=== PATIENT | male | born 1950 | race Caucasian/White ===

== ENCOUNTER → 2016-02-27 | Outpatient (CLI) | payer MEDICARE, BC ==
--- NOTE | 2016-02-28 07:15 | XR ---
EXAMINATION TYPE: XR chest 2V DATE OF EXAM: 02/27/2016 4:45 PM COMPARISON: 08/09/2015 HISTORY: Shortness of breath TECHNIQUE: Frontal and lateral views of the chest are obtained. FINDINGS: Scattered senescent parenchymal changes noted. Hyperinflation compatible with COPD. Postoperative sravanthi nges right hemithorax. Chronic pleural parenchymal opacity left lateral lung base. No evidence for infiltrate. No evidence for atelectasis. Heart size is stable. Mediastinal structures are stable and grossly unremarkable. No evidence for hilar prominence. Degenerative changes dorsal spine. IMPRESSION: 1. No evidence for acute pulmonary disease.
== END | disposition home or self-care (01) ==
LOC: RADXRMAIN 16:19
PROVIDERS: ATTEND Internal Medicine Hematology & Oncology
DX: I10 Essential (primary) hypertension (principal); C50 Malignant neoplasm of breast; J44.1 Chronic obstructive pulmonary disease with (acute) exacerbation; Z87.01 Personal history of pneumonia (recurrent)
CPT/HCPCS: 71020

== ENCOUNTER 2016-05-10 16:08 | Emergency (ER) | payer BC, MEDICARE, OTHER ==
[2016-05-10 16:18] VITALS: BP 125/72; PULSE 72; RESP 16; TEMP 98
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
--- NOTE | 2016-05-10 18:18 | XR ---
Lumbar spine HISTORY: Low back pain 3 views of the lumbar spine No comparisons Lumbar vertebral bodies show preserved alignment. There is loss of vertebral body height at L1. Loss of disc height at L5-S1 with associated vacuum phenomenon. Multilevel spondylosis. Sclerosis present in the posterior elements. Small calcifications over the left paraspinal location measuring 5 and 8 m m could possibly represent renal stones. There is a mild levoscoliosis. IMPRESSION: Compression fracture L1 with loss of height of approximately 25%. No evident significant retropulsion. Degenerative disc disease and facet arthropathy, possible nephrolithiasis
--- NOTE | 2016-05-10 18:19 | XR ---
Sacrum and coccyx HISTORY: Trauma and pain 3 views of the sacrum and coccyx, correlation lumbar spine same date Bone mineralization is maintained. No fracture or dislocation is evident. IMPRESSION: Degenerative disc disease, no acute abnormality
[2016-05-10] MEDS ORDERED: ACET/COD 300 MG/30 MG STARTER PACK 6 TAB BTL PO STA (18:33)
== END 2016-05-10 19:05 | disposition home or self-care (01) ==
LOC: EC 16:08
DX: S32.018A Other fracture of first lumbar vertebra, initial encounter for closed fracture (principal); Z87.891 Personal history of nicotine dependence; Z88.2 Allergy status to sulfonamides; Z91.030 Bee allergy status; Z87.820 Personal history of traumatic brain injury; W18.30XA Fall on same level, unspecified, initial encounter; Y92.009 Unspecified place in unspecified non-institutional (private) residence as the place of occurrence of the external cause
CPT/HCPCS: 72100; 72220; 99283

== ENCOUNTER 2016-05-11 15:44 | Inpatient (IN) | payer MEDICARE, BC ==
[2016-05-11] MEDS ORDERED: ACETAMINOPHEN IV (For NPO) 1,000 MG in EMPTY BAG 1 BAG IVPB STA (16:34)
[2016-05-11] MEDS ORDERED: KETOROLAC 30 MG/ML 1 ML VIAL IVP STA (16:34)
[2016-05-11] MEDS ORDERED: SODIUM CHLORIDE 0.9% 1,000 ML IV STA ×2 (16:34)
[2016-05-11] MEDS ORDERED: LORazepam 2 MG/ML SYRINGE IV STA (16:34)
[2016-05-11] MEDS ORDERED: MORPHINE SULFATE 4 MG/ML SYRINGE IV STA (16:34)
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
[2016-05-11 17:27] LABS: Prothrombin Time 10.6 sec (9.0-12.0)
[2016-05-11 17:28] LABS: ALT 30 U/L (21-72); AST 19 U/L (17-59); Alkaline Phosphatase 100 U/L (38-126); Anion Gap 10 mmol/L; Blood Urea Nitrogen 16 mg/dL (9-20); Calcium 9.8 mg/dL (8.4-10.2); Carbon Dioxide 26 mmol/L (22-30); Chloride 106 mmol/L (98-107); Glucose 97 mg/dL (74-99); Magnesium 1.8 mg/dL (1.6-2.3); Non-African American GFR(MDRD) >60 (>60 ml/min/1.73 sqM); Partial Thromboplastin Time 23.8 sec (22.0-30.0); Phosphorous 3.2 mg/dL (2.5-4.5); Potassium 4.5 mmol/L (3.5-5.1); Sodium 142 mmol/L (137-145); Total Bilirubin 1.4 mg/dL (0.2-1.3); Total Protein 7.2 g/dL (6.3-8.2)
[2016-05-11 17:30] LABS: Creatine Kinase 62 U/L (55-170)
[2016-05-11 17:34] LABS: Basophils % (A) 0 %; CH 31.2; CHCM 34.2; Eosinophils # (A) 0.1 k/uL (0-0.7); Eosinophils % (A) 2 %; HCT 46.5 % (39.0-53.0); HDW 2.81; HGB 15.6 gm/dL (13.0-17.5); Luc # (Auto) 0.13; Luc % (Auto) 3; Lymphocytes # (A) 0.7 k/uL (1.0-4.8); Lymphocytes % (A) 14 %; MCH 30.7 pg (25.0-35.0); MCHC 33.5 g/dL (31.0-37.0); MCV 91.6 fL (80.0-100.0); Mean Platelet Volume 7.2; Monocytes # (A) 0.4 k/uL (0-1.0); Monocytes % (A) 8 %; Neutrophils # (A) 3.7 k/uL (1.3-7.7); Neutrophils % (A) 73 %; RBC 5.07 m/uL (4.30-5.90); RDW 12.7 % (11.5-15.5); WBC 5.1 k/uL (3.8-10.6); WBC (Perox) 4.83
[2016-05-11 17:43] LABS: Creatine Kinase MB 1.6 ng/mL (0.0-2.4); Troponin I <0.012 ng/mL (0.000-0.034)
[2016-05-11] MEDS ORDERED: SODIUM CHLORIDE 0.9% 1,000 ML IV ONE (17:52)
[2016-05-11] MEDS ORDERED: MORPHINE SULFATE 4 MG/ML SYRINGE IVP STA (17:53)
[2016-05-11] MEDS ORDERED: ONDANSETRON 4 MG/2 ML VIAL IVP PRN (17:53)
--- NOTE | 2016-05-11 18:41 | CT ---
"EXAMINATION TYPE: CT lumbar spine wo con DATE OF EXAM: 05/11/2016 6:28 PM COMPARISON: CT abdomen pelvis March 06, 2014 HISTORY: Lower back pain. CT DLP: 2844.1 mGycm Automated exposure control for dose reduction was used. FINDINGS: There are 5 lumbar-type vertebra redemonstrated. Lumbar spine shows new acute mild compression type f racture deformity at L1 level. Fracture extends through superior and inferior as well as anterior and posterior endplates. No suspicious posterior retropulsion is however seen. Mild height loss anterior ly is noted. Remainder of vertebral body heights are maintained. There is mild disc space narrowing L 4-L5 and L5-S1 levels redemonstrated. Spinal canal is preserved. No large posterior disc herniations are seen. Paraspinal muscle bulk is maintained. Review of axial images shows mild to moderate facet arthropathy from L2-L3 through L5-S1 levels bilat erally. There is spinal canal effacement at L2-L3 level due to facet arthropathy with ligamentum flav um hypertrophy and broad disc bulge on axial image 56. Similar finding is noted L3-L4 level on axial image 67. There is most pronounced spinal canal effacement or stenosis at L4-L5 level due to moderate facet arthropathy and disc herniation on axial image 78. There are 2 calculi lower pole calyx left kidney on coronal image 33 redemonstrated felt stable IMPRESSION: THERE IS ACUTE COMMINUTED OR BURST MILD COMPRESSION TYPE FRACTURE DEFORMITY OF L1 VERTEBRA WITH EXTEN OLE TO THE POSTERIOR VERTEBRAL BODY MARGIN BUT NO SUSPICIOUS POSTERIOR RETROPULSION. OTHER FINDINGS NOTED ABOVE. A Yellow message has been communicated to Nish Monroy via the mGenerator | Critical Result lis lal on 05/11/2016 6:38 PM, Message ID [id number]."
[2016-05-11] MEDS: ANASTROZOLE 1 MG TAB PO SCH (21:52)
[2016-05-11 22:07] VITALS: BMI 31.2
[2016-05-12] MEDS: ACETAMINOPHEN IV (For NPO) 1,000 MG in EMPTY BAG 1 BAG IVPB SCH ×3 (01:31→11:27)
[2016-05-12 01:48] LABS: Appearance,Urine Clear (Clear); Bilirubin,Urine Negative (Negative); Calcium Oxalate Crystals,Urine Moderate /hpf; Glucose,Urine (UA) Negative (Negative); Ketones,Urine Negative (Negative); Leukocyte Esterase,Urine Negative (Negative); Mucus,Urine Occasional /hpf; Nitrite,Urine Negative (Negative); PH, Urine 5.5 (5.0-8.0); Particle Count 5303; Protein,Urine Trace (Negative); RBC,Urine 31 /hpf (0-5); Specific Gravity,Urine 1.032 (1.001-1.035); Squamous Epithelial Cell,Urine <1 /hpf (0-4); UA Billing (MACRO vs. MICRO) MICRO; Urobilinogen,Urine <2.0 mg/dL (<2.0); WBC,Urine 6 /hpf (0-5)
[2016-05-12] MEDS: MORPHINE SULFATE 4 MG/ML SYRINGE IVP PRN ×4 (02:33→19:33)
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
[2016-05-12] MEDS: DOCUSATE 100 MG CAP PO SCH ×2 (08:58→20:50)
[2016-05-12] MEDS: HYDROcodone/APAP 5-325MG 1 EACH TAB PO PRN ×2 (10:02→16:36)
[2016-05-12] MEDS: ENOXAPARIN 40 MG/0.4 ML SYRINGE SQ SCH (10:03)
[2016-05-12] MEDS: SENNOSIDES-DOCUSATE SODIUM 1 EACH TAB PO SCH ×2 (16:32→22:21)
[2016-05-12] MEDS ORDERED: Acetaminophen-Codeine 300-30mg TAB PO PRN (18:02)
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
[2016-05-12] MEDS: CALCIUM CARB-VIT D 250MG-125UN 1 EACH TAB PO SCH (19:32)
[2016-05-12] MEDS: ANASTROZOLE 1 MG TAB PO SCH (20:50)
[2016-05-13] MEDS: HYDROcodone/APAP 5-325MG 1 EACH TAB PO PRN ×3 (01:45→17:30)
[2016-05-13] MEDS: MORPHINE SULFATE 4 MG/ML SYRINGE IVP PRN ×3 (03:19→15:03)
[2016-05-13] MEDS: ENOXAPARIN 40 MG/0.4 ML SYRINGE SQ SCH (07:58)
[2016-05-13] MEDS: DOCUSATE 100 MG CAP PO SCH ×2 (08:00→20:35)
[2016-05-13 08:01] LABS: Basophils % (A) 0 %; CH 31.1; CHCM 34.3; Eosinophils # (A) 0.3 k/uL (0-0.7); Eosinophils % (A) 5 %; HDW 2.88; HGB 12.8 gm/dL (13.0-17.5); Luc # (Auto) 0.18; Luc % (Auto) 4; Lymphocytes # (A) 0.9 k/uL (1.0-4.8); Lymphocytes % (A) 19 %; MCH 30.6 pg (25.0-35.0); MCHC 33.6 g/dL (31.0-37.0); MCV 91.2 fL (80.0-100.0); Mean Platelet Volume 7.7; Monocytes # (A) 0.4 k/uL (0-1.0); Monocytes % (A) 9 %; Neutrophils % (A) 62 %; RBC 4.17 m/uL (4.30-5.90); RDW 12.5 % (11.5-15.5); WBC 4.7 k/uL (3.8-10.6); WBC (Perox) 4.79
[2016-05-13] MEDS: SENNOSIDES-DOCUSATE SODIUM 1 EACH TAB PO SCH ×2 (08:01→20:35)
[2016-05-13] MEDS: CALCIUM CARB-VIT D 250MG-125UN 1 EACH TAB PO SCH ×2 (08:01→17:31)
[2016-05-13 08:55] LABS: Anion Gap 12 mmol/L; Blood Urea Nitrogen 22 mg/dL (9-20); Calcium 9.6 mg/dL (8.4-10.2); Carbon Dioxide 21 mmol/L (22-30); Chloride 112 mmol/L (98-107); Glucose 87 mg/dL (74-99); Non-African American GFR(MDRD) >60 (>60 ml/min/1.73 sqM); Sodium 145 mmol/L (137-145)
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
[2016-05-13 09:07] LABS: Potassium 4.9 mmol/L (3.5-5.1)
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
--- NOTE | 2016-05-13 11:27 | XR ---
EXAMINATION TYPE: XR chest 1V DATE OF EXAM: 05/13/2016 10:33 AM COMPARISON: 02/27/2016 and 03/06/2014 HISTORY: 65-year-old male is here for rehabilitation TECHNIQUE: Single frontal view of the chest is obtained. FINDINGS: Heart is normal size. Patchy bibasilar opacities persist. Chronic blunting left costophrenic angle. S uggestion of a staple line at the peripheral right base and medial right apex. Chronic posttraumatic deformity at the right AC joint. IMPRESSION: Chronic changes with postsurgical changes on the right and chronic pleural parenchymal scarring at th e left base. No definite acute process.
[2016-05-13] MEDS ORDERED: BISACODYL 10 MG SUPP RECTAL STA (11:32)
[2016-05-13] MEDS: ALBUTEROL NEBULIZED 2.5 MG/3 ML INHALATION PRN ×2 (15:23→19:38)
[2016-05-13] MEDS: LACTULOSE 20 GM/30 ML CUP PO SCH ×3 (15:25→20:30)
[2016-05-13] MEDS: ANASTROZOLE 1 MG TAB PO SCH (20:45)
--- NOTE | 2016-05-13 23:38 | PN ---
DATE OF SERVICE: 05/13/2016 This 65-year-old gentleman who was admitted with fall as well as significant fracture of the L1 has back pain. The patient has been fitted with a brace at this time. No chest pain. No palpitation. No fever. On exam, alert and oriented x3. Pulse 61, blood pressure 115/67, respiration 18, temperature 98.2, pulse ox 91% on room air. HEENT: Conjunctivae normal. NECK: No jugular venous distention. CARDIOVASCULAR SYSTEM: S1, S2 muffled. RESPIRATORY SYSTEM: Breath sounds diminished at the bases. A few rhonchi. No crackles. ABDOMEN: Soft, non-tender. LEGS: No edema. No swelling. NERVOUS SYSTEM: No focal deficit. LABS: Hemoglobin 12.8. UA noted. ASSESSMENT: 1. Fall and compression fracture at L1 with severe back pain. 2. Gait dysfunction secondary to number 1. 3. Increased bilirubin. 4. Possible urinary tract infection. 5. History of chronic obstructive pulmonary disease. 6. History of gastrointestinal bleed. 7. History of traumatic brain injury. 8. History of gait dysfunction. 9. Appendectomy. 10. History of degenerative joint disease. 11. Remote history of nicotine dependence. 12. Obesity; body mass index of 31.2. 13. FULL CODE. RECOMMENDATIONS AND DISCUSSION: I recommend to continue with the current medications, continue with symptomatic treatment. Otherwise, pain management. Empiric antibiotics. Otherwise, PT, OT evaluation. Possible ECF rehab. Guarded prognosis. Further recommendations to follow.
[2016-05-14] MEDS: HYDROcodone/APAP 5-325MG 1 EACH TAB PO PRN ×4 (00:15→19:38)
[2016-05-14 07:26] LABS: Basophils % (A) 1 %; CH 30.7; Eosinophils # (A) 0.3 k/uL (0-0.7); Eosinophils % (A) 4 %; HCT 40.9 % (39.0-53.0); HDW 2.82; HGB 13.3 gm/dL (13.0-17.5); Luc # (Auto) 0.25; Luc % (Auto) 4; Lymphocytes # (A) 0.7 k/uL (1.0-4.8); Lymphocytes % (A) 10 %; MCH 30.2 pg (25.0-35.0); MCHC 32.4 g/dL (31.0-37.0); MCV 93.2 fL (80.0-100.0); Mean Platelet Volume 6.9; Monocytes # (A) 0.9 k/uL (0-1.0); Monocytes % (A) 13 %; Neutrophils # (A) 4.8 k/uL (1.3-7.7); Neutrophils % (A) 70 %; RBC 4.39 m/uL (4.30-5.90); RDW 12.5 % (11.5-15.5); WBC 6.9 k/uL (3.8-10.6); WBC (Perox) 6.66
[2016-05-14 07:47] LABS: Anion Gap 12 mmol/L; Blood Urea Nitrogen 20 mg/dL (9-20); Calcium 9.6 mg/dL (8.4-10.2); Carbon Dioxide 20 mmol/L (22-30); Chloride 110 mmol/L (98-107); Glucose 93 mg/dL (74-99); Non-African American GFR(MDRD) >60 (>60 ml/min/1.73 sqM); Potassium 4.6 mmol/L (3.5-5.1); Sodium 142 mmol/L (137-145)
[2016-05-14] MEDS: ALBUTEROL NEBULIZED 2.5 MG/3 ML INHALATION PRN (08:15)
[2016-05-14] MEDS: CALCIUM CARB-VIT D 250MG-125UN 1 EACH TAB PO SCH ×2 (08:24→20:51)
[2016-05-14] MEDS: SENNOSIDES-DOCUSATE SODIUM 1 EACH TAB PO SCH ×2 (08:24→20:54)
[2016-05-14] MEDS: DOCUSATE 100 MG CAP PO SCH ×2 (08:24→20:55)
[2016-05-14] MEDS: ENOXAPARIN 40 MG/0.4 ML SYRINGE SQ SCH (08:24)
--- NOTE | 2016-05-14 15:32 | P.PN ---
Progress Note - Text The patient is seen and examined today at bedside. We are following him in regards to his L1 compression fracture. He says the pain is still present particular when he tries to mobilize. The brace appears to be fitting quite well for him. He is not having any further neurologic changes. He does have history of traumatic brain injury which is stable. On exam his back has some tenderness at his thoracic lumbar junction. There is no open wounds lacerations or abrasions. He has motion intact in his hands and feet lower extremity. Sensations intact. His abdomen soft nontender. The brace is appropriate for him and well. L1 traumatic compression fracture, acute stable with no neurologic deficit History of traumatic brain injury The patient's L1 fracture is due to his trauma and appears to be grossly stable without any neurologic deficit. I do not think that he will require further imaging at this point. We have ordered an LSO brace for him which is fitting appropriately. He has been evaluated by our service as well as by the brace orthotists company was evaluated the brace on him. It is fitting well and does not seem to cause any undue harm to any other structures. Apparently his mother has some issues with the brace but in reviewing the brace and his fracture I think that the brace that we have ordered is appropriate for him and does fit well for him. I would not plan on changing the brace. I think that he should continue treatment in a conservative fashion with brace management for the fracture as the fracture fracture should heal well over the next 8-12 weeks. It is okay for him to mobilize with the brace on. He does not need to have the brace on while he is in bed. I would plan to see him back on an outpatient basis in the next 1-2 weeks for recheck evaluation and repeat x-rays of his thoracic or lumbar spine at L1 to review the fracture. If he is not having appropriate improvement or if there is significant evidence of instability or decreasing vertebral height we could consider the possibility of kyphoplasty at L1. I discussed this with him and he is not interested in any surgical intervention at this point. I think that is reasonable and I would plan for continued brace treatment with the current brace that he has ordered. I discussed this issue with the house staff as well and I understand mother's concerns but the brace that we have at bedside is appropriate for him and we will plan to continue use of his current brace.
[2016-05-14] MEDS: ANASTROZOLE 1 MG TAB PO SCH (20:55)
[2016-05-14] MEDS: CEFUROXIME 250 MG TAB PO SCH (20:55)
[2016-05-15] MEDS: HYDROcodone/APAP 5-325MG 1 EACH TAB PO PRN ×2 (06:15→12:59)
[2016-05-15] MEDS: ALBUTEROL NEBULIZED 2.5 MG/3 ML INHALATION PRN ×2 (08:08→19:32)
[2016-05-15 08:38] LABS: Basophils % (A) 1 %; CH 31.3; CHCM 34.3; Eosinophils # (A) 0.4 k/uL (0-0.7); Eosinophils % (A) 8 %; HCT 38.3 % (39.0-53.0); HDW 2.86; HGB 13.1 gm/dL (13.0-17.5); Luc # (Auto) 0.22; Luc % (Auto) 5; Lymphocytes # (A) 0.6 k/uL (1.0-4.8); Lymphocytes % (A) 12 %; MCH 31.4 pg (25.0-35.0); MCHC 34.3 g/dL (31.0-37.0); MCV 91.7 fL (80.0-100.0); Mean Platelet Volume 7.8; Monocytes # (A) 0.4 k/uL (0-1.0); Monocytes % (A) 8 %; Neutrophils # (A) 3.3 k/uL (1.3-7.7); Neutrophils % (A) 67 %; RBC 4.18 m/uL (4.30-5.90); RDW 12.5 % (11.5-15.5); WBC 4.9 k/uL (3.8-10.6); WBC (Perox) 5.25
--- NOTE | 2016-05-15 08:46 | PN ---
DATE OF SERVICE: 05/14/2016 This 65-year-old gentleman who was admitted with a fall and compression fracture L1, severe back pain also, the patient has been closely monitored. No chest pain, no palpitations. No fever. On exam, alert and oriented x3. Pulse 81, blood pressure 111/92, respirations 20, temperature 97.4, pulse ox 93% on room air. HEENT: Conjunctivae normal. NECK: No jugular venous distention. CARDIOVASCULAR: S1 and S2, muffled. RESPIRATORY: Breath sounds diminished at the bases. No rhonchi, no crackles. ABDOMEN: Soft. NERVOUS SYSTEM: Unchanged. Labs are noted. CO2 is 20. ASSESSMENT: 1. Fall and compression fracture L1 with severe back pain. 2. Gait dysfunction secondary to #1. 3. Increased bilirubin. 4. Urinary tract infection. 5. Chronic obstructive pulmonary disease history. 6. History of gastrointestinal bleed. 7. History of traumatic brain injury. 8. History of gait dysfunction. 9. History of appendectomy. 10. History of degenerative joint disease. 11. Remote history of nicotine dependence. 12. Obesity with body mass index of 31.2. 13. FULL CODE. RECOMMENDATIONS AND DISCUSSION: I recommend to continue the current medications, continue monitoring and symptomatic treatment. Otherwise, at this time I would recommend to monitor the patient closely. Otherwise, closely follow with PT, OT evaluation and pain management and possibly ECF rehab. Guarded prognosis because of multiple complex medical issues. Further recommendations to follow.
[2016-05-15 09:00] LABS: Anion Gap 8 mmol/L; Blood Urea Nitrogen 18 mg/dL (9-20); Calcium 9.5 mg/dL (8.4-10.2); Carbon Dioxide 26 mmol/L (22-30); Chloride 107 mmol/L (98-107); Glucose 98 mg/dL (74-99); Non-African American GFR(MDRD) >60 (>60 ml/min/1.73 sqM); Potassium 4.5 mmol/L (3.5-5.1); Sodium 141 mmol/L (137-145)
[2016-05-15] MEDS: CEFUROXIME 250 MG TAB PO SCH ×2 (09:16→20:03)
[2016-05-15] MEDS: ENOXAPARIN 40 MG/0.4 ML SYRINGE SQ SCH (09:17)
[2016-05-15] MEDS: DOCUSATE 100 MG CAP PO SCH ×2 (09:17→20:03)
[2016-05-15] MEDS: CALCIUM CARB-VIT D 250MG-125UN 1 EACH TAB PO SCH ×2 (09:18→18:17)
[2016-05-15] MEDS: SENNOSIDES-DOCUSATE SODIUM 1 EACH TAB PO SCH ×2 (09:20→20:05)
--- NOTE | 2016-05-15 15:32 | P.PN ---
Progress Note - Text Patient is seen and examined today at bedside. His mother is present with him at bedside. I discussed his issues with him and with her and answered their questions best my ability. On exam his is exam is essentially unchanged. His lower extremity is have sustained strength. He has no skin breakdown. I checked the brace again and I decided to remove the sternal anterior component of the TLSO brace. The brace should work well as a high chair back brace for him with this component removed. Lumbar compression fracture History of traumatic brain injury The patient should do well with continued conservative management for his compression fracture. He was having difficulty tolerating the sternal anterior brace component and I went ahead and remove the component. The brace still gives him good support as a chairback brace particular given his lumbar fracture that should be good stabilization for him without the sternal component. I discussed this with him and his mother and they understand and they're more comfortable with this. He will continue conservative management and can follow-up with me on an outpatient basis in approximately 3 weeks for recheck evaluation and repeat x-rays. He may ambulate to tolerance with the brace intact.
[2016-05-15] MEDS: BENZOCAINE 20% HEMORRHOIDAL OINT 28GM RECTAL SCH (18:18)
[2016-05-15] MEDS: ANASTROZOLE 1 MG TAB PO SCH (20:02)
[2016-05-15] MEDS ORDERED: HYDROCORTISONE SUPPOSITORY 25 MG SUPP RECTAL SCH (21:00)
[2016-05-15 22:57] VITALS: RESP 16
--- NOTE | 2016-05-15 23:49 | PN ---
DATE OF SERVICE: 05/15/2016 This 65-year-old gentleman who was admitted with fall and compression fracture L1 has severe back pain. The patient is being closely monitored. Pain management is being continued. Orthopedic Surgery is recommending a brace at this time. ECF rehab is also planned. On exam, alert and oriented x2. Dysarthric. Pulse 64, blood pressure 101/60, respiration 18, temperature 97.1, pulse ox 94% on room air. HEENT: Conjunctivae normal. CARDIOVASCULAR SYSTEM: S1, S2 muffled. RESPIRATORY SYSTEM: Breath sounds diminished at the bases. A few scattered rhonchi. No crackles. ABDOMEN: Soft, non-tender. LEGS: No edema. No swelling. NERVOUS SYSTEM: Unchanged. LABS: Hemoglobin 13.1, white count 4.9. CBC within normal limits. ASSESSMENT: 1. Fall and compression fracture, L1, with severe back pain. 2. Gait dysfunction secondary to #1. 3. Increased bilirubin. 4. Urinary tract infection. 5. Chronic obstructive pulmonary disease. 6. History of gastrointestinal bleed. 7. History of traumatic brain injury. 8. History of gait dysfunction. 9. History of appendectomy. 10. History of degenerative joint disease. 11. Remote history of nicotine dependence. 12. Obesity with body mass index of 31.2. 13. FULL CODE. RECOMMENDATIONS AND DISCUSSION: I recommend to continue with the current medications, continue with the monitoring, symptomatic treatment. Otherwise, close monitoring. Possible ECF rehab. Further recommendations to follow.
[2016-05-16] MEDS: HYDROcodone/APAP 5-325MG 1 EACH TAB PO PRN ×3 (02:43→15:09)
[2016-05-16 07:39] VITALS: BP 103/71; TEMP 97.7
[2016-05-16] MEDS: ALBUTEROL NEBULIZED 2.5 MG/3 ML INHALATION PRN ×2 (07:47→13:16)
[2016-05-16 08:10] LABS: Basophils % (A) 1 %; CHCM 33.8; Eosinophils # (A) 0.3 k/uL (0-0.7); Eosinophils % (A) 7 %; HCT 40.6 % (39.0-53.0); HDW 2.89; Luc # (Auto) 0.17; Luc % (Auto) 4; Lymphocytes # (A) 0.9 k/uL (1.0-4.8); Lymphocytes % (A) 19 %; MCH 29.6 pg (25.0-35.0); MCHC 32.1 g/dL (31.0-37.0); MCV 92.3 fL (80.0-100.0); Monocytes # (A) 0.4 k/uL (0-1.0); Monocytes % (A) 8 %; Neutrophils # (A) 2.9 k/uL (1.3-7.7); Neutrophils % (A) 62 %; RDW 12.7 % (11.5-15.5); WBC 4.7 k/uL (3.8-10.6); WBC (Perox) 5.21
[2016-05-16 08:30] LABS: Anion Gap 8 mmol/L; Blood Urea Nitrogen 20 mg/dL (9-20); Calcium 9.6 mg/dL (8.4-10.2); Carbon Dioxide 28 mmol/L (22-30); Chloride 108 mmol/L (98-107); Glucose 89 mg/dL (74-99); Non-African American GFR(MDRD) >60 (>60 ml/min/1.73 sqM); Potassium 4.6 mmol/L (3.5-5.1); Sodium 144 mmol/L (137-145)
[2016-05-16] MEDS: CALCIUM CARB-VIT D 250MG-125UN 1 EACH TAB PO SCH (08:30)
[2016-05-16] MEDS: DOCUSATE 100 MG CAP PO SCH (08:31)
[2016-05-16] MEDS: CEFUROXIME 250 MG TAB PO SCH (08:31)
[2016-05-16] MEDS: ENOXAPARIN 40 MG/0.4 ML SYRINGE SQ SCH (08:31)
[2016-05-16] MEDS: SENNOSIDES-DOCUSATE SODIUM 1 EACH TAB PO SCH (08:34)
--- NOTE | 2016-05-16 12:13 | DS ---
DATE OF ADMISSION: 05/13/2016 DATE OF DISCHARGE: FINAL DIAGNOSES: 1. Fall and compression fracture L1 with severe back pain. 2. Gait dysfunction secondary to #1. 3. Increased bilirubin. 4. Urinary tract infection. 5. Chronic obstructive pulmonary disease. 6. History of gastrointestinal bleed. 7. History of traumatic brain injury. 8. History of gait dysfunction. 9. History of appendectomy. 10. History of degenerative joint disease. 11. Remote history of nicotine dependence. 12. Obesity with a body mass index of 31.2. 13. FULL CODE. DISCHARGE DISPOSITION: The patient will be discharged in a stable with a guarded prognosis. Total time taken 35 minutes. HISTORY OF PRESENT ILLNESS: This 65-year-old gentleman with a past medical history of multiple medical problems was admitted with a fall and compression fracture of L1. The patient's pain and gait dysfunction treated symptomatically. Orthopedics saw the patient, recommended brace and PT, OT evaluation, possible ECF rehab. On exam, vitals are stable. CARDIOVASCULAR: S1 and S2 muffled. ABDOMEN: Soft. NERVOUS SYSTEM: Nonfocal. DISCHARGE ADVICE AND MEDICATIONS: 1. Diet is cardiac. 2. Activity limited until followup. 3. Follow up with Dr. Landers as mentioned earlier. 4. Follow up with Dr. Hurt or Dr. De Jesus in the ECF with CBC, BMP in 2 to 3 days and continued followup. 5. Follow up with Dr. Wheat in 2 weeks. 6. Other medications are: a. Albuterol q.i.d. and p.r.n. b. Arimidex 1 mg q.h.s. c. Calcium carbonate with vitamin D 1 p.o. b.i.d. d. Ceftin 500 mg p.o. b.i.d. for 5 days. e. Colace 100 mg p.o. b.i.d. f. Hydrocodone ([place]) 5 mg 1 to 2 tablets every 6 hours p.r.n. g. Senna 2 tablets q.h.s. p.r.n. h. Fentanyl patch 12 mcg q.72 hours until the back pain is controlled on a short-term basis. 7. Antibiotics for urinary tract infection.
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
[2016-05-16] MEDS: BENZOCAINE 20% HEMORRHOIDAL OINT 28GM RECTAL SCH (12:31)
[2016-05-16 13:27] VITALS: PULSE 78
== END 2016-05-16 15:10 | DRG 552 ==
LOC: EC 15:44 → 5MS5E 17:54 → OBSVTOIN 05-13 09:15
PROVIDERS: ADMIT Hospitalist; ATTEND Hospitalist
DX: S32.019A Unspecified fracture of first lumbar vertebra, initial encounter for closed fracture (principal); N39.0 Urinary tract infection, site not specified; J44.9 Chronic obstructive pulmonary disease, unspecified; E66.9 Obesity, unspecified; M19.90 Unspecified osteoarthritis, unspecified site; M46.96 Unspecified inflammatory spondylopathy, lumbar region; M51.36 Other intervertebral disc degeneration, lumbar region; R26.9 Unspecified abnormalities of gait and mobility; R47.1 Dysarthria and anarthria; Z68.31 Body mass index [BMI] 31.0-31.9, adult; Z79.810 Long term (current) use of selective estrogen receptor modulators (SERMs); Z85.3 Personal history of malignant neoplasm of breast; Z87.891 Personal history of nicotine dependence; Z96.651 Presence of right artificial knee joint; Z88.1 Allergy status to other antibiotic agents; Z88.2 Allergy status to sulfonamides; Z87.820 Personal history of traumatic brain injury; Z91.81 History of falling; W19.XXXA Unspecified fall, initial encounter; Y92.9 Unspecified place or not applicable
CPT/HCPCS: 36415; 71010; 72131; 80048; 80053; 81001; 82550; 82553; 83735; 84100; 84484; 85025; 85610; 85730; 87040; 87086; 93005; 94640; 94760; 96361; 96366; 96374; 96375; 96376; 99285

== ENCOUNTER → 2016-08-06 | Outpatient (CLI) | payer MEDICARE, BC ==
--- NOTE | 2016-08-06 11:45 | FL ---
EXAMINATION TYPE: FL barium swallow w video DATE OF EXAM: 08/06/2016 COMPARISON: 12/13/2015 HISTORY: Previous abnormal TECHNIQUE: Fluoroscopy. FINDINGS: Fluoroscopic guidance was provided for the procedure performed in conjunction with the [facility] pathology department. Please see complete report forthcoming from the Speech Pathology departmen t. Various consistencies from thin liquid to solids were administered. Penetration was evident with thin liquids and during the initial nectar thick liquid. Subsequent foll ow-up with nectar thickness negative. Chin tuck method did not improve the penetration of the thin li quids. No definite aspiration was observed. There is pooling within the vallecula during multiple sequences. There was normal propulsion of the bolus. IMPRESSION: 1. Multiple episodes of penetration with thin liquids. No aspiration was observed.
== END | disposition home or self-care (01) ==
LOC: RADFLMAIN 10:56
PROVIDERS: ATTEND Internal Medicine Critical Care Medicine
DX: R13.10 Dysphagia, unspecified (principal)
CPT/HCPCS: 74230

== ENCOUNTER → 2016-08-16 | Outpatient (CLI) | payer MEDICARE, BC ==
--- NOTE | 2016-08-18 09:36 | PE ---
Nuclear medicine PET/CT HISTORY: Breast carcinoma C50.621 Correlation to prior nuclear medicine PET/CT 06/02/2015, prior chest CT 11/25/2014, 08/01/2014 Patient received 10.2 mCi F-18 FDG intravenously in delayed scanning performed from the base of skull through the mid thighs. Localization and attenuation correction CT scan was performed Neck and chest: There is no evident adenopathy. No suspicious hypermetabolic uptake. Postop change no earl to the right breast, there may be a seroma present. Interstitial changes, postop changes are note d to the right lung, there is bilateral areas of pleural thickening. Emphysematous changes also suspe cted. Nodular density shows a cavitary appearance in the left lower lobe and measures approximately 2 .8 cm and has grown slightly, mild hypermetabolic uptake, SUV 3. Findings are similar to previous exa m. Abdomen pelvis: No evident liver mass. No retroperitoneal adenopathy. No suspicious hypermetabolic up take. No free fluid in the pelvis. Osseous structures are stable. No suspicious hypermetabolic uptake IMPRESSION: Findings in the left lower lobe could represent cavitary pneumonia or residual from prior infection rather than metastatic focus. There has been some interval growth, however, similar findin gs were noted on prior CT 08/01/2014 suggesting a waxing and waning recurrent process. Possible seroma right chest soft tissues.
== END | disposition home or self-care (01) ==
LOC: RADPETMAIN 11:27
PROVIDERS: ATTEND Internal Medicine Hematology & Oncology
DX: C50 Malignant neoplasm of breast (principal)
CPT/HCPCS: 78815; A9552

== ENCOUNTER → 2017-04-01 | Outpatient (CLI) | payer MEDICARE, BC ==
--- NOTE | 2017-04-01 14:28 | MM ---
Reason for exam: additional evaluation requested from prior study. History: Patient has history of breast cancer at age 63. Malignant US breast needle core RT of the right breast, July 11, 2015. Malignant US breast needle core addl RT of the right breast, July 11, 2015. Malignant US breast needle core RT of the right breast, November 29, 2013. Physical Findings: Nurse did not find any significant physical abnormalities on exam. MG Diagnostic Mammo LT w CAD CC and MLO view(s) were taken of the left breast. There is a 1.8cm mass in the central left breast at middle depth. These results were verbally communicated with the patient and result sheet given to the patient on 04/01/17. ASSESSMENT: Incomplete: need additional imaging evaluation, BI-RAD 0 RECOMMENDATION: Ultrasound of the left breast.
--- NOTE | 2017-04-01 14:31 | USB ---
Reason for exam: additional evaluation requested from abnormal screening. History: Patient has history of breast cancer at age 63. Malignant US breast needle core RT of the right breast, July 11, 2015. Malignant US breast needle core addl RT of the right breast, July 11, 2015. Malignant US breast needle core RT of the right breast, November 29, 2013. US Breast LT Left breast ultrasound includes all four quadrants, the retroareolar region and axilla. Finding demonstrates a 1.9 x 1.7 x 1.5cm irregular, solid, hypoechoic, vascular lesion at the retroareolar. These results were verbally communicated with the patient and result sheet given to the patient on 04/01/17. ASSESSMENT: Highly suggestive of malignancy, BI-RAD 5 RECOMMENDATION: Ultrasound core biopsy of the left breast. Patient's mother, power of regulatory attorney, request to call Dr. Abarca for follow up instructions. PRELIMINARY REPORT CALLED AND FAXED TO DR. ABARCA ON 04/01/17.
== END | disposition home or self-care (01) ==
LOC: RADMAMWWP 12:40
PROVIDERS: ATTEND Internal Medicine Hematology & Oncology
DX: Z08 Encounter for follow-up examination after completed treatment for malignant neoplasm (principal); Z85.3 Personal history of malignant neoplasm of breast
CPT/HCPCS: 77065

== ENCOUNTER → 2017-04-20 | Day surgery (SDC) | payer MEDICARE, BC ==
[2017-04-20 11:52] VITALS: RESP 12
[2017-04-20 13:04] VITALS: BP 119/70; PULSE 60; TEMP 98.4
--- NOTE | 2017-04-20 13:06 | USB ---
EXAMINATION TYPE: US biopsy breast VAD LT DATE OF EXAM: 04/20/2017 CLINICAL HISTORY: R92.8 Abnormal mammo Z85.3 HX of breast ca. TECHNIQUE: Ultrasound guided core biopsy of left breast. COMPARISON: 04/01/2017 FINDINGS: The procedure of ultrasound guided core biopsy was explained to the patient. Benefits, alternatives, and risks were discussed. An informed consent was then obtained. Preprocedural timeout was performed. The patient was placed in supine positioning for imaging and for the procedure. The overlying skin was prepped and draped in usual sterile fashion. 10 cc of lidocaine buffered with bicarbonate was used as anesthetic into the skin and subcutaneous tissue up to the retroareolar approximately 1.9 cm mass. Under ultrasound guidance, a 12-gauge vacuum assisted biopsy gun device was used to obtain 5 core samples. Following this, a coil-shaped biopsy marker was left in lesion and seen well sonographically and therefore no postprocedural mammogram was obtained. The patient tolerated the procedure well without any immediate complication. The patient was kept in the radiology department for short stay after the procedure and then discharged home in stable condition. IMPRESSION: Successful, uncomplicated ultrasound guided core biopsy of a highly suspicious 1.9 cm retroareolar left breast mass, full pathology results to follow. Pathology Results: Malignant BREAST, LEFT, CORE BIOPSY: INVASIVE DUCTAL CARCINOMA, SEE SURGICAL PATHOLOGY CANCER CASE SUMMARY. Recommendation Surgical consult of the left breast. SONU
== END ==
LOC: RADUSWWP 11:10
PROVIDERS: ATTEND Internal Medicine Hematology & Oncology
DX: C50.122 Malignant neoplasm of central portion of left male breast (principal); Z17.0 Estrogen receptor positive status [ER+]; Z85.3 Personal history of malignant neoplasm of breast
CPT/HCPCS: 88305; 19083; A4648; J2001

== ENCOUNTER → 2017-05-09 | Outpatient (CLI) | payer MEDICARE, BC ==
--- NOTE | 2017-05-12 07:33 | PE ---
EXAMINATION TYPE: PET CT fusion skull to thigh DATE OF EXAM: 05/09/2017 COMPARISON: Prior PET/CT August 16, 2016. Left breast mammogram and ultrasound April 01, 2017 HISTORY: History of breast cancer treated 2016 presents with left-sided recurrence on biopsy April 20, 2017 TECHNIQUE: Following the intravenous administration of 12.234 mCi of F-18 FDG, whole body images are performed from the skull base to the midthigh. Images are reviewed on the computer in the coronal, axial, and sagittal planes. Reconstructed rotating images are created on independent workstation and reviewed on the computer. A noncontrast CT is performed in conjunction with the PET scan. SCAN: Subsequent Scan FINDINGS: SKULL BASE AND NECK: No areas of suspicious hypermetabolic uptake are identified. CHEST, MEDIASTINUM, AND HILAR REGION: Corresponding to recent mammogram and ultrasound there is lower central hypermetabolic left breast mass measuring 2.0 x 1.7 cm axial image 124 with biopsy marker wi thin lesion, max SUV is 5.81. No additional areas of suspicious hypermetabolic uptake are identified in the remainder of the thorax including axillary region and right breast. There is right breast seroma or implant redemonstrated w ithout significant interval change. There is persistent and enlarging left lower lobe nodule/mass currently measuring 3.5 x 2.3 cm axial image 118, no abnormal hypermetabolic uptake is present at this level however. ABDOMEN AND PELVIS: No suspicious hypermetabolic uptake is seen. OSSEOUS STRUCTURES: No suspicious hypermetabolic uptake is noted. OTHER CT: There is scarring with calcification right lung apex redemonstrated. There is right-sided v olume loss with mediastinal shift redemonstrated. There is suspected 3.0 cm simple appearing cyst posteriorly upper to mid pole level left kidney. Just below this there is 7 mm nonobstructing calculus axial image 163. Scattered pelvic phleboliths are s een. There is facet arthropathy mid to lower lumbar spine. There is advanced compression type fracture def ormity L1 level now present. There are old posterior right mid to lower rib fractures redemonstrated. IMPRESSION: Abnormal hypermetabolic uptake corresponds to level of biopsy-proven neoplasm left breast . There is enlarging left lower lobe mass redemonstrated without definitive abnormal hypermetabolic u ptake. At minimum continued imaging surveillance is advised. No metastatic disease otherwise is prese nt.
== END | disposition home or self-care (01) ==
LOC: RADPETMAIN 09:55
PROVIDERS: ATTEND Internal Medicine Hematology & Oncology
DX: C50.122 Malignant neoplasm of central portion of left male breast (principal); Z92.21 Personal history of antineoplastic chemotherapy
CPT/HCPCS: 78815; A9552

== ENCOUNTER 2017-06-30 08:42 | Inpatient (IN) | payer MEDICARE, BC ==
[2017-06-25 11:39] VITALS: BMI 32.5
[~2017-06-30 08:42] MED LIST: DEXAMETHASONE SOD PHOSPHATE 10 MG/ML 1 ML VIAL IV ONE; HEPARIN SODIUM,PORCINE 5,000 UNIT/ML 1 ML VIAL SQ ONE; MIDAZOLAM 2 MG/2 ML VIAL IV PRN; ONDANSETRON ODT 4 MG TAB PO ONE; Pre Op ABX Message 1 EACH MISC MISCELLANE ONE; fentaNYL (PF) 50 MCG/ML 2 ML AMP IV PRN
[2017-06-30 09:49] LABS: Glucose,Whole Blood 81 mg/dL (75-99)
[2017-06-30] MEDS ORDERED: LACTATED RINGERS 1,000 ML IV ONE ×2 (09:54→15:24)
[2017-06-30] MEDS ORDERED: ALPRAZolam 0.5 MG TAB PO ONE (09:55)
[2017-06-30] MEDS ORDERED: ONDANSETRON 4 MG/2 ML VIAL IVP ONE (09:55)
[2017-06-30] MEDS ORDERED: LIDOCAINE 1% 20 ML VIAL (10MG/ML) FOR IV START INTRADERMA ONE (09:56)
--- NOTE | 2017-06-30 11:00 | NM ---
EXAMINATION TYPE: NM sentinel node injection DATE OF EXAM: 06/30/2017 COMPARISON: NONE HISTORY: Left breast carcinoma TECHNIQUE AND FINDINGS: The procedure of sentinel lymph node injection was explained to the patient. The benefits, alternatives, and risks were discussed. An informed consent was then obtained. Overlying skin is cleaned with sterile alcohol. Following this, 561 uCi Tc99m Tilmanocept was inject ed into the left upper outer quadrant periareolar region. The patient tolerated the procedure well without any immediate complication. The patient was kept in the radiology department for short stay after the procedure and then taken to surgery for surgical p rocedure what is presumed intraoperative gamma probe will be used for sentinel lymph node detection. IMPRESSION: Left breast radiotracer injection for sentinel node localization as above.
[2017-06-30] MEDS ORDERED: HYDROCORTISONE SUCCINATE 100 MG/2 ML VIAL IV ONE (11:47)
[2017-06-30 11:49] LABS: Basophils % (A) 0 %; Eosinophils # (A) 0.1 k/uL (0-0.7); Eosinophils % (A) 2 %; HCT 44.2 % (39.0-53.0); HGB 14.7 gm/dL (13.0-17.5); Lymphocytes # (A) 0.4 k/uL (1.0-4.8); Lymphocytes % (A) 6 %; MCH 30.3 pg (25.0-35.0); MCHC 33.2 g/dL (31.0-37.0); MCV 91.4 fL (80.0-100.0); Mean Platelet Volume 6.9; Monocytes # (A) 0.2 k/uL (0-1.0); Monocytes % (A) 3 %; Neutrophils # (A) 6.3 k/uL (1.3-7.7); Neutrophils % (A) 88 %; Platelet Count 213 k/uL (150-450); RBC 4.83 m/uL (4.30-5.90); RDW 12.8 % (11.5-15.5); WBC 7.2 k/uL (3.8-10.6)
--- NOTE | 2017-06-30 11:55 | XR ---
EXAMINATION TYPE: XR chest 1V portable DATE OF EXAM: 06/30/2017 Comparison: 05/13/[address] 05/09/2017 Clinical History: 67-year-old male pre op. Patient with history of right male breast cancer. Findings: Heart mildly enlarged. Diffuse interstitial densities felt all healed fracture deformity right-sided ribs. Chronic pleural parenchymal opacity at the left base. Patchy opacity at the right lower lung is unchanged. Impression: Prominent pleuroparenchymal changes especially in both lower lungs appear largely chronic. The enlarg ing but nonhypermetabolic left lower lobe mass seen on the patient's 05/09/2017 PET/CT is not well dem onstrated radiographically. That can be reassessed at the patient's subsequent cross-sectional follow -up. No definite acute process.
[2017-06-30 11:57] LABS: ALT 27 U/L (21-72); AST 20 U/L (17-59); Albumin 3.7 g/dL (3.5-5.0); Alkaline Phosphatase 112 U/L (38-126); Anion Gap 9 mmol/L; Blood Urea Nitrogen 25 mg/dL (9-20); Calcium 9.3 mg/dL (8.4-10.2); Carbon Dioxide 27 mmol/L (22-30); Chloride 109 mmol/L (98-107); Glucose 100 mg/dL (74-99); Magnesium 1.9 mg/dL (1.6-2.3); Potassium 4.7 mmol/L (3.5-5.1); Sodium 145 mmol/L (137-145); Total Bilirubin 0.8 mg/dL (0.2-1.3); Total Protein 6.6 g/dL (6.3-8.2)
[2017-06-30] MEDS ORDERED: HEPARIN SODIUM,PORCINE 5,000 UNIT/ML 1 ML VIAL SQ ONE (13:24)
[2017-06-30] MEDS ORDERED: ePHEDrine SULFATE/0.9% NACL/PF 50 MG/5 ML SYRINGE IV ONE (13:53)
[2017-06-30] MEDS ORDERED: PROPOFOL 10 MG/ML 20 ML VIAL IV ONE (13:53)
[2017-06-30] MEDS ORDERED: fentaNYL (PF) 50 MCG/ML 2 ML AMP ONE (13:53)
[2017-06-30] MEDS ORDERED: LIDOCAINE 1% INJ 10MG/ML (20 ML MDV) ONE (13:53)
[2017-06-30] MEDS ORDERED: SUCCINYLCHOLINE CHLORIDE 100 MG/5 ML SYR IV ONE (13:53)
[2017-06-30] MEDS ORDERED: SODIUM CHLORIDE 0.9% 50 ML with ceFAZolin 2,000 MG IV ONE ×2 (14:33)
[2017-06-30] MEDS ORDERED: METHYLENE BLUE 10 MG/ML (10 ML VIAL) INJ ONE (14:43)
[2017-06-30] MEDS ORDERED: LIDOCAINE 1% 20 ML VIAL (10MG/ML) FOR IV START SQ ONE (14:49)
[2017-06-30] MEDS ORDERED: ONDANSETRON 4 MG/2 ML VIAL IVP PRN (16:26)
[2017-06-30] MEDS ORDERED: NALOXONE 0.4 MG/ML 1 ML VIAL IV PRN (16:26)
--- NOTE | 2017-06-30 16:26 | P.OP ---
Date of Procedure: 06/30/17 Preoperative Diagnosis: Left breast cancer Postoperative Diagnosis: Left breast cancer Procedure(s) Performed: Left breast mastectomy and sentinel node biopsy Anesthesia: JAK Surgeon: Terri Karimi Estimated Blood Loss (ml): 50 IV fluids (ml): 1,000 Pathology: other (left breast and sentinal node) Condition: stable Disposition: PACU Indications for Procedure: Left breast cancer Operative Findings: Left breast cancer Description of Procedure: Patient was taken to the operating room and general anesthesia was induced. Following this the periareolar area was prepped using alcohol and 5 mL of half-strength methylene blue was injected. The breast was then massaged. The left breast and axilla were then prepped and draped in a sterile fashion. The skin was marked for superior and inferior skin flaps incisions. The superior incision was developed. The superior skin flap was then developed using electrocautery device. This was developed down to the pectoralis major muscle. Following this the inferior skin flap was developed. The breast was then taken from medial to lateral off the chest wall using the Harmonic scalpel to maintain hemostasis. The wound was well irrigated. The breast was then removed and oriented using sutures. The axilla was approached. The neoprobe was used to identify the area of increased radioactivity. Careful dissection was performed and the sentinel lymph node was removed. The 10 second count was [id number]. This was sent for frozen section evaluation. The lymph node was both radioactive and blue. Frozen section was negative for metastatic disease. Interrogation of the axilla further revealed that the background 10 second count was noted to was 32. No further blue lymph nodes were identified. The surgical site was well irrigated.. After we were assured that hemostasis was attained 2 ALMAZ drains were placed. One was placed in the axilla and the second placed under the skin flaps. The deeper tissues were closed using 3-0 Vicryl suture. The skin was closed using 4-0 Monocryl. The drains were secured using nylon suture. All instrument and sponge counts were correct at the end of the case. The patient tolerated the procedure in stable condition. A Lu wrap was placed.
[2017-06-30] MEDS: LACTATED RINGERS 1,000 ML IV SCH (18:18)
[2017-06-30] MEDS: HEPARIN SODIUM,PORCINE 5,000 UNIT/ML 1 ML VIAL SQ SCH (21:11)
[2017-06-30] MEDS: FAMOTIDINE 20 MG TAB PO SCH (21:11)
[2017-06-30] MEDS ORDERED: DEXTROMETHORPHAN POLISTIREX PO PRN (21:35)
[2017-06-30] MEDS ORDERED: ALBUTEROL NEBULIZED 2.5 MG/3 ML INHALATION PRN (21:35)
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
[2017-07-01] MEDS: MORPHINE SULFATE 4 MG/ML SYRINGE IV PRN ×3 (05:00→16:45)
[2017-07-01] MEDS: SODIUM CHLORIDE 0.45% 1,000 ML IV SCH ×3 (05:04→15:47)
[2017-07-01] MEDS: LACTATED RINGERS 1,000 ML IV SCH (07:28)
[2017-07-01] MEDS: FAMOTIDINE 20 MG TAB PO SCH ×2 (09:18→22:07)
[2017-07-01] MEDS: HEPARIN SODIUM,PORCINE 5,000 UNIT/ML 1 ML VIAL SQ SCH ×2 (09:18→22:07)
--- NOTE | 2017-07-01 10:16 | P.PN ---
Subjective Progress Note Date: 07/01/17 Patient is a 67-year-old white male postop day #1 from left mastectomy and sentinel node biopsy. He has a history of a closed head injury and lives at home with his mother. He will require postoperative assistance. At this time is tolerating his diet. He additionally has a history of pulmonary disease and is being followed by pulmonary. Patient's ALMAZ drains are serosanguineous, however the drains were open and having difficulty holding suction; the dressing was changed the plug on the top of the drain was taped after which they held suction. Objective - Vital Signs Vital signs: Vital Signs Temp 98.4 F 07/01/17 07:32 Pulse 76 07/01/17 08:24 Resp 16 07/01/17 07:32 BP 106/62 07/01/17 07:32 Pulse Ox 94 L 07/01/17 07:32 Intake & Output 06/30/17 07/01/17 07/01/17 18:59 06:59 18:59 Intake Total 550 2400 Output Total 50 825 Balance 500 1575 Intake: IV 550 Intake, IV Titration 1600 Amount Lactated Ringers 1,000 ml 800 As IV .[facility] Rx#: [id number] Sodium Chloride 0.45% 1, 800 000 ml @ 100 mls/hr IV . Q10H [facility] Rx#:[id number] Oral 800 Output: Drainage 75 ALMAZ A 45 ALMAZ B 30 Urine 750 Estimated Blood Loss 50 Other: Voiding Method Urinal # Voids 3 - Constitutional General appearance: Present: obese - Respiratory Details: Bilateral rhonchi Some inspiratory wheezing at the bases - Cardiovascular Rhythm: regular Heart sounds: normal: S1, S2 - Gastrointestinal General gastrointestinal: Present: soft - Integumentary Integumentary Comment(s): Incision clean and dry ALMAZ A 45 mL ALMAZ B 30 mL Drainage is serosanguineous - Psychiatric Psychiatric: Present: A&O x's 3 - Labs CBC & Chem 7: 06/30/17 11:33 06/30/17 11:33 Labs: Abnormal Lab Results - Last 24 Hours (Table) 06/30/17 06/30/17 Range/Units 11:33 11:33 Lymphocytes # 0.4 L (1.0-4.8) k/uL Chloride 109 H (98-107) mmol/L BUN 25 H (9-20) mg/dL Glucose 100 H (74-99) mg/dL Assessment and Plan Assessment: Impression/plan: 1. Patient status post post-left mastectomy sentinel node biopsy/some difficulty noted with the ALMAZ drains were holding suction, this seemed to be corrected after dressing change by taping the plug on the top of the drain 2. History of pulmonary disease 3. Prior closed head injury Plan: 1. Await pulmonary consult 2. Home healthcare consult 3. Probable discharge home tomorrow
[2017-07-01] MEDS ORDERED: ALBUTEROL NEBULIZED 2.5 MG/3 ML INHALATION SCH (12:00)
--- NOTE | 2017-07-01 14:38 | XR ---
EXAMINATION TYPE: XR chest 1V portable DATE OF EXAM: 07/01/2017 COMPARISON: 06/30/2017 HISTORY: Shortness of breath. Congestive heart failure. TECHNIQUE: Single frontal view of the chest is obtained. FINDINGS: There is no pneumothorax seen. Chronic interstitial prominence is unchanged from the prior callus right posterior mid rib fracture deformity is again seen. The previously seen right basilar p atchy opacity has resolved in the interim, likely representing resolved atelectasis. Left basilar pat jero opacity remains. The cardiac silhouette size is mildly enlarged. The osseous structures are in tact. There is generalized osseous demineralization. Again the known left lower lobe pulmonary mass i s not well visualized radiographically due to overlapping structures. IMPRESSION: Improved aeration of the right lung base, likely resolved atelectasis, with residual lef t basilar patchy opacity within the represent pneumonia or atelectasis. Again the patient's known lef t pulmonary mass is not visualized radiographically and can be followed with CT and/or PET.
--- NOTE | 2017-07-01 15:00 | PN ---
PROGRESS NOTE DATE OF SERVICE: 07/01/2017 This is a 67-year-old gentleman who was admitted after left breast mastectomy. He is being closely monitored. No chest pain. No palpitations. Patient is slightly drowsy. Patient has some rhonchi also. PHYSICAL EXAM: Alert and oriented x3. Pulse 70, blood pressure 106/62, respirations 16, temperature 98.4, pulse ox 94% on 3 L. HEENT: Conjunctivae normal. Oral mucosa moist. NECK: No jugular venous distention. No lymph node enlargement. CARDIOVASCULAR SYSTEM: S1, S2, muffled. RESPIRATORY: Breath sounds diminished at the bases, a few scattered rhonchi, no crackles. ABDOMEN: Soft, nontender. LEGS: No edema. NERVOUS SYSTEM: No focal deficits. LYMPH NODES: No lymph node enlargement, status post left mastectomy. LABS: CBC within normal limits. Glucose 100. ASSESSMENT: 1. Status post left breast mastectomy and sentinel lymph node biopsies for left breast cancer. 2. Chronic obstructive pulmonary disease. 3. Degenerative joint disease. 4. Gastrointestinal bleed. 5. History of traumatic brain injury. 6. Gait dysfunction. 7. Remote history of nicotine dependence. RECOMMENDATIONS AND DISCUSSION: In this 67-year-old gentleman who presented with multiple medical problems, I would recommend to continue the current medication, continue symptomatic treatment. I recommend discontinue the IV fluids and a portable chest x-ray to rule out the possibility of any CHF. Otherwise, I would also recommend to optimize the bronchodilator treatment. Closely follow with Dr. Mcgraw. Further recommendation to follow. MMODL / IJN: [id number] /
[2017-07-01] MEDS: IPRATROPIUM-ALBUTEROL 3 ML NEB INHALATION SCH ×2 (15:08→20:09)
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
[2017-07-01] MEDS: SYMBICORT 160-4.5 MCG INHALER INHALATION SCH (20:09)
[2017-07-02] MEDS: LACTATED RINGERS 1,000 ML IV SCH ×2 (01:41→22:03)
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
[2017-07-02] MEDS ORDERED: HYDROcodone/APAP 5-325MG 1 EACH TAB PO PRN (08:23)
[2017-07-02] MEDS: IPRATROPIUM-ALBUTEROL 3 ML NEB INHALATION SCH ×4 (08:51→19:17)
[2017-07-02] MEDS: SYMBICORT 160-4.5 MCG INHALER INHALATION SCH ×2 (08:51→19:17)
[2017-07-02] MEDS: FAMOTIDINE 20 MG TAB PO SCH ×2 (09:07→20:25)
[2017-07-02] MEDS: HEPARIN SODIUM,PORCINE 5,000 UNIT/ML 1 ML VIAL SQ SCH ×2 (09:07→20:25)
[2017-07-02] MEDS ORDERED: MORPHINE ORAL SOLN 10 MG/5 ML CUP PO PRN (09:46)
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
[2017-07-02] MEDS ORDERED: SENNOSIDES 8.6 MG TAB PO PRN (12:43)
[2017-07-02] MEDS: MAGNESIUM HYDROXIDE 2,400 MG/10 ML CUP PO PRN (12:52)
[2017-07-02] MEDS: DOCUSATE 100 MG CAP PO SCH ×2 (13:15→20:25)
--- NOTE | 2017-07-03 07:53 | P.PN ---
Subjective Progress Note Date: 07/03/17 Patient is a 67-year-old white male postop day #3 from left mastectomy and sentinel node biopsy. He has a history of a closed head injury and lives at home with his mother. He will require postoperative assistance. At this time is tolerating his diet. He additionally has a history of pulmonary disease and is being followed by pulmonary. Patient's ALMAZ drains are serosanguineous. Patient is denying pain at this time. After discussion with the patient's mother and discharge planning it appears that he will be discharged home with home health care assistance. Objective - Vital Signs Vital signs: Vital Signs Temp 98.6 F 07/03/17 00:15 Pulse 60 07/03/17 00:15 Resp 16 07/03/17 00:15 BP 105/60 07/03/17 00:15 Pulse Ox 92 L 07/03/17 00:15 Intake & Output 07/02/17 07/03/17 07/03/17 18:59 06:59 18:59 Intake Total 1250 350 Output Total 360 4 Balance 890 346 Weight 113.398 kg Intake: Intake, IV Titration 700 Amount Sodium Chloride 0.45% 1, 700 000 ml @ 100 mls/hr IV . Q10H EYAD Rx#:[id number] Oral 550 350 Output: Drainage 60 ALMAZ A 45 ALMAZ B 15 Urine 300 4 Other: Voiding Method Urinal Urinal # Voids 2 # Bowel Movements 1 - Constitutional General appearance: Present: obese - Respiratory Details: Scattered rhonchi bilaterally - Cardiovascular Rhythm: regular Heart sounds: normal: S1, S2 - Integumentary Integumentary Comment(s): Incision clean and dry ALMAZ serous drainage - Psychiatric Psychiatric Comment(s): Patient has a closed head injury - Labs CBC & Chem 7: 06/30/17 11:33 06/30/17 11:33 Assessment and Plan Assessment: Impression/plan: 1. Patient status post post-left mastectomy sentinel node biopsy 2. History of pulmonary disease 3. Prior closed head injury Plan: 1. Appreciate pulmonary consult 2. Home healthcare consult 3. Probable discharge home
--- NOTE | 2017-07-03 07:59 | P.DS ---
Providers Date of admission: 07/02/17 08:52 Attending physician: Nish Monroy Consults: 06/30/17 16:29 Consult Physician Routine Consulting Provider: Clint Wheat Consult Reason/Comments: medical managment, patient known to you Do you want consulting provider notified?: Yes 06/30/17 18:05 Consult Physician Routine Consulting Provider: Nish Monroy Consult Reason/Comments: medical management Do you want consulting provider notified?: Already Contacted 06/30/17 18:06 Consult Physician Routine Consulting Provider: Clint Wheat Consult Reason/Comments: copd Do you want consulting provider notified?: Yes Primary care physician: Clint Wheat Plan - Discharge Summary Discharge Rx Participant: No New Discharge Prescriptions: No Action Albuterol Nebulized [Ventolin Nebulized] 3 ml INHALATION RT-QID PRN PRN Reason: Shortness Of Breath Dextromethorphan Polistirex [Delsym] 30 mg PO BID PRN PRN Reason: Cough Discharge Medication List Albuterol Nebulized [Ventolin Nebulized] 3 ml INHALATION RT-QID PRN 06/25/17 [ History] Dextromethorphan Polistirex [Delsym] 30 mg PO BID PRN 06/25/17 [History] Follow up Appointment(s)/Referral(s): [facility] Nurse, [NON-STAFF] - Terri Karimi MD [STAFF PHYSICIAN] - 1 Week Activity/Diet/Wound Care/Special Instructions: teach family drain care Discharge Disposition: HOME WITH HOME HEALTH SERVICES
[2017-07-03] MEDS: HEPARIN SODIUM,PORCINE 5,000 UNIT/ML 1 ML VIAL SQ SCH ×2 (08:00→22:02)
[2017-07-03] MEDS: DOCUSATE 100 MG CAP PO SCH ×2 (08:00→22:01)
[2017-07-03] MEDS: FAMOTIDINE 20 MG TAB PO SCH ×2 (08:00→22:01)
[2017-07-03] MEDS: IPRATROPIUM-ALBUTEROL 3 ML NEB INHALATION SCH ×4 (08:02→21:28)
[2017-07-03] MEDS: SYMBICORT 160-4.5 MCG INHALER INHALATION SCH ×2 (08:02→21:25)
[2017-07-03] MEDS: MAGNESIUM HYDROXIDE 2,400 MG/10 ML CUP PO PRN (11:10)
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
[2017-07-04] MEDS: IPRATROPIUM-ALBUTEROL 3 ML NEB INHALATION SCH ×4 (07:54→19:26)
[2017-07-04] MEDS: SYMBICORT 160-4.5 MCG INHALER INHALATION SCH ×2 (07:54→19:26)
--- NOTE | 2017-07-04 09:37 | P.PN ---
Subjective Progress Note Date: 07/04/17 Principal diagnosis: Left breast cancer Patient doing well today. Denies abdominal pain. Tolerating diet. Objective - Vital Signs Vital signs: Vital Signs Temp 98.7 F 07/04/17 07:55 Pulse 68 07/04/17 08:04 Resp 20 07/04/17 08:00 BP 111/68 07/04/17 07:55 Pulse Ox 93 L 07/04/17 07:55 Intake & Output 07/03/17 07/04/17 07/04/17 18:59 06:59 18:59 Intake Total 999 1520 Output Total 190 35 Balance 809 1485 Intake: Oral 999 1520 Output: Drainage 40 35 ALMAZ A 40 30 ALMAZ B 0 5 Urine 150 Other: Voiding Method Urinal Toilet Urinal # Voids 2 4 1 - Exam Left chest wall incision clean and dry without ischemic changes or hematoma - Labs CBC & Chem 7: 06/30/17 11:33 06/30/17 11:33 Assessment and Plan (1) Breast cancer in male Narrative/Plan: Patient doing well today. The only issues currently is the 2 suction grenades are not holding suction well. May need to replace these. Current Visit: No Status: Chronic Priority: Medium Code(s): C50.929 - MALIGNANT NEOPLASM OF UNSP SITE OF UNSPECIFIED MALE BREAST SNOMED Code(s): 640122980
[2017-07-04] MEDS: LACTATED RINGERS 1,000 ML IV SCH (09:38)
[2017-07-04] MEDS: DOCUSATE 100 MG CAP PO SCH ×2 (09:39→22:21)
[2017-07-04] MEDS: FAMOTIDINE 20 MG TAB PO SCH ×2 (09:39→22:21)
[2017-07-04] MEDS: HEPARIN SODIUM,PORCINE 5,000 UNIT/ML 1 ML VIAL SQ SCH ×2 (09:39→22:20)
[2017-07-04] MEDS: MAGNESIUM HYDROXIDE 2,400 MG/10 ML CUP PO PRN (09:44)
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
--- NOTE | 2017-07-04 16:07 | PN ---
PROGRESS NOTE DATE OF SERVICE: 07/04/2017 This 67-year-old gentleman who was admitted after left breast mastectomy also had gait dysfunction. No chest pain. No palpitations. No fever. Patient also has significant COPD. On exam, alert and oriented x3. Pulse 58, blood pressure 111/68, respiration 20, temperature 98.7, pulse ox 93% on room air. HEENT: Conjunctivae normal. NECK: No jugular venous distention. CARDIOVASCULAR SYSTEM: S1, S2 muffled. RESPIRATORY SYSTEM: Breath sounds diminished at the bases. A few rhonchi. Expiratory wheezing also present. ABDOMEN: Soft. LEGS: No edema. No swelling. NERVOUS SYSTEM: No focal deficit. LABS AT THIS TIME: CBC within normal limits. Other labs are noted. ASSESSMENT: 1. Status post left breast mastectomy with sentinel lymph node biopsy for left breast cancer. 2. Chronic obstructive pulmonary disease. 3. Change in mental status, metabolic encephalopathy, possibly medication-induced. 4. Degenerative joint disease. 5. History of gastrointestinal bleed. 6. History of gait dysfunction. 7. History of traumatic brain injury. 8. Remote history of nicotine dependence. 9. History of tracheostomy. 10.Gait dysfunction. RECOMMENDATIONS AND DISCUSSION: I recommend to continue current medication, continue symptomatic treatment. Continue with the bronchodilators. Closely follow with Dr. Mcgraw. Otherwise, PT/OT evaluation. Possible ECF rehab. Further recommendations to follow. MMODL / IJN: [id number] /
[2017-07-05] MEDS: LACTATED RINGERS 1,000 ML IV SCH ×2 (05:51→21:55)
[2017-07-05] MEDS: HEPARIN SODIUM,PORCINE 5,000 UNIT/ML 1 ML VIAL SQ SCH ×2 (08:18→20:21)
[2017-07-05] MEDS: DOCUSATE 100 MG CAP PO SCH ×2 (08:18→20:21)
[2017-07-05] MEDS: FAMOTIDINE 20 MG TAB PO SCH ×2 (08:18→20:21)
[2017-07-05] MEDS: SYMBICORT 160-4.5 MCG INHALER INHALATION SCH ×2 (08:39→20:58)
[2017-07-05] MEDS: IPRATROPIUM-ALBUTEROL 3 ML NEB INHALATION SCH ×4 (08:39→20:57)
--- NOTE | 2017-07-05 10:07 | P.PN ---
Subjective Progress Note Date: 07/05/17 Principal diagnosis: Left breast cancer Patient has no complaints. Denies pain. Still having some issues with the drains maintaining suction. Objective - Vital Signs Vital signs: Vital Signs Temp 98.5 F 07/05/17 08:08 Pulse 105 H 07/05/17 08:50 Resp 16 07/05/17 08:08 BP 108/68 07/05/17 08:08 Pulse Ox 95 07/05/17 08:39 Intake & Output 07/04/17 07/05/17 07/05/17 18:59 06:59 18:59 Intake Total 473 790 Output Total 155 25 Balance 318 765 Intake: Oral 473 790 Output: Drainage 15 25 ALMAZ A 5 15 ALMAZ B 10 10 Urine 140 Other: Voiding Method Toilet Toilet Toilet Urinal Urinal Urinal # Voids 2 4 1 # Bowel Movements 0 1 - Exam Left chest wall incision clean and dry, no wounds or areas of dehiscence, drains closely evaluated and there appears to be air entering around the ALMAZ exit site preventing the grenades from holding suction - Labs CBC & Chem 7: 06/30/17 11:33 06/30/17 11:33 Assessment and Plan (1) Breast cancer in male Narrative/Plan: Will try some Vaseline dressing around the ALMAZ sites. If they continue to lose suction may require removal. Current Visit: No Status: Chronic Priority: Medium Code(s): C50.929 - MALIGNANT NEOPLASM OF UNSP SITE OF UNSPECIFIED MALE BREAST SNOMED Code(s): 057915681
--- NOTE | 2017-07-05 20:23 | PN ---
PROGRESS NOTE DATE OF SERVICE: 07/05/2017 This 67-year-old gentleman admitted after left breast mastectomy is improving significantly. No chest pain. No palpitations. No fever. EXAM: Alert and oriented times three. Pulse is 67, blood pressure 108/60, respirations 16, temperature 98.4, pulse ox 94% on room air. HEENT: Conjunctivae normal. Neck: No jugular venous distention. Cardiovascular: S1, S2 muffled. Respiratory: Breath sounds diminished in the bases. A few scattered rhonchi and crackles. Expiratory wheezing. Abdomen is soft, nontender. Legs: No edema. No swelling. LABORATORY DATA: CBC noted. ASSESSMENT: 1. Status post left breast mastectomy and sentinel lymph node biopsy for left breast cancer. 2. Chronic obstructive pulmonary disease with change in mental status, metabolic encephalopathy, possibly medication induced. 3. Degenerative joint disease. 4. History of gastrointestinal bleed. 5. History of gait dysfunction. 6. History of traumatic brain injury. 7. Remote history of nicotine dependence. 8. History of tracheostomy. 9. Gait dysfunction. RECOMMENDATIONS AND DISCUSSION: Recommend to continue current medications, management and symptomatic treatment. Otherwise, continue the bronchodilators. Closely follow with multiple consultants. Possible ECF rehab tomorrow. Further recommendations to follow. MMODL / IJN: [id number] /
[2017-07-06] MEDS: IPRATROPIUM-ALBUTEROL 3 ML NEB INHALATION SCH ×2 (07:08→13:24)
[2017-07-06] MEDS: SYMBICORT 160-4.5 MCG INHALER INHALATION SCH (07:08)
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
[2017-07-06] MEDS: DOCUSATE 100 MG CAP PO SCH (09:35)
[2017-07-06] MEDS: FAMOTIDINE 20 MG TAB PO SCH (09:35)
[2017-07-06] MEDS: HEPARIN SODIUM,PORCINE 5,000 UNIT/ML 1 ML VIAL SQ SCH (09:35)
[2017-07-06 10:25] VITALS: BP 105/67; PULSE 91; RESP 18; TEMP 98.2
--- NOTE | 2017-07-06 12:03 | DS ---
DISCHARGE SUMMARY FINAL DIAGNOSES: 1. Status post left breast mastectomy and sentinel lymph node biopsy for left breast cancer. 2. Chronic obstructive pulmonary disease acute exacerbation. 3. Change in mental status, metabolic encephalopathy, possibly medication induced. 4. Degenerative joint disease. 5. History of gastrointestinal bleed. 6. History of gait dysfunction. 7. History of traumatic brain injury. 8. Remote history of nicotine dependence. 9. History of tracheostomy. 10.Gait dysfunction. DISCHARGE DISPOSITION: Patient is being discharged in stable condition with guarded prognosis. Patient being transferred to [facility] on [facility]. Total time taken 35 minutes. HISTORY OF PRESENT ILLNESS: This 67-year-old gentleman with past medical history of multiple medical problems was admitted with left breast mastectomy and recent sentinel lymph node biopsy. The patient also had COPD exacerbation and multiple complex medical issues, treated symptomatically and the patient will be evaluated by PT, OT, and the patient will be sent to [facility] on [facility] for further rehabilitation. The patient follows with Dr. Wheat and Dr. Wheat will follow the patient in [facility] on a p.r.n. basis along with Dr. De Jesus. On exam, vital signs are stable. Abdomen soft. Respiratory: A few rhonchi. Chest status post surgery. DISCHARGE ADVICE AND MEDICATIONS: 1. Diet is cardiac diet. 2. Activity limited until followup. 3. Follow up with Dr. Wheat in two to three days. 4. Follow up with Dr. De Jesus in the ECF. 5. CBC and BMP in ECF 2-3 days. MEDICATIONS ARE: 1. Symbicort 160/4.5 two puffs b.i.d. 2. Delsym 30 mg p.o. b.i.d. p.r.n. 3. Colace 100 mg p.o. b.i.d. 4. Pepcid 20 mg p.o. b.i.d. 5. Heparin 5000 subcu b.i.d. until the patient more ambulatory. 6. [place] 5 mg q.6h p.r.n. 7. DuoNeb q.i.d. and p.r.n. 8. Senokot-S 8.6 mg p.o. daily. Once again the patient is being discharged in stable condition with guarded prognosis. MMODL / IJN: [id number] /
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
== END 2017-07-06 13:32 | DRG 42 ==
LOC: OR 08:42 → 3SUR 16:30 → OR 07-02 08:51 → 3SUR 07-02 08:52
PROVIDERS: ADMIT Hospitalist; ATTEND Hospitalist
PROC: 0HTU0ZZ Resection of Left Breast, Open Approach (ICD-10-PCS; principal; 2017-06-30 12:20)
PROC: 07B60ZX Excision of Left Axillary Lymphatic, Open Approach, Diagnostic (ICD-10-PCS; 2017-06-30 12:20)
DX: G92 Toxic encephalopathy (principal); J43.9 Emphysema, unspecified; C50.922 Malignant neoplasm of unspecified site of left male breast; T40.605A Adverse effect of unspecified narcotics, initial encounter; F32.9 Major depressive disorder, single episode, unspecified; F41.9 Anxiety disorder, unspecified; G47.00 Insomnia, unspecified; R26.9 Unspecified abnormalities of gait and mobility; K59.00 Constipation, unspecified; G47.33 Obstructive sleep apnea (adult) (pediatric); M19.91 Primary osteoarthritis, unspecified site; F17.201 Nicotine dependence, unspecified, in remission; E66.9 Obesity, unspecified; Z68.32 Body mass index [BMI] 32.0-32.9, adult; Z79.811 Long term (current) use of aromatase inhibitors; Z79.899 Other long term (current) drug therapy; Z15.01 Genetic susceptibility to malignant neoplasm of breast; Z17.0 Estrogen receptor positive status [ER+]; Z90.11 Acquired absence of right breast and nipple; Z85.3 Personal history of malignant neoplasm of breast; Z87.820 Personal history of traumatic brain injury; Z86.14 Personal history of Methicillin resistant Staphylococcus aureus infection; Z87.891 Personal history of nicotine dependence; Z92.3 Personal history of irradiation; Z96.651 Presence of right artificial knee joint; Z91.81 History of falling; Z92.21 Personal history of antineoplastic chemotherapy; Z88.2 Allergy status to sulfonamides; Z91.048 Other nonmedicinal substance allergy status; Z88.1 Allergy status to other antibiotic agents; Z91.030 Bee allergy status; Z80.0 Family history of malignant neoplasm of digestive organs
CPT/HCPCS: 38792; 71045; 80053; 83735; 85025; 88307; 88331; 88341; 88342; 93005; 94640; 94760

== ENCOUNTER → 2017-07-09 | Outpatient (CLI) | payer MEDICARE, BC ==
[2017-07-09 10:02] VITALS: BMI 33.0
--- NOTE | 2017-07-09 11:02 | P.PN ---
Progress Note - Text Progress Note Date: 07/09/17 Patient is status post left breast mastectomy and sentinel node biopsy performed 06-30-17. Postoperatively the patient did well however he is a closed head injury patient and lives with his mother who is unable to care for him and was thus discharged to an extended care facility. Patients drains serous. No evidence of hematoma. Patient without complaints. Physical Exam: mild erythema at the lateral aspect of the incision drain serous uncertain of amount, therefore will continue present therapy Incision/Plan: 1. follow with Dr. Abarca 2. follow up in one week 3. will give a week of Keflex 4. we are requesting recoding the amount from each drain per day and as needed cc: Rima Figueroa Naquvi
== END ==
LOC: WWCWWP 09:57
PROVIDERS: ATTEND Surgery
DX: Z90.12 Acquired absence of left breast and nipple (principal); Z53.9 Procedure and treatment not carried out, unspecified reason

== ENCOUNTER → 2017-07-16 | Outpatient (CLI) | payer MEDICARE, BC ==
[2017-07-16 10:28] VITALS: BMI 30.9
--- NOTE | 2017-07-16 11:32 | P.PN ---
Progress Note - Text Progress Note Date: 07/16/17 Patient presents for postoperative evaluation. His ALMAZ drains are putting over 30 mL per day. The output is straw-colored. There is no evidence of any infection. His incision is clean and dry. At this time we will not remove the ALMAZ drains. He will continue present therapy. We will call the [facility] facility next week to see him much the drains are putting out. If it is less than 30 mL for 2 days in a row for a drain and that drain may be reviewed with next week. Otherwise will continue the drains in place at the present time, and he will be seen in two weeks. The patient has no complaints.
== END ==
LOC: WWCWWP 10:03
PROVIDERS: ATTEND Surgery
DX: Z53.9 Procedure and treatment not carried out, unspecified reason (principal)

== ENCOUNTER → 2017-07-23 | Outpatient (CLI) | payer MEDICARE, BC ==
[2017-07-23 11:09] VITALS: BP 102/70; PULSE 66; TEMP 96.2; BMI 30.9
--- NOTE | 2017-07-23 11:33 | P.PN ---
Subjective Progress Note Date: 07/23/17 Patient is doing well at this time. He presents for evaluation of his ALMAZ drainage output. The drainage output is recorded although decreasing in quantity still exceeds 30 mL for the last 2 days in a row. After discussion with his mother and the patient were going to leave the drain in until next week. There is no evidence of any infection. The patient has no fever or chills. The patient is doing well. lungs: clear heart: RRR Plan: follow up in 1 week will call prior to see amount of output from drain Objective - Vital Signs Vital signs: Vital Signs Temp 96.2 F L 07/23/17 11:03 Pulse 66 07/23/17 11:03 Resp BP 102/70 07/23/17 11:03 Pulse Ox 93 L 07/23/17 11:03 Intake & Output 07/22/17 07/23/17 07/23/17 18:59 06:59 18:59 Weight 109.316 kg
== END | disposition home or self-care (01) ==
LOC: WWCWWP 10:56
PROVIDERS: ATTEND Surgery
DX: Z53.9 Procedure and treatment not carried out, unspecified reason (principal)

== ENCOUNTER → 2017-07-30 | Outpatient (CLI) | payer MEDICARE, BC ==
--- NOTE | 2017-07-30 14:56 | P.PN ---
Subjective Progress Note Date: 07/30/17 Patient is status post left mastectomy and sentinel node biopsy on 07-01-17. He is to follow with DR. Abarca. At this time the patient has no complaints. No fevers or chills. Both drains have been removed. Objective - Constitutional General appearance: Present: obese - Respiratory Details: decreased breath sounds at the bases - Cardiovascular Rhythm: regular Heart sounds: normal: S1, S2 - Additional findings Additional findings: incision clean and dry, a seroma is noted Assessment and Plan Assessment: Imp/plan: 1. patient status post left mastectomy 2. follow up with Dr. Abarca 3. follow up here in one week Patient is noted to have a seroma which is asymptomatic. We have discussed aspiration but at this time we are going to follow conservatively and most likely this will be reabsorbed by the body. He will follow up in 1 week just to check on this. Cc: Dr. Hurt, Dr. Wheat, Dr. Abarca
== END ==
LOC: WWCWWP 14:45
PROVIDERS: ATTEND Surgery
DX: Z53.9 Procedure and treatment not carried out, unspecified reason (principal)

== ENCOUNTER → 2017-08-06 | Outpatient (CLI) | payer MEDICARE, BC ==
--- NOTE | 2017-08-06 15:47 | P.PN ---
Progress Note - Text Progress Note Date: 08/06/17 Patient comes in today for evaluation. He is status post left breast mastectomy. He is doing well however, his mother states that he does have some coughing. He was recently seen by Dr. Abarca. He does have some swelling at the left mastectomy site consistent with a seroma. Following discussion the patient and his mother wish the seroma to be aspirated. Lungs: Rhonchi Heart: Regular rate and rhythm Incision: Clean and dry some scabbing at the midportion of the incision and fluid accumulation under the flaps noted, no evidence of infection procedure note: Following discussion of the risks and benefits of aspiration of the seroma the patient chose to have a seroma aspirated on his left chest wall. The area was prepped using alcohol. An 18-gauge needle was introduced with a 20 mL syringe. Approximately 320 mL of straw-colored fluid were withdrawn. Following this a dressing was applied. The patient tolerated the procedure in stable condition. Impression/plan: 1. Status post left mastectomy 2. Seroma at mastectomy site 3. Rhonchi Plan: 1. Follow-up in 2 weeks to reevaluate seroma site 2. Follow with medical MD/ DR. Wheat regarding rhonchi cc: Dr. Wheat, DR. Abarca
[2017-08-06 16:52] VITALS: BP 100/62; PULSE 81; TEMP 96.9; BMI 32.0
== END ==
LOC: WWCWWP 15:02
PROVIDERS: ATTEND Surgery
DX: Z90.12 Acquired absence of left breast and nipple (principal); L76.34 Postprocedural seroma of skin and subcutaneous tissue following other procedure

== ENCOUNTER → 2017-08-17 | Outpatient (CLI) | payer MEDICARE, BC ==
--- NOTE | 2017-08-18 11:28 | ECHOF ---
Referral Reason:Z01.818 preprocedural examination C50.122 MEASUREMENTS -------- HEIGHT: 177.8 cm WEIGHT: 108.9 kg BP: IVSd: 0.9 cm (0.6 - 1.1) LVIDd: 4.3 cm (3.9 - 5.3) LVPWd: 1.0 cm (0.6 - 1.1) IVSs: 1.2 cm LVIDs: 2.1 cm LVPWs: 1.2 cm Ao Diam: 3.5 cm (2.0 - 3.7) AV Cusp: 2.4 cm (1.5 - 2.6) LA Diam: 3.3 cm (2.7 - 3.8) MV E Urbano: 0.56 m/s MV DecT: 149 ms MV A [place]: 0.45 m/s MV E/A Ratio: 1.23 RAP: 5.00 mmHg RVSP: 9.94 mmHg FINDINGS -------- Sinus rhythm. This was a technically difficult study with suboptimal views. The left ventricular size is normal. Left ventricular wall thickness is normal. Overall left vent ricular systolic function is normal with, an EF between 55 - 60 %. The right ventricle is normal in size and function. The left atrium was not well visualized. The right atrium was not well visualized. Lumason used The aortic valve was not well visualized. There is trace mitral regurgitation. Trace tricuspid regurgitation present. The right ventricular systolic pressure, as measured by Dopp ler, is 9.94mmHg. The pulmonic valve was not well visualized. The pericardium is normal. CONCLUSIONS -------- 1. Sinus rhythm. 2. This was a technically difficult study with suboptimal views. 3. The left ventricular size is normal. 4. Left ventricular wall thickness is normal. 5. Overall left ventricular systolic function is normal with, an EF between 55 - 60 %. 6. The right ventricle is normal in size and function. 7. The left atrium was not well visualized. 8. The right atrium was not well visualized. 9. Lumason used 10. The aortic valve was not well visualized. 11. There is trace mitral regurgitation. 12. Trace tricuspid regurgitation present. 13. The right ventricular systolic pressure, as measured by Doppler, is 9.94mmHg. 14. The pulmonic valve was not well visualized. 15. The pericardium is normal. COTTON HEADER: Anjelica De Leon RDCS
== END | disposition home or self-care (01) ==
LOC: RADECHMAIN 15:32
PROVIDERS: ATTEND Internal Medicine Hematology & Oncology
DX: Z01.818 Encounter for other preprocedural examination (principal); C50.122 Malignant neoplasm of central portion of left male breast
CPT/HCPCS: C8929; Q9950; 93306

== ENCOUNTER → 2017-08-25 | Outpatient (CLI) | payer MEDICARE, BC ==
[2017-08-27 08:58] VITALS: BP 119/66; PULSE 76; TEMP 95.8
== END | disposition home or self-care (01) ==
LOC: WWCWWP 11:53
PROVIDERS: ATTEND Surgery
DX: N64.9 Disorder of breast, unspecified (principal)
CPT/HCPCS: 87070; 87205

== ENCOUNTER → 2017-08-29 | Outpatient (CLI) | payer MEDICARE, BC ==
--- NOTE | 2017-08-31 07:36 | MR ---
EXAMINATION TYPE: MR brain wo/w con DATE OF EXAM: 08/29/2017 COMPARISON: 06/11/2015 HISTORY: headaches, Breast cancer, Gadavist 10ml TECHNIQUE: Multiplanar, multisequence images of the brain and brainstem is performed without and with IV contras t, utilizing 10 mL intravenous Gadavist . Exam is limited by patient motion. FINDINGS: Diffusion weighted images demonstrate no evidence of a recent infarct or other diffusion ab normality. Within the posterior fossa impressing upon the dural venous sinuses there is a nonenhancin g 3.2 x 1.9 cm T2 hyperintense and T1 hypointense lesion most compatible with a benign arachnoid cyst . There is no extra-axial fluid collection. There are few subcentimeter foci of nonenhancing perivent ricular and subcortical T2/FLAIR hyperintensity most commonly related to sequela of chronic microangi opathy. These do not demonstrate surrounding vasogenic edema.. The ventricular system and cisternal spaces are normal in size and appearance. The brain volume is age appropriate with evidence of volum e loss as there is prominence of the peripheral sulci and ventricular system. Midline structures demonstrate normal morphology. The craniocervical junction appears within normal limits. Post contrast images demonstrate no abnormal enhancement. The dural venous sinuses appear pa tent. The visualized sinuses are clear and the globes are intact. IMPRESSION: Exam is slightly limited by patient motion, however there is identified enhancing intracr anial mass to suggest metastasis. No abnormal leptomeningeal enhancement. Few nonenhancing white olayinka er changes, likely on the basis of chronic microangiopathy. Benign arachnoid cyst.
== END | disposition home or self-care (01) ==
LOC: RADMRIMAIN 13:09
PROVIDERS: ATTEND Internal Medicine Hematology & Oncology
DX: G93.0 Cerebral cysts (principal); R90.89 Other abnormal findings on diagnostic imaging of central nervous system; C50.122 Malignant neoplasm of central portion of left male breast
CPT/HCPCS: 70553; A9581

== ENCOUNTER → 2017-09-10 | Outpatient (CLI) | payer MEDICARE, BC ==
--- NOTE | 2017-08-27 14:23 | P.PN ---
Subjective Progress Note Date: 08/25/17 Patient is a 67-year-old white male who is status post left breast mastectomy. He has a closed head injury and lives with his mother. The patient had a seroma aspirated from the left mastectomy site several weeks ago. His mother states that the area has become increasingly firm and erythematous. The patient denies any pain. There has been no fever. Physical examination: Lungs: Few scattered rhonchi Heart: Regular rate and rhythm Left breast mastectomy site: No erythema of concern, no warmness to the site, seroma is present After discussion patient and his mother wish the area to be aspirated. The area of concern was prepped using alcohol, an 18-gauge needle with a 60 mL syringe was used to aspirate the fluid. The fluid was francisco in color. Approximately 240 mL of fluid were removed. The patient tolerated the procedure in stable condition. Impression/plan: 1. Seroma status post left breast mastectomy 2. Patient to follow with Dr. Hartley as well as Dr. Abarca 3. Fluid sent for cultures 4. Patient started on oral antibiotics
--- NOTE | 2017-09-10 13:39 | P.PN ---
Progress Note - Text Progress Note Date: 09/10/17 Patient is a 67-year-old white male with a history of a head injury who is status post in June a left breast mastectomy. He had drainage of seroma on . The patient was recently seen by Dr. Wheat and felt to have possible pneumonia. He was given a prescription for antibiotics as per his mother and this will be started in the near future. As per Dr. Santiago it was not felt that he was stable to have placement of a Port-A-Cath for any chemotherapy at this time. The patient has persistent fullness in the left chest wall but much decreased since the seroma was drained. The fluid was sent for cytology which revealed free air PMNs and no organisms. The patient is not complaining of any pain or changes in the left chest wall. His mother is concerned that this still appears to be prominent. Physical exam: Examination of the left chest wall reveals the area to be slightly raised but no large seroma is identified There is no evidence of infection There is no pain at the site There is no superficial recurrence of cancer noted Lungs: Rhonchi bilateral greater on the right base Impression/plan: 1. 67-year-old white male history of closed head injury 2. Status post bilateral mastectomy with for breast cancer 3. Recent drainage of seroma left chest wall, does not need to be drained on today's visit Plan: 1. Antibiotics as per pulmonary 2. Continue to follow with medical oncology 3. Follow here in 3 weeks time Cc: Dr. Abarca, Dr. Wheat
== END ==
LOC: WWCWWP 12:16
PROVIDERS: ATTEND Surgery
DX: Z53.9 Procedure and treatment not carried out, unspecified reason (principal)

== ENCOUNTER → 2017-10-01 | Outpatient (CLI) | payer MEDICARE, BC ==
[2017-10-01 13:01] VITALS: BP 108/59; PULSE 71; RESP 12; TEMP 97.6; BMI 29.7
--- NOTE | 2017-10-01 13:15 | P.PN ---
Progress Note - Text Progress Note Date: 10/01/17 Mr. Hubbard is a 67-year-old white male status post left mastectomy . His sentinel node was negative and his margins were negative for cancer. He comes in today with some concern that he has some firmness at the area of the incision. This appears to be redundant tissue and scar. The patient has no evidence of any infection of the site and no redness or erythema. Physical examination Examination of the area of the scar does reveal some firmness at the site of the incision which appears to be consistent with scar tissue no evidence of any seroma The plan at this time is for an FNA of the area of concern The area was prepped using alcohol 22-gauge needle on a 10 mL syringe was utilized to make multiple passes into the area of firmness about 1 cc of seroma -like fluid was obtained as well as tissue obtained for cytology this is sent to pathology depending on results of this further recommendation to follow CC: Dr. Wheat, Dr. Abarca
== END ==
LOC: WWCWWP 12:37
PROVIDERS: ATTEND Surgery
DX: N64.89 Other specified disorders of breast (principal)
CPT/HCPCS: 88173; 88305

== ENCOUNTER 2017-10-07 10:16 | Day surgery (SDC) | payer MEDICARE, BC ==
[2017-10-06 09:27] VITALS: BMI 31.2
[~2017-10-07 10:16] MED LIST changes: +ALBUTEROL NEB (CONC) 2.5 MG/0.5 ML INHALATION ONE; +ATROPINE SULFATE 0.4 MG/ML 1 ML VIAL IM ONE; -DEXAMETHASONE SOD PHOSPHATE 10 MG/ML 1 ML VIAL IV ONE; -HEPARIN SODIUM,PORCINE 5,000 UNIT/ML 1 ML VIAL SQ ONE; +LACTATED RINGERS 1,000 ML IV SCH; +LIDOCAINE 1% 20 ML VIAL (10MG/ML) FOR IV START INTRADERMA PRN; +LIDOCAINE 2% (PF) 20 MG/ML 2 ML AMP INHALATION ONE; +LIDOCAINE VISCOUS 300 MG/15 ML CUP MUCOUS MEM ONE; -MIDAZOLAM 2 MG/2 ML VIAL IV PRN; -ONDANSETRON ODT 4 MG TAB PO ONE; -Pre Op ABX Message 1 EACH MISC MISCELLANE ONE; -fentaNYL (PF) 50 MCG/ML 2 ML AMP IV PRN
[2017-10-07] MEDS: LACTATED RINGERS 1,000 ML IV ONE ×2 (11:00→11:38)
[2017-10-07 11:01] VITALS: RESP 16; TEMP 98
[2017-10-07] MEDS ORDERED: MIDAZOLAM 2 MG/2 ML VIAL ONE (11:41)
[2017-10-07] MEDS ORDERED: PROPOFOL 10 MG/ML 20 ML VIAL IV ONE (11:41)
[2017-10-07] MEDS ORDERED: fentaNYL (PF) 50 MCG/ML 2 ML AMP ONE (11:41)
--- NOTE | 2017-10-07 12:38 | PCN ---
PROCEDURE NOTE PROCEDURE: Bronchoscopy, airway examination, therapeutic lavage, BAL. PREOPERATIVE DIAGNOSIS: Chronic obstructive pulmonary disease with retained secretions. POSTOPERATIVE DIAGNOSIS: Chronic obstructive pulmonary disease with retrained secretions. Asa Vazquez CRNA, provided unconscious sedation or general anesthesia. The operators were Dr. Wheat and Dr. Gupta. PROCEDURE: The patient had informed consent and universal timeout. After the patient was adequately sedated and being fully monitored, the bronchoscope was inserted through the right nostril. It passed through the right nasopharynx into the oropharynx. The hypopharynx was identified and topicalized. The hypopharyngeal structures were normal including anterior commissure, true cords, false cords, arytenoids, piriform sinuses, right and left vallecula. The tissues were crowded in that area. Some secretions were noted in that area, minimal at best. After topicalization, the bronchoscope was pushed through the glottic opening into the trachea. Trachea appeared somewhat collapsible. There were secretions noted throughout the trachea, particularly in the mid to lower trachea. They were suctioned. The tracheal mucosa was somewhat erythematous and hyperemic. Tracheal angelika was sharp. Right and left mainstem were topicalized. The right upper lobe and its 3 segments, the right middle lobe and its 2 segments, right lower lobe and its 5 segments, the left upper lobe proper and its 2 segments, the lingula and its 2 segments and the left lower lobe and its 4 segments all had similar findings of diffuse collapsibility. The airways were very inflamed. There was diffuse erythema and hyperemia. There was some vascular engorgement. Not much in the way of mucosal friability. There were thick yellow secretions noted throughout. There was no dominant mass. The secretions were suctioned with the aid of saline lavage. Next, the bronchoscope was wedged into the right middle lobe. The BAL took place. The patient tolerated the procedure well. Additional secretions were removed and the bronchoscope was removed. The patient will be recovered. I will talk to the patient's mother. No additional recommendations were made. MMODL / IJN: [id number] /
[2017-10-07 13:17] VITALS: BP 115/77; PULSE 80
[2017-10-07 17:18] LABS: Appearance,BF Hazy; Color,BF Colorless; Nucleated Cells, Body Fluid 32 /uL; RBC, Body Fluid 14 /uL
[2017-10-07 17:30] LABS: Mononuclear WBC,Body Fluid 30 %; Polynuclear WBC,Body Fluid 56 %; Total Cells Counted,Body Fluid 100
== END 2017-10-07 13:24 | disposition home or self-care (01) ==
LOC: ORWHC2ENDO 10:16
PROVIDERS: ATTEND Internal Medicine Critical Care Medicine
DX: J44.9 Chronic obstructive pulmonary disease, unspecified (principal); Z85.3 Personal history of malignant neoplasm of breast; Z87.820 Personal history of traumatic brain injury; Z87.828 Personal history of other (healed) physical injury and trauma; F17.200 Nicotine dependence, unspecified, uncomplicated; G47.33 Obstructive sleep apnea (adult) (pediatric); Z99.89 Dependence on other enabling machines and devices; Z79.899 Other long term (current) drug therapy; Z88.2 Allergy status to sulfonamides; Z91.030 Bee allergy status
CPT/HCPCS: 94640; 89050; 87252; 87070; 87205; 87116; 87102; 87206; 31624; J2250; J0461; J3010; J2704; J2001; 87498; 87502; 87529; 87634; 87798; 88108; 88305

== ENCOUNTER → 2017-10-29 | Outpatient (CLI) | payer MEDICARE, BC ==
[2017-10-29 13:09] VITALS: BP 109/66; PULSE 65; RESP 16; TEMP 97.5; BMI 31.3
--- NOTE | 2017-10-29 13:17 | P.PN ---
Progress Note - Text Progress Note Date: 10/29/17 Mr. Garcias is a 67-year-old gentleman who is status post bilateral mastectomies the most recent was a left mastectomy in June 2017. His sentinel node was negative and his margins were negative for cancer. He was seen on 8917 was some concern that he had some firmness in the area of the incision. This appeared to be redundant tissue and a FNA was performed. The specimen was virtually acellular nondiagnostic been no evidence of any atypia or cancer cells were noted. The patient at this time is doing well he has no evidence of any infection and no complaints related to the scar incision. Physical examination: Examination of the area of the chest wall does not reveal any evidence of recurrent cancer Axillary examination no evidence of any adenopathy of concern Heart regular rate and rhythm Lungs some coarse rhonchi noted at the bases Impression/plan: 1. patient status post bilateral mastectomies 2. COPD/followed by Dr. Wheat 3. follow up in 4 months here Plan: 1. Follow up here in 4 months time 2. Continue follow-up with Dr. Abarca and Dr. Walton cc: Dr. Wheat, Dr. Abarca, Sr. Walton
== END | disposition home or self-care (01) ==
LOC: WWCWWP 12:34
PROVIDERS: ATTEND Surgery
DX: Z53.9 Procedure and treatment not carried out, unspecified reason (principal)

== ENCOUNTER → 2018-01-01 | Outpatient (CLI) | payer MEDICARE, BC ==
--- NOTE | 2018-01-03 12:39 | MR ---
EXAMINATION TYPE: MR lumbar spine wo/w con DATE OF EXAM: 01/01/2018 4:13 PM COMPARISON: 05/09/2014 HISTORY: Low back pain, Rt leg pain CONTRAST: The patient was injected with 10 mL intravenous Gadavist gadolinium contrast. Multiplanar, MultiSpin echo imaging of the lumbar spine was performed. L1-L2: Moderate to severe compression fracture of the L1 vertebral segment is a new findings. Loss of vertebral body height is estimated at greater than 75%. There is focal enhancement noted and this do es raise the possibility of metastatic disease. There is bony retropulsion identified measuring 7.6 m m. No evidence for central stenosis or cord contact. L2-L3: Normal disc appearance without desiccation. No herniation, protrusion or disc bulging. No ca nal stenosis is present. Foramina are patent bilaterally. L3-L4: Mild Disc desiccation. Mild posterior disc bulge. No herniation protrusion or central stenosis mild bilateral foraminal encroachment resulting in moderate to bilateral facet joint arthropathy. L4-L5: Moderate disc desiccation. Posterior disc bulge with mild effacement ventral thecal sac. No he rniation of protrusion or central stenosis. Right greater than left foraminal encroachment. Facet angelika nt arthropathy. L5-S1: Moderate to severe disc desiccation. Posterior disc bulge with mild effacement ventral thecal sac. No herniation of protrusion or central stenosis. Right greater than left foraminal encroachment. Facet joint arthropathy. No paraspinal masses are identified. Conus medullaris has a normal appearance. IMPRESSION: 1. New compression fracture of the L1 vertebral segment with findings suspicious for pathologic compo nent. Bony retropulsion. See above. 2 degenerative disc disease with disc bulging. See above.
== END ==
LOC: RADMRIMAIN 14:44
PROVIDERS: ATTEND Physical Medicine & Rehabilitation
DX: M51.26 Other intervertebral disc displacement, lumbar region (principal); M51.36 Other intervertebral disc degeneration, lumbar region; M46.97 Unspecified inflammatory spondylopathy, lumbosacral region; M48.56XA Collapsed vertebra, not elsewhere classified, lumbar region, initial encounter for fracture
CPT/HCPCS: 82565; 72158; 36415; A9585

== ENCOUNTER → 2018-03-04 | Outpatient (CLI) | payer MEDICARE, BC ==
[2018-03-04 10:07] VITALS: BP 128/80; PULSE 94; RESP 20; TEMP 98.7; BMI 31.6
--- NOTE | 2018-03-04 10:37 | P.PN ---
Subjective Progress Note Date: 03/04/18 Principal diagnosis: Status post bilateral mastectomies Dwayne is a 67-year-old gentleman who is status post bilateral mastectomies. The most recent was a left mastectomy in June 2017. His sentinel node was negative and margins were negative for cancer. He postprocedure had some concern regarding some redundant tissue and FNA was performed. The specimen was acellular at that time but with no evidence of any atypia or cancer cells. The patient since last seen has been hospitalized by DR. Dave regarding a fractured back. He was in a long term for rehab but is now at home. He had a biopsy of an area of the back which was negative for cancer, however it is recommended a PET scan be done. He also had bilateral cataract surgery. He does not complain about chest wall. He is status post closed head injury in July 1989. Past Surgical history: 1. tonsil/adenoids 2. appy 3. ulnar nerve 4. right leg 5. total knee replacement 6. bilateral cataract 7. lung: thorocentesis 8. bilateral mastectomy, first about 2015 most recent 2017 9. back surgery 10. bilateral cataract Medical History: 1. COPD/emphyseam 2. chronic costipation 3. sleep apnea 4. MRSA history ROS: HEENT: cataract surgery lungs: COPD heart: negative GI: constipation : negative Musculoskeletal: Back pain, wheel chair history of breast cancer bilateral Social History; smoke: 2 PPD alcohol: occasional drugs: none, used marijuana in the past Objective - Vital Signs Vital signs: Vital Signs Temp 98.7 F 03/04/18 09:44 Pulse 94 03/04/18 09:44 Resp 20 03/04/18 09:44 BP 128/80 03/04/18 09:44 Pulse Ox 95 03/04/18 09:44 Intake & Output 03/03/18 03/04/18 03/04/18 18:59 06:59 18:59 Weight 108.862 kg - Exam BMI 31.7 - Constitutional General appearance: Present: average body habitus, cooperative - EENT Eyes: Present: EOMI ENT: Present: hearing grossly normal - Neck Neck: Present: normal ROM - Respiratory Respiratory: bilateral: CTA - Cardiovascular Rhythm: regular Heart sounds: normal: S1, S2 - Gastrointestinal General gastrointestinal: Present: soft - Integumentary Integumentary Comment(s): chest wall: right chest no evidence of recurrence right axilla: no adenopathy of concern left chest wall: Vision is clean and dry no evidence of recurrence, mild firmness remains at the lateral aspect of the incision which has been sampled with an FNA. The FNA was nondiagnostic at that time however clinical suspicion was low and is even lower at this time for any recurrence. Integumentary: Present: normal turgor - Musculoskeletal Musculoskeletal Comment(s): wheel chair dependant - Psychiatric Psychiatric: Present: A&O x's 3, appropriate affect Assessment and Plan Assessment: Impression: 1. Bilateral breast cancer 2. COPD 3. back pain 4. status post closed head injury 1989 5. chronic constipation Plan: 1. PET scan 2. medical managment of medical conditions 3. follow up with DR. Abarca, and here after PET scan CC: DR. Abarca, Dr. Wheat
== END | disposition home or self-care (01) ==
LOC: WWCWWP 09:22
PROVIDERS: ATTEND Surgery
DX: Z53.9 Procedure and treatment not carried out, unspecified reason (principal)

== ENCOUNTER → 2018-06-03 | Outpatient (CLI) | payer MEDICARE, BC ==
[2018-06-03 16:08] LABS: HCT 43.5 % (39.0-53.0); HGB 14.1 gm/dL (13.0-17.5); MCH 30.1 pg (25.0-35.0); MCHC 32.5 g/dL (31.0-37.0); MCV 92.7 fL (80.0-100.0); Mean Platelet Volume 7.5; Platelet Count 207 k/uL (150-450); RBC 4.69 m/uL (4.30-5.90); RDW 13.4 % (11.5-15.5); WBC 6.8 k/uL (3.8-10.6)
[2018-06-03 16:13] LABS: Appearance,Urine Clear (Clear); Bilirubin,Urine Negative (Negative); Blood,Urine Small (Negative); Color,Urine Yellow; Glucose,Urine (UA) Negative (Negative); Ketones,Urine Negative (Negative); Leukocyte Esterase,Urine Small (Negative); Mucus,Urine Rare /hpf; Nitrite,Urine Negative (Negative); PH, Urine 6.5 (5.0-8.0); Protein,Urine Negative (Negative); RBC,Urine 48 /hpf (0-5); Specific Gravity,Urine 1.021 (1.001-1.035); Squamous Epithelial Cell,Urine 1 /hpf (0-4); WBC,Urine 2 /hpf (0-5)
[2018-06-03 16:17] LABS: INR 0.9 (<1.2); Partial Thromboplastin Time 24.2 sec (22.0-30.0); Prothrombin Time 10.1 sec (9.0-12.0)
[2018-06-03 16:18] LABS: Anion Gap 7 mmol/L; Blood Urea Nitrogen 18 mg/dL (9-20); Carbon Dioxide 26 mmol/L (22-30); Chloride 109 mmol/L (98-107); Potassium 4.2 mmol/L (3.5-5.1); Sodium 142 mmol/L (137-145)
== END ==
LOC: LABPAT 15:04
PROVIDERS: ATTEND Orthopaedic Surgery
DX: Z01.812 Encounter for preprocedural laboratory examination (principal)
CPT/HCPCS: 36415; 80051; 81001; 82565; 84520; 85027; 85610; 85730; 87070

== ENCOUNTER → 2018-07-30 | Outpatient (CLI) | payer MEDICARE, BC ==
[2018-07-30 13:10] LABS: Blood Urea Nitrogen 15 mg/dL (9-20)
--- NOTE | 2018-07-30 15:20 | CT ---
EXAMINATION TYPE: CT ChestAbdPelvis w con DATE OF EXAM: 07/30/2018 COMPARISON: Prior CT 01/13/2018 HISTORY: Breast cancer, observe for METS CT DLP: 3065.1 mGycm Automated exposure control for dose reduction was used. CONTRAST: CT scan of the chest, abdomen and pelvis is performed with Oral Contrast and with IV Contrast, patien t injected with 100 mL of Isovue 300. FINDINGS: The probable breast reconstruction on the right is again noted. Artifact may limit sensitiv ity of the exam. LUNGS: The left lower lobe mass was previously identified is cavitary now shows less luminal air and overall measures approximately 3.4 cm as opposed to previous exam when it measured 3 cm. Areas of sca rring and pleural thickening again noted within the left lung base. Scarring and interstitial bands a lso noted at the right lung base. Interlobular septal pleural thickening is present greater on the ri ght. Some emphysematous change present at the right upper lobe with possible post radiation changes a nd scarring also present. There is no pleural effusion or pneumothorax seen. The tracheobronchial tr ee is patent. MEDIASTINUM: There are no greater than 1 cm hilar or mediastinal lymph nodes. No pericardial effusi on is seen. AORTA: No significant abnormality is seen. OTHER: No additional significant abnormality is seen. LIVER/GB: No significant abnormality is appreciated. PANCREAS: No significant abnormality is seen. SPLEEN: No significant abnormality is seen. ADRENALS: No significant abnormality is seen. KIDNEYS: No significant abnormality is seen. REPRODUCTIVE ORGANS: No gross abnormality seen. BOWEL: No significant interval change is seen. Colonic interposition present anterior to the liver. FREE AIR: No Free Air visible. ASCITES: None seen. RETROPERITONEAL ADENOPATHY: No retroperitoneal adenopathy is seen. LYMPH NODES: No greater than 1 cm abdominal or pelvic lymph nodes are appreciated. URINARY BLADDER: No significant abnormality is seen. PELVIC ADENOPATHY: None visualized. OSSEOUS STRUCTURES: No significant interval change is seen, interval vertebral plasty present at L1. IMPRESSION: Slight interval growth of patient's left lower lobe lung mass. Intervertebral vertebral p lasty
== END ==
LOC: RADCTMAIN 12:31
PROVIDERS: ATTEND Internal Medicine Hematology & Oncology
DX: C50.122 Malignant neoplasm of central portion of left male breast (principal); R91.8 Other nonspecific abnormal finding of lung field; Z88.2 Allergy status to sulfonamides; Z96.698 Presence of other orthopedic joint implants
CPT/HCPCS: 82565; 84520; 71260; 74177; 36415; Q9967

== ENCOUNTER → 2018-08-06 | Outpatient (CLI) | payer OTHER, MEDICARE, BC ==
[2018-08-06 17:22] LABS: HCT 44.4 % (39.0-53.0); HGB 14.9 gm/dL (13.0-17.5); MCH 30.8 pg (25.0-35.0); MCHC 33.7 g/dL (31.0-37.0); MCV 91.4 fL (80.0-100.0); Mean Platelet Volume 7.9; Platelet Count 181 k/uL (150-450); RBC 4.85 m/uL (4.30-5.90); RDW 15.8 % (11.5-15.5); WBC 7.4 k/uL (3.8-10.6)
[2018-08-06 17:27] LABS: Appearance,Urine Clear (Clear); Bilirubin,Urine Negative (Negative); Blood,Urine Small (Negative); Color,Urine Yellow; Glucose,Urine (UA) Negative (Negative); Ketones,Urine Negative (Negative); Leukocyte Esterase,Urine Negative (Negative); Mucus,Urine Rare /hpf; Nitrite,Urine Negative (Negative); Protein,Urine Negative (Negative); RBC,Urine 40 /hpf (0-5); Specific Gravity,Urine 1.023 (1.001-1.035); Squamous Epithelial Cell,Urine <1 /hpf (0-4); Urobilinogen,Urine <2.0 mg/dL (<2.0); WBC,Urine 3 /hpf (0-5)
[2018-08-06 17:30] LABS: INR 0.9 (<1.2); Partial Thromboplastin Time 24.5 sec (22.0-30.0); Prothrombin Time 10.2 sec (9.0-12.0)
[2018-08-06 17:41] LABS: ALT 22 U/L (21-72); AST 23 U/L (17-59); African American GFR (CKD) >90 (>60 ml/min/1.73 sqM); Albumin 3.8 g/dL (3.5-5.0); Alkaline Phosphatase 103 U/L (38-126); Anion Gap 7 mmol/L; Blood Urea Nitrogen 18 mg/dL (9-20); Calcium 9.4 mg/dL (8.4-10.2); Carbon Dioxide 27 mmol/L (22-30); Chloride 109 mmol/L (98-107); Glucose 100 mg/dL (74-99); Potassium 4.3 mmol/L (3.5-5.1); Sodium 143 mmol/L (137-145); Total Protein 6.7 g/dL (6.3-8.2)
== END | disposition home or self-care (01) ==
LOC: LABPAT 16:33
PROVIDERS: ATTEND Orthopaedic Surgery
DX: Z01.818 Encounter for other preprocedural examination (principal); Z01.812 Encounter for preprocedural laboratory examination
CPT/HCPCS: 80053; 81001; 85027; 85610; 85730; 87070; 93005

== ENCOUNTER 2018-08-17 10:38 | Inpatient (IN) | payer OTHER, MEDICARE, BC ==
[2018-08-09 10:49] VITALS: BMI 35.4
[~2018-08-17 10:38] MED LIST changes: +ACETAMINOPHEN TAB 500 MG TAB PO ONE; -ALBUTEROL NEB (CONC) 2.5 MG/0.5 ML INHALATION ONE; -ATROPINE SULFATE 0.4 MG/ML 1 ML VIAL IM ONE; +DEXAMETHASONE SOD PHOSPHATE 10 MG/ML 1 ML VIAL IV ONE; +HYDROmorphone 0.5 MG/0.5 ML SYRINGE IVP PRN; -LACTATED RINGERS 1,000 ML IV SCH; -LIDOCAINE 2% (PF) 20 MG/ML 2 ML AMP INHALATION ONE; -LIDOCAINE VISCOUS 300 MG/15 ML CUP MUCOUS MEM ONE; +MELOXICAM 7.5 MG TAB PO ONE; +MIDAZOLAM 2 MG/2 ML VIAL IV PRN; +ONDANSETRON 4 MG/2 ML VIAL IVP ONE; +ROPIVACAINE 246.25 MG, EPINEPHrine 0.5 MG, KETOROLAC 30 MG, cloNIDine HCL/PF 80 MCG, WA... MISCELLANE ONE; +SCOPOLAMINE 1.5MG/72HR PATCH TRANSDERM ONE; +TRANEXAMIC ACID 1,000 MG in SODIUM CHLORIDE 0.9% 100 ML IVPB ONE; +VANCOMYCIN 1,750 MG in SODIUM CHLORIDE 0.9% 500 ML 500 ML IVPB ONE
[2018-08-17] MEDS: LACTATED RINGERS 1,000 ML IV SCH (11:43)
--- NOTE | 2018-08-17 12:09 | P.ANPRN ---
Procedure Note - Anesthesia - Nerve Block Performed Right Adductor Canal Infusion Time Out Performed: Yes Date of Procedure: 08/17/18 Procedure Start Time: 11:52 Procedure Stop Time: 12:00 Location of Patient Procedure: PreOp Indication: Acute Post-Operative Pain, Dx/Pain Location (Right Knee Pain), Requested by physician Sedation Type: Sedate with meaningful contact maintained Preparation: Sterile Prep Position: Supine Catheter: Indwelling Needle Types: Pajunk Needle Gauge: 18 Technique: Ultrasound Injectate: 0.5% Ropivacaine (see comment for volume) (20ml) Blood Aspirated: No Pain Paresthesia on Injection Noted: No Resistance on Injection: Normal Events: Uneventful and Well Tolerated
[2018-08-17] MEDS ORDERED: ROPIVACAINE 1,100 MG, SODIUM CHLORIDE 0.9% 500 ML 330 ML MISCELLANE PRN ×2 (12:11)
[2018-08-17] MEDS ORDERED: ePHEDrine SULFATE/0.9% NACL/PF 50 MG/5 ML SYRINGE IV ONE (12:45)
[2018-08-17] MEDS ORDERED: LIDOCAINE 1% INJ 10MG/ML (20 ML MDV) ONE (12:45)
[2018-08-17] MEDS ORDERED: TRANEXAMIC ACID 1,000 MG/10 ML VIAL ONE (12:45)
[2018-08-17] MEDS ORDERED: PROPOFOL 10 MG/ML 20 ML VIAL IV ONE (12:45)
[2018-08-17] MEDS ORDERED: SODIUM CHLORIDE 0.9% 100 ML BAG ONE (12:45)
[2018-08-17] MEDS ORDERED: ceFAZolin 3,000 MG in SODIUM CHLORIDE 0.9% IRRIGATIO 3,000 ML IRRIGATION ONE (13:18)
[2018-08-17] MEDS ORDERED: DIAZEPAM 5 MG TAB PO PRN (14:06)
[2018-08-17] MEDS ORDERED: MAGNESIUM HYDROXIDE 2,400 MG/10 ML CUP PO PRN (14:06)
[2018-08-17] MEDS ORDERED: HYDROcodone/APAP 5-325MG 1 EACH TAB PO PRN ×2 (14:06)
[2018-08-17] MEDS ORDERED: VANCOMYCIN IVPB ONE (14:06)
[2018-08-17] MEDS ORDERED: ONDANSETRON 4 MG/2 ML VIAL IVP PRN (14:06)
[2018-08-17] MEDS ORDERED: hydrOXYzine PAMOATE 25 MG CAP PO PRN (14:06)
[2018-08-17] MEDS ORDERED: BISACODYL 10 MG SUPP RECTAL PRN (14:06)
[2018-08-17] MEDS ORDERED: SODIUM CHLORIDE 0.9% IVPB ONE (14:06)
[2018-08-17] MEDS ORDERED: HYDROmorphone 0.5 MG/0.5 ML SYRINGE IVP PRN ×3 (14:06)
[2018-08-17] MEDS ORDERED: NALOXONE 0.4 MG/ML 1 ML VIAL IV PRN (14:06)
[2018-08-17] MEDS ORDERED: NA PHOS,M-B/NA PHOS,DI-BA 133 ML ENEMA RECTAL PRN (14:06)
--- NOTE | 2018-08-17 14:32 | P.OP ---
Date of Procedure: 08/17/18 Preoperative Diagnosis: Severe osteoarthritis right knee Postoperative Diagnosis: Severe osteoarthritis right knee Procedure(s) Performed: Right total knee arthroplasty Implants: Otoole [employer] Nephew Journey II CR Oxinium bi-cruciate stabilized femoral component size 8, right O[employer]ole [employer] Journey right nonporous tibial baseplate size 8 O[employer]ole [employer] Journey II, XLPE constrained articular insert, size 9 mm, Size 7- 8 right [employer] Journey BCS resurfacing oval patellar component, 38 mm All components were cemented using Palacos R bone cement.. The articulation is Oxinium on polyethylene. Anesthesia: spinal Surgeon: Carter Nova [employer] Plasma Etcher #1: Keisha Nguyen Estimated Blood Loss (ml): 100 Pathology: other (Bone and cartilage) Condition: stable Disposition: PACU Indications for Procedure: After failure of conservative treatment we discussed the surgical and nonsurgical treatment options at length. Patient wishes to proceed with a total knee arthroplasty. Complications specific to this procedure were discussed at length, including but not limited to infection, bleeding, stiffness, and nerve injury. Patient is aware of all these complications and informed consent was obtained Operative Findings: The operative findings are consistent with severe osteoarthritis of the right knee Description of Procedure: Patient was seen in the preoperative area consent was reviewed and operative site was marked with a skin marker. An adductor canal pain catheter was placed by anesthesia in the preoperative area. Patient was then brought to the o perating room and given preoperative antibiotics intravenously. A spinal anesthetic was administered by the anesthesia department. A tourniquet was placed on the upper thigh and the lower extremity was prepped and draped in usual sterile fashion. A gram of transexamic acid was given. A universal timeout was then performed which confirmed the patient's name, surgical site, ALLERGIES, and consent. The lower extremity was then exsanguinated and tourniquet was inflated to 250 mmHg. A standard and anterior midline approach to the knee was performed. The skin and subcutaneous tissue was dissected down to the patellar tendon. A medial parapatellar arthrotomy was then performed. The knee was then extended, the patellar was everted, and the knee was again flexed. Anterior horns of both menisci were excised, and a release was performed to the posterior medial aspect of the knee. On gross visual inspection, there was complete loss of articular cartilage in the medial and patellofemoral joint spaces. There was also significant cartilage damage in the lateral compartment. There were multiple periarticular osteophytes which were then removed with a Ronguer. There was a large calcification on the medial aspect of the knee which was removed with a osteotome and a Rominger. The femoral canal was then opened with the appropriate drill, and the intramedullary femoral cutting guide was then placed and set for 5 of valgus. The distal femoral cutting block was then pinned in place, and the distal femur was then cut. The cutting block was then removed and the cut was checked for flatness. Next, the sizing guide was then placed and set for 3 external rotation based off of the epicondylar axis and Whitesides line. After the femur was sized, the appropriate 4-in-1 cutting blo ck was then pinned in place. The anterior condyles were cut without notching. The posterior and chamfer cuts were performed while protecting the collateral ligaments. The cutting block was then removed, and the femoral canal was plugged with autologous bone. Attention was then directed to the tibia. The remaining ACL was removed with a Ronguer, and the tibia was then gently subluxed forward with a large bent knee retractor. Any remaining menisci was excised. The posterior lateral corner was cauterized in order to cauterize the lateral geniculate artery. The extra medullary tibial cutting guide was then placed, set for the appropriate rotation, slope, and depth of resection. The proximal tibia cutting guide was then pinned in place. Proximal tibia was then cut and sized. The femoral trial was then placed, and the box was then prepared with the reamer and the osteotome. Next trials were then placed with the appropriate-sized insert. The knee was able to fully extend and flex to 130 and was stable throughout all range of motion. The knee was then extended, patella everted. Patella was then measured, and then using an osteotomy guide, the patella was cut at the appropri ate level. The patella was then measured and drilled and the patella trial was then placed. The knee was then taken through range of motion with the patella trial and the patella tracked normally. The knee was then extended patella trial was then removed and the patella was everted. Knee was then flexed and lug holes were drilled through the femoral trial and the femoral trial was then removed. The tibial was then exposed, and the tibial broach guide was then pinned in place after it was set for the appropriate rotation to allow for the most coverage without overhang. The tibia was then reamed and broached. The cut surfaces of bone were then irrigated with pulsatile lavage. The posterior structures were injected with the ropivacaine solution. The knee was also irrigated with Irrisept solution. The components were then opened, the cement was mixed, and the components were then cemented in place. The cement was allowed to harden with the knee in full extension. While the cement was hardening, the remaining soft tissues were then injected with a ropivacaine solution, which consisted of 246.25 mg of ropivacaine, 0.5 mg of epinephrine, 30 mg of Toradol, 80 g of clonidine, and 48.45 mL of sterile water, for a total of 100 mL of fluid injected. After the cemented hardened. The tourniquet was released, and hemostasis was obtained. A second gram of transexamic acid was gi thea. The knee was again irrigated. The knee was again taken through range of motion and found to be stable throughout all range of motion of 0-130, and the patella tracked normally. The fascia was then closed with #2 strata fix suture. The subcutaneous tissue was closed with 3-0 Vicryl and 3-0 strata fix. Dermabond glue was used for the skin and placed with the knee in flexion. The patient was placed in a sterile silver dressing. Patient was then transferred to recovery room in stable condition. The legal document assistant LALA Arreaga was required due the complexity surgery and the need for a skilled training assistant. She assisted in positioning, draping, retraction, and closure of the wound.
[2018-08-17] MEDS ORDERED: LACTATED RINGERS 1,000 ML IV ONE (14:56)
--- NOTE | 2018-08-17 15:28 | XR ---
EXAMINATION TYPE: XR knee limited RT DATE OF EXAM: 08/17/2018 CLINICAL HISTORY: Right knee pain and arthritis status post total knee replacement. TECHNIQUE: Portable AP and crosstable lateral views of the right knee are obtained immediately posto peratively. COMPARISON: None FINDINGS: Metallic hardware from total right knee arthroplasty is seen and appears satisfactory in a lignment and position. There is evidence of recent surgery with diffuse subcutaneous gas and soft ti ssue swelling noted. IMPRESSION: METALLIC HARDWARE FROM TOTAL RIGHT KNEE ARTHROPLASTY IS SATISFACTORY IN ALIGNMENT.
[2018-08-17] MEDS: SODIUM CHLORIDE 0.9% 1,000 ML IV SCH (16:02)
[2018-08-17] MEDS: SENNOSIDES-DOCUSATE SODIUM 1 EACH TAB PO SCH (21:49)
[2018-08-17] MEDS: ASPIRIN 325 MG TAB PO SCH (21:49)
[2018-08-18] MEDS ORDERED: VANCOMYCIN 1,750 MG in SODIUM CHLORIDE 0.9% 500 ML 500 ML IVPB ONE ×2
[2018-08-18] MEDS ORDERED: HYDROcodone/APAP 5-325MG 1 EACH TAB ONE (00:17)
[2018-08-18] MEDS: LACTATED RINGERS 1,000 ML IV SCH (05:24)
[2018-08-18] MEDS: SODIUM CHLORIDE 0.9% 1,000 ML IV SCH ×2 (05:26→20:26)
[2018-08-18] MEDS ORDERED: MELOXICAM 7.5 MG TAB PO SCH (09:00)
[2018-08-18 09:08] LABS: Basophils % (A) 0 %; Eosinophils % (A) 0 %; HCT 41.5 % (39.0-53.0); HGB 13.1 gm/dL (13.0-17.5); Lymphocytes # (A) 0.6 k/uL (1.0-4.8); Lymphocytes % (A) 5 %; MCH 29.2 pg (25.0-35.0); MCHC 31.6 g/dL (31.0-37.0); MCV 92.3 fL (80.0-100.0); Mean Platelet Volume 7.5; Monocytes # (A) 1.1 k/uL (0-1.0); Monocytes % (A) 8 %; Neutrophils # (A) 11.6 k/uL (1.3-7.7); Neutrophils % (A) 86 %; Platelet Count 215 k/uL (150-450); RBC 4.49 m/uL (4.30-5.90); RDW 13.6 % (11.5-15.5); WBC 13.5 k/uL (3.8-10.6)
--- NOTE | 2018-08-18 09:28 | P.PN ---
Subjective Progress Note Date: 08/18/18 This is a 68-year-old male who is status post right total knee arthroplasty. This is postoperative day #1 and patient is seen and evaluated at bedside with Dr. Carter Nova. Patient states that his pain is well controlled. Patient states he has noticed some bruising to the right knee. Patient denies any fever/chills, numbness, weakness, tingling, abdominal pain, shortness of breath or chest pain. Objective - Vital Signs Vital signs: Vital Signs Temp 97.9 F 08/18/18 07:40 Pulse 77 08/18/18 07:40 Resp 14 08/18/18 07:40 BP 118/67 08/18/18 07:40 Pulse Ox 95 08/18/18 07:40 Intake & Output 08/17/18 08/18/18 08/18/18 18:59 06:59 18:59 Intake Total 1681 890 Output Total 100 Balance 1581 890 Intake: IV 1501 Intake, IV Titration 890 Amount Sodium Chloride 0.9% 1, 390 000 ml @ 65 mls/hr IV . [id number] [facility] Rx#:[id number] Vancomycin 1,750 mg In 500 Sodium Chloride 0.9% 500 ml 500 ml @ 167 mls/hr IVPB ONCE ONE Rx#: [id number] Oral 180 Output: Estimated Blood Loss 100 Other: # Voids 3 - Exam Vital signs are stable. Patient is in no acute distress and is alert and oriented 3. Calf is soft and nontender to palpation. Dressing is clean, dry, and intact. There is mild ecchymosis of the right knee. There is mild to moderate swelling of the right knee. Patient has full foot and ankle motion without pain or difficulty. Neurovascular status and circulatory status are intact. - Labs CBC & Chem 7: 08/18/18 08:00 Labs: Abnormal Lab Results - Last 24 Hours (Table) 08/18/18 Range/Units 08:00 WBC 13.5 H (3.8-10.6) k/uL Neutrophils # 11.6 H (1.3-7.7) k/uL Lymphocytes # 0.6 L (1.0-4.8) k/uL Monocytes # 1.1 H (0-1.0) k/uL Assessment and Plan (1) Osteoarthritis of right knee Current Visit: Yes Status: Acute Code(s): M17.11 - UNILATERAL PRIMARY OSTEOARTHRITIS, RIGHT KNEE SNOMED Code(s): 340296515118669 (2) Status post total right knee replacement Current Visit: Yes Status: Acute Code(s): Z96.651 - PRESENCE OF RIGHT ARTIFICIAL KNEE JOINT SNOMED Code(s): 0892981650330 Plan: #1 Continue with routine postoperative care and pain control, leave dressing in place for ten days. #2 Anticoagulation with aspirin. #3 Physical therapy and CPM today. #4 Appreciate input from medicine. #5 Anticipate discharge to [facility] in the next 24-48 hours.
[2018-08-18] MEDS: ASPIRIN 325 MG TAB PO SCH ×2 (09:37→20:23)
[2018-08-18] MEDS ORDERED: HYDROcodone/APAP 7.5-325MG 1 EACH TAB PO PRN (12:13)
--- NOTE | 2018-08-18 12:13 | P.PN ---
Progress Note - Text Progress Note Date: 08/18/18 Postoperative day # 1 status post total knee arthroplasty, under spinal anesthesia, and adductor canal catheter placed for postoperative analgesia, currently at ropivacaine 0.2% 8 mL per hour and continuous infusion, patient using oral pain medication for breakthrough pain. Assessment and plan= Acute postoperative pain, adductor canal catheter for pain control, pain is well controlled we'll continue the same management.
[2018-08-18] MEDS: HYDROcodone/APAP 7.5-325MG 1 EACH TAB PO PRN ×2 (12:28→21:03)
[2018-08-18] MEDS ORDERED: IPRATROPIUM-ALBUTEROL 3 ML NEB INHALATION PRN (13:46)
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
[2018-08-18] MEDS: IPRATROPIUM-ALBUTEROL 3 ML NEB INHALATION SCH ×2 (16:14→19:55)
[2018-08-18] MEDS ORDERED: IBUPROFEN 400 MG TAB PO PRN (16:47)
[2018-08-18] MEDS: IBUPROFEN 600 MG TAB PO PRN (18:04)
[2018-08-18] MEDS: SENNOSIDES-DOCUSATE SODIUM 1 EACH TAB PO SCH (20:23)
[2018-08-19] MEDS: LACTATED RINGERS 1,000 ML IV SCH (01:10)
[2018-08-19] MEDS: IBUPROFEN 600 MG TAB PO PRN ×3 (02:57→20:48)
[2018-08-19] MEDS: HYDROcodone/APAP 7.5-325MG 1 EACH TAB PO PRN ×3 (04:34→19:21)
[2018-08-19] MEDS: ASPIRIN 325 MG TAB PO SCH ×2 (07:13→19:59)
[2018-08-19] MEDS: FAMOTIDINE 20 MG TAB PO SCH (07:14)
--- NOTE | 2018-08-19 08:10 | P.DS ---
Providers Date of admission: 08/17/18 10:38 Attending physician: Carter Nova Consults: 08/17/18 14:06 Consult Physician Routine Consulting Provider: Clint Wheat Consult Reason/Comments: medical management Do you want consulting provider notified?: Yes Primary care physician: Clint Wheat - Discharge Diagnosis(es) (1) Osteoarthritis of right knee Current Visit: Yes Status: Acute (2) Status post total right knee replacement Current Visit: Yes Status: Acute Hospital Course: This is a 68-year-old male with known history of degenerative arthritis of the right knee. The patient presents for evaluation. After discussion and consideration patient elects to proceed with total knee arthroplasty. The patient is seen preoperatively by Dr. Nova and medically cleared for surgery by their primary care physician. Patient is admitted to [facility] on 08/17/2018 for total knee arthroplasty. The procedures performed without complication or sequelae. The patient is doing well postoperatively. Labs and vital signs are stable on day of discharge. On day of discharge patient's knee incision is healing well. There is minimal erythema. There is no drainage noted at this time. There is minimal soft tissue swelling to the knee. Patient has full foot and ankle motion without difficulty or pain. Calf is soft and nontender to palpation. Neurovascular status to the right lower extremity is intact. Patient is discharged to rehab in good condition. Opioid start talking form is reviewed and signed at patient bedside. Please see med rec for accurate list of home medications. Plan - Discharge Summary Discharge Rx Participant: No New Discharge Prescriptions: New Aspirin 325 mg PO BID #60 tab Sennosides [Senokot] 1 tab PO BID #60 tablet HYDROcodone/APAP 7.5-325MG [[place] 7.5-325] 1 - 2 tab PO Q6H PRN #56 tab PRN Reason: Pain Ibuprofen [Motrin] 400 mg PO Q6HR PRN #90 tab PRN Reason: Pain No Action Exemestane [Aromasin] 25 mg PO DAILY Albuterol Nebulized [Ventolin Nebulized] 2.5 mg INHALATION QID PRN PRN Reason: sob Aspirin EC [Ecotrin Low Dose] 81 mg PO DAILY Ibuprofen [Motrin] 800 mg PO TID PRN PRN Reason: Pain Acetaminophen Tab [Tylenol] 500 mg PO Q6HR PRN tab PRN Reason: Fever And/ Or Pain Pantoprazole [Protonix] 40 mg PO AC-BRKFST tablet. Magnesium Hydroxide [Milk of Magnesia] 30 ml PO DAILY PRN PRN Reason: CONSTIPATION HYDROcodone/APAP 5-325MG [[place] 5-325] 1 tab PO Q6HR PRN PRN Reason: Pain Sennosides-Docusate Sodium [Senokot-S] 2 tab PO HS Discharge Medication List Albuterol Nebulized [Ventolin Nebulized] 2.5 mg INHALATION QID PRN 01/13/18 [History] Exemestane [Aromasin] 25 mg PO DAILY 01/13/18 [History] Aspirin EC [Ecotrin Low Dose] 81 mg PO DAILY 03/13/18 [History] Ibuprofen [Motrin] 800 mg PO TID PRN 03/13/18 [History] Acetaminophen Tab [Tylenol] 500 mg PO Q6HR PRN tab 03/17/18 [Rx] Pantoprazole [Protonix] 40 mg PO AC-BRKFST tablet. 03/17/18 [Rx] Magnesium Hydroxide [Milk of Magnesia] 30 ml PO DAILY PRN 06/02/18 [History] HYDROcodone/APAP 5-325MG [[place] 5-325] 1 tab PO Q6HR PRN 08/17/18 [History] Sennosides-Docusate Sodium [Senokot-S] 2 tab PO HS 08/17/18 [History] Aspirin 325 mg PO BID #60 tab 08/18/18 [Rx] Sennosides [Senokot] 1 tab PO BID #60 tablet 08/18/18 [Rx] HYDROcodone/APAP 7.5-325MG [[place] 7.5-325] 1 - 2 tab PO Q6H PRN #56 tab 08/19/18 [Rx] Ibuprofen [Motrin] 400 mg PO Q6HR PRN #90 tab 08/19/18 [Rx] Follow up Appointment(s)/Referral(s): Carter Nova DO [Doctor of Osteopathic Medicine] - 2 Weeks Ambulatory/Diagnostic Orders: Continuous Passive Motion (CPM) Machine [DME.AMB1] Time Frame: 3 Weeks, Location: None Selected Activity/Diet/Wound Care/Special Instructions: Weightbearing as tolerated with a walker. CPM 5-6h daily. Leave dressing intact. May be removed by home care nurse or by patient in 10 days. May shower with dressing on. Please follow up with [facility] and call with any questions or concerns, . Discharge Disposition: TRANSFER TO SNF/ECF
[2018-08-19] MEDS: IPRATROPIUM-ALBUTEROL 3 ML NEB INHALATION SCH ×4 (08:37→19:15)
--- NOTE | 2018-08-19 10:31 | P.PN ---
Progress Note - Text Progress Note Date: 08/19/18 Pt w/ c/o severe pain. Improved w/ breakthrough medications. Catheter site looks clean and dry. Adductor canal catheter @ 8 ml/hr. POD#2 s/p Adductor canal catheter for R TKA - may remove catheter - continue multimodal analgesia
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
[2018-08-19] MEDS: SODIUM CHLORIDE 0.9% 1,000 ML IV SCH ×2 (19:15→20:00)
[2018-08-19] MEDS: SENNOSIDES-DOCUSATE SODIUM 1 EACH TAB PO SCH (19:59)
[2018-08-20] MEDS: LACTATED RINGERS 1,000 ML IV SCH (03:40)
--- NOTE | 2018-08-20 06:43 | P.PN ---
Progress Note - Text Progress Note Date: 08/20/18 68 yo male s/p Right Total Knee Replacement POD#3. Adductor canal site clean, no redness. Adequate pain control. No complaints overnight.
[2018-08-20] MEDS: IPRATROPIUM-ALBUTEROL 3 ML NEB INHALATION SCH ×2 (07:23→11:01)
[2018-08-20 08:16] LABS: Basophils % (A) 0 %; Eosinophils # (A) 0.5 k/uL (0-0.7); Eosinophils % (A) 6 %; HCT 36.7 % (39.0-53.0); HGB 11.9 gm/dL (13.0-17.5); Lymphocytes # (A) 0.5 k/uL (1.0-4.8); Lymphocytes % (A) 6 %; MCH 30.1 pg (25.0-35.0); MCHC 32.4 g/dL (31.0-37.0); MCV 92.8 fL (80.0-100.0); Mean Platelet Volume 7.8; Monocytes # (A) 0.6 k/uL (0-1.0); Monocytes % (A) 7 %; Neutrophils # (A) 6.8 k/uL (1.3-7.7); Neutrophils % (A) 81 %; Platelet Count 172 k/uL (150-450); RBC 3.96 m/uL (4.30-5.90); RDW 14.7 % (11.5-15.5); WBC 8.4 k/uL (3.8-10.6)
[2018-08-20 08:44] VITALS: BP 100/59; RESP 15; TEMP 97.9
[2018-08-20] MEDS ORDERED: EXEMESTANE 25 MG PO SCH (11:00)
[2018-08-20 11:04] VITALS: PULSE 88
[2018-08-20] MEDS: FAMOTIDINE 20 MG TAB PO SCH (11:05)
[2018-08-20] MEDS: ASPIRIN 325 MG TAB PO SCH (11:05)
--- NOTE | 2018-08-20 12:15 | XR ---
EXAMINATION TYPE: XR pelvis AP view DATE OF EXAM: 08/20/2018 COMPARISON: 05/10/2016 HISTORY: 68-year-old male fall and pain, rule out fracture TECHNIQUE: Single portable AP view FINDINGS: Exam is limited due to portable technique with patient obliqued towards the left and right hip software build engineer ally rotated limiting visualization of the femoral neck. There is osteopenia and overlying panniculus . The left ischial tuberosity is also excluded from view. There may be focal angulation of a right sa cral alar arcuate line. [id number] degenerative change of the right hip and mild at the left hi p. . IMPRESSION: 1. Very limited, portable exam due to combination of overlying panniculus, positioning, and osteopeni a. Suboptimal assessment of the right femoral neck due to external rotation of the hip. Left ischial tuberosity is excluded from view. 2. Unable to exclude a right sacral alar insufficiency fracture.
[2018-08-20] MEDS: IBUPROFEN 600 MG TAB PO PRN (13:29)
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
== END 2018-08-20 15:07 | DRG 470 ==
LOC: 2ORMAIN 10:38 → 4SSUR 14:59
PROVIDERS: ADMIT Orthopaedic Surgery; ATTEND Orthopaedic Surgery
PROC: 0SRC069 Replacement of Right Knee Joint with Oxidized Zirconium on Polyethylene Synthetic Substitute, Cemented, Open Approach (ICD-10-PCS; principal; 2018-08-17 13:55)
DX: M17.11 Unilateral primary osteoarthritis, right knee (principal); G47.33 Obstructive sleep apnea (adult) (pediatric); J43.9 Emphysema, unspecified; K21.9 Gastro-esophageal reflux disease without esophagitis; W01.0XXA Fall on same level from slipping, tripping and stumbling without subsequent striking against object, initial encounter; Z79.811 Long term (current) use of aromatase inhibitors; Z79.82 Long term (current) use of aspirin; Z80.0 Family history of malignant neoplasm of digestive organs; Z85.3 Personal history of malignant neoplasm of breast; Z86.14 Personal history of Methicillin resistant Staphylococcus aureus infection; Z87.820 Personal history of traumatic brain injury; Z87.891 Personal history of nicotine dependence; Z90.13 Acquired absence of bilateral breasts and nipples; Z91.19 Patient's noncompliance with other medical treatment and regimen; Z92.21 Personal history of antineoplastic chemotherapy; Z92.3 Personal history of irradiation; Z98.42 Cataract extraction status, left eye; Z98.41 Cataract extraction status, right eye; Z96.1 Presence of intraocular lens; Z96.652 Presence of left artificial knee joint; Z79.891 Long term (current) use of opiate analgesic; Z79.899 Other long term (current) drug therapy; Z88.2 Allergy status to sulfonamides
CPT/HCPCS: 72170; 85025; 88305; 88311; 94640; 94760

== ENCOUNTER 2018-09-24 05:25 | Emergency (ER) | payer MEDICARE, BC, OTHER ==
[2018-09-24 05:37] VITALS: RESP 18; TEMP 98.4
[2018-09-24] MEDS ORDERED: LIDOCAINE 1% INJ 10MG/ML (20 ML MDV) SQ ONE (06:00)
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
[2018-09-24 06:31] VITALS: BP 105/73; PULSE 65
== END 2018-09-24 07:42 | disposition home or self-care (01) ==
LOC: EC 05:25
DX: S81.011A Laceration without foreign body, right knee, initial encounter (principal); J44.9 Chronic obstructive pulmonary disease, unspecified; G47.30 Sleep apnea, unspecified; Z79.899 Other long term (current) drug therapy; Z88.1 Allergy status to other antibiotic agents; Z88.2 Allergy status to sulfonamides; Z91.030 Bee allergy status; Z91.048 Other nonmedicinal substance allergy status; Z96.652 Presence of left artificial knee joint; Z90.13 Acquired absence of bilateral breasts and nipples
CPT/HCPCS: 99283; 12002; J2001

== ENCOUNTER 2018-10-08 15:23 | Emergency (ER) | payer MEDICARE, BC, OTHER ==
[2018-10-08 15:30] VITALS: RESP 18; TEMP 98
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
--- NOTE | 2018-10-08 16:49 | CT ---
EXAMINATION TYPE: CT hip RT wo con DATE OF EXAM: 10/08/2018 COMPARISON: CT of the chest, abdomen and pelvis from 07/30/2018 HISTORY: Right hip pain CT DLP: 942.4 mGycm Automated exposure control for dose reduction was used. FINDINGS: There is mild cortical buckling along the lateral femoral neck which appears similar when compared to CT dated 07/30/2018 and likely related to small degenerative osteophyte. No acute fracture or dislocat ion is identified. Moderate right hip joint space narrowing with marginal osteophytes at the superior and inferior acetabulum. Visualized portions of the abdomen and pelvis appear grossly unremarkable. There is mild buckling in the lateral cortex of the inferior pubic ramus which also appears stable wh en compared to 07/30/2018 and may related to old healed injury. Pubic symphysis appears intact. IMPRESSION: NO ACUTE FRACTURE OR DISLOCATION. MODERATE OSTEOARTHRITIS OF THE RIGHT HIP.
[2018-10-08] MEDS ORDERED: CEPHALEXIN 500MG STARTER PACK 4 CAP BTL PO STA (17:20)
[2018-10-08 17:46] VITALS: BP 138/84; PULSE 79
== END 2018-10-08 17:45 | disposition home or self-care (01) ==
LOC: EC 15:23
DX: M25.551 Pain in right hip (principal); M25.561 Pain in right knee; J44.9 Chronic obstructive pulmonary disease, unspecified; M19.90 Unspecified osteoarthritis, unspecified site; G47.30 Sleep apnea, unspecified; Z99.89 Dependence on other enabling machines and devices; Z85.3 Personal history of malignant neoplasm of breast; Z92.21 Personal history of antineoplastic chemotherapy; Z86.14 Personal history of Methicillin resistant Staphylococcus aureus infection; Z96.652 Presence of left artificial knee joint; Z87.891 Personal history of nicotine dependence; Z79.811 Long term (current) use of aromatase inhibitors; Z79.899 Other long term (current) drug therapy; Z91.038 Other insect allergy status; Z88.2 Allergy status to sulfonamides; Z91.030 Bee allergy status
CPT/HCPCS: 99284

== ENCOUNTER → 2018-10-15 | Outpatient (CLI) | payer OTHER, MEDICARE, BC ==
--- NOTE | 2018-10-15 14:33 | NM ---
EXAMINATION TYPE: NM bone scan whole body DATE OF EXAM: 10/15/2018 COMPARISON: NONE HISTORY: C 79.9 Delayed whole-body scanning was performed following the injection of 24.5 mCi Tc 99m MDP. Images wer e acquired 3 hours post injection. FINDINGS: There is increased uptake within the posterior right neck midportion. Degenerative change than metast atic disease could be considered. There is some patchy radiotracer within the mid to lower right ribs best visualized on the posterior projection could be related to some metastatic lesions. There is marked uptake about the bilateral knees compatible with recent prosthesis placement. Scoliosis is present. There is some diffuse uptake in the right foot likely related to degenerative c hange. Uptake at the bilateral shoulders likely related to degenerative change. IMPRESSION: 1. Plain film correlation is recommended for radiotracer accumulation in the posterior right mid cerv ical spine. This could be degenerative or metastatic lesion. 2. There is suspicious uptake which is patchy through the posterior right mid and lower ribs suspicio us for metastatic disease.
== END | disposition home or self-care (01) ==
LOC: RADNMMAIN 09:51
PROVIDERS: ATTEND Family Medicine
DX: C79.9 Secondary malignant neoplasm of unspecified site (principal)
CPT/HCPCS: 78306; A9503

== ENCOUNTER → 2018-10-21 | Outpatient (CLI) | payer MEDICARE, BC ==
--- NOTE | 2018-10-21 19:25 | US ---
EXAMINATION TYPE: US venous doppler duplex LE RT DATE OF EXAM: 10/21/2018 3:17 PM COMPARISON: NONE CLINICAL HISTORY: R22.41 Swelling Right Lower. Edema SIDE PERFORMED: Right TECHNIQUE: The lower extremity deep venous system is examined utilizing real time linear array sonog enoch with graded compression, doppler sonography and color-flow sonography. VESSELS IMAGED: External Iliac Vein (EIV) Common Femoral Vein Deep Femoral Vein Greater Saphenous Vein * Femoral Vein Popliteal Vein Small Saphenous Vein * Proximal Calf Veins (* superficial vessels) Right Leg: Negative for DVT IMPRESSION: No evidence of deep venous thrombosis in the right leg.
== END | disposition home or self-care (01) ==
LOC: RADUSWWP 14:29
PROVIDERS: ATTEND Internal Medicine Hematology & Oncology
DX: R22.41 Localized swelling, mass and lump, right lower limb (principal)

== ENCOUNTER → 2018-10-23 | Outpatient (CLI) | payer MEDICARE, BC ==
--- NOTE | 2018-10-25 12:04 | PE ---
EXAMINATION TYPE: PET CT fusion skull to thigh DATE OF EXAM: 10/23/2018 COMPARISON: PET/CT dated 05/09/[address] chest abdomen pelvis dated 07/30/2018. Comparison is also mad e to chest CT dated 11/24/[address] of the chest abdomen pelvis dated 01/13/2018. HISTORY: Personal history of left breast cancer. TECHNIQUE: Following the intravenous administration of 12.22 mCi of F-18 FDG, whole body images are performed from the skull base to the midthigh. Images are reviewed on the computer in the coronal, a xial, and sagittal planes. Reconstructed rotating images are created on independent workstation and reviewed on the computer. A localization and attenuation correction CT is performed in conjunction with the PET scan. SCAN: Subsequent treatment strategy FINDINGS: Mediastinal background: 2.27 Abdominal background: 3.56 SKULL BASE AND NECK: Uptake of the paraspinal musculature appears to represent either muscular usage during the examination, also typical location for brown fat that is a benign finding. CHEST, MEDIASTINUM, AND HILAR REGION: Left mastectomy has been performed with right sided implant/tis tiffany spacer again noted. Along the right rotator cuff insertion may relate to tendinosis. Surgical sutures are seen of the medial right lung apex with surrounding groundglass opacity, possibl e radiation pneumonitis/fibrosis if this patient has a history of radiation. Scattered right apical b lebs are seen. Linear airspace disease multifocally likely relates to atelectasis. There is a left basilar cavitary pulmonary mass with some internal air measuring approximately 3.2 x 2.3 cm there is only very mildly hypermetabolic having a maximum SUV of 2.93. Linear scarring at the left lung base and atelectasis are also seen. This is similar in size to the prior CT of the chest, a bdomen, and pelvis measured at 3.4 cm, stable given differences in measurement technique and slice se lection. Estimated on the prior exam of 08/16/2016 this mass has been present dating back to 2014 agai n suggesting a waxing and waning benign process. No abnormal uptake in the left chest wall, pectoralis muscle, or axilla. No suspicious internal mamma ry uptake. ABDOMEN AND PELVIS: No suspicious hypermetabolic uptake. OSSEOUS STRUCTURES: No suspicious hypermetabolic uptake. OTHER CT: The paranasal sinuses and mastoid air cells are well aerated. Moderate degenerative changes of the spine and fusion of the right acromio clavicular joint. Advanced arthropathy of the right coretta ulder and moderate of the left. Multiple old healed right posterior rib fractures are seen. Kyphoplas ty change of the lumbar spine. Multilevel spondylosis. Right main pulmonary artery is enlarged measur ing 2.8 cm, which may represent pulmonary arterial hypertension clinically. Heart is upper limits of normal size. There is engorgement of the distal pulmonary arteries. Right hemidiaphragm elevation is seen in right hemithorax volume loss. There is suboptimal evaluation of the bowel and pelvic viscera given lack of intravenous and oral contrast. Renal cyst measures approximately 3.8 cm. Suspected righ t upper pole renal cyst that is ill-defined. Nonobstructing left 7 mm calculus. Very small hiatal her marci. Moderate degree colonic fecal stasis in scattered diverticula of the colon. Prostate gland is en larged and heterogenous containing central zone calcifications. There is a small fat filled periumbil ical hernia. Punctate calcification of the pancreatic head: Chronic pancreatitis. No current inflamma tory fat stranding surrounding the pancreas. Liver is suboptimally evaluated given spray artifact fro m the patient's arms. Atrophy of the right rectus muscle is incidentally seen. IMPRESSION: 1. With regards to the patient's known left breast cancer there is no evidence of residual or recurre nt disease nor metastasis in the chest, abdomen, nor pelvis. 2. With regards to the patient's known left lower lobe cavitary mass there is only very minimal hyper metabolic uptake with SUV similar to mediastinal background favoring a benign process in addition to presence since 2014. There is no interval growth in comparison to the prior CT dated 08/01/2018 and onl y minimal growth from 2018.
== END | disposition home or self-care (01) ==
LOC: RADPETMAIN 13:25
PROVIDERS: ATTEND Internal Medicine Hematology & Oncology
DX: C50.122 Malignant neoplasm of central portion of left male breast (principal)
CPT/HCPCS: 78815; A9552

== ENCOUNTER → 2020-07-13 | Outpatient (CLI) | payer MEDICARE, BC ==
--- NOTE | 2020-07-16 11:19 | PE ---
EXAMINATION TYPE: PET CT fusion skull to thigh DATE OF EXAM: 07/13/2020 COMPARISON: Prior PET/CT October 23, 2018 and older studies HISTORY: History of left-sided breast cancer diagnosed 2018 with subsequent chemotherapy and radiatio n treatment. TECHNIQUE: Following the intravenous administration of 9.67 mCi of F-18 FDG, whole body images are p erformed from the skull base to the midthigh. Images are reviewed on the computer in the coronal, ax ial, and sagittal planes. Reconstructed rotating images are created on independent workstation and r eviewed on the computer. A localization and attenuation correction CT is performed in conjunction w ith the PET scan. Blood glucose level equals 86. SCAN: Subsequent Scan FINDINGS: SKULL BASE AND NECK: No new areas of abnormal hypermetabolic uptake. CHEST, MEDIASTINUM, AND HILAR REGION: New adjacent prominent Hypermetabolic prevascular lymph nodes a xial images 87 through 90 difficult to accurately measure 2 to adjacent draining superior pulmonary v ein, largest measures approximately 1.5 x 1.0 cm, max SUV is 5.2. Persistent medial left lower lobe cavitary lesion with air-fluid level measuring 4.0 x 3.0 cm axial i mage 114 remains essentially ametabolic. Despite increase in size, lesion presumed benign given the l adia-standing presence and lack of hypermetabolic uptake No additional areas of abnormal hypermetabolic uptake. Tiny bilateral pleural effusions with parenchy mal changes throughout the right lung. Moderate bibasilar scarring and/or atelectasis. Right breast i mplant without new abnormal hypermetabolic uptake. Tlza-mg-ndkdvasb emphysematous change in the lung apices with treatment change to the right lung apex redemonstrated. ABDOMEN AND PELVIS: No new areas of abnormal hypermetabolic uptake. Normal excretion. Slightly subopt imal due to body habitus. OSSEOUS STRUCTURES: No new areas of abnormal hypermetabolic uptake. Increased uptake left shoulder le chelsea consistent with inflammatory change, fairly advanced glenohumeral joint osteoarthritis noted bila terally left greater than right. OTHER CT: Left-sided mastectomy changes redemonstrated. Prominent pulmonary arteries consistent with underlying pulmonary artery hypertension. Elevated right hemidiaphragm with right-sided volume loss r edemonstrated. Continued enlargement of left renal calculus now 12 mm long axis axial image 154. There is new 11 mm calculus likely dependent in bladder axial image 218. Enlarged prostate consistent with BPH redemonst rated. Adjacent scattered pelvic phleboliths. Mild to moderate fat stranding surrounding pancreas, correlate clinically to exclude acute pancreatit is. Underlying scoliosis. Loss of normal lumbar lordosis. Vertebroplasty at advanced compression fracture L1 level redemonstrated. IMPRESSION: Suspicious new hypermetabolic prevascular lymph nodes worrisome for active neoplastic rec urrence. Correlate clinically to exclude acute pancreatitis. Note is made of new 11 mm calculus in bladder.
== END | disposition home or self-care (01) ==
LOC: RADPETMAIN 13:24
PROVIDERS: ATTEND Internal Medicine Hematology & Oncology
DX: C50.122 Malignant neoplasm of central portion of left male breast (principal); N21.0 Calculus in bladder
CPT/HCPCS: 78815; A9552

== ENCOUNTER → 2020-10-12 | Outpatient (CLI) | payer MEDICARE, BC ==
[2020-10-12 14:35] LABS: African American GFR (CKD) >90 (>60 ml/min/1.73 sqM); Blood Urea Nitrogen 19 mg/dL (9-20); Non-African American GFR(CKD) >90 (>60 ml/min/1.73 sqM)
--- NOTE | 2020-10-15 08:43 | CT ---
EXAMINATION TYPE: CT chest w con DATE OF EXAM: 10/12/2020 COMPARISON: 07/30/2018, 10/23/2018, 07/30/2018 HISTORY: 70-year-old male Z03.89, history of breast cancer. Observation for mets TECHNIQUE: Contiguous axial scanning of the chest after the administration of 100 mL of Isovue 300. Coronal/sagittal reconstructions performed. CT DLP: 605.7mGycm. Automatic exposure control utilized for a dose reduction. FINDINGS: Heart normal size without pericardial effusion. Borderline ectatic aortic root at 3.6 cm. Conventional arch vessel branching anatomy. There are ectat ic upper descending thoracic aorta 3.2 cm. Mildly enlarged caliber to the main right and left pulmonary arteries measuring up to 2.7 cm on the r ight. Findings may reflect underlying pulmonary arterial hypertension. A 9 mm lower right paratracheal lymph node is slightly larger as compared to 7 mm previously. AP window lymph node currently 1.9 x 1.0 cm versus 9 mm, previously. Increasing left hilar and suprahilar lobulated opacity cutting off the lingular bronchus. This measur es at least 4.3 x 2.8 cm. This may have increased from 3.1 x 2.3 cm, previously. Some additional patc hy opacity that radiates from this area to the periphery of the left midlung represent postobstructiv e changes. New partial atelectasis of the inferior lingula. Postsurgical change right upper lung and right base. Along the inferior margin of the right upper lung stable lines, there is a new 1.5 cm nodule. Patient's medial left basilar cavitary mass stable to minimally larger at 4.0 x 3.8 cm (versus 4.0 x 3.3 cm, previously). Stable patchy pleural parenchymal scarring in the periphery of the left base but with new nodularity in the left lower lobe. Approximately 5 new nodules are present measuring up to 1.3 cm. Mild to moderate emphysema with scattered reticular changes suggesting fibrosis. Right breast prosthesis. Previous left mastectomy. Visualized upper abdomen shows a benign 4.2 cm cyst in the left kidney and a 1.0 cm nonobstructive le ft renal calculus. Hilar splenule. Bones: Bony ankylosis right AC joint. Degenerative change left glenohumeral joint. Previous vertebrop lasty change at L1. S-shaped scoliosis. IMPRESSION: 1. Increasing size of an AP window lymph node (1.9 cm now versus 9 mm, previously). 2. Increasing left hilar and suprahilar lobulated mass measuring 4.2 x 2.8 cm (versus approximately 3 .1 x 2.3 cm, previously). This now results in cut off of the lingular bronchus. There is some postobs tructive pneumonitis or atelectasis. 3. New 1.5 cm nodule along the inferior margin of the patient's right upper lobe wedge resection site . Also, approximately 5 new nodules in the left lower lobe measuring up to 1.3 cm. 4. Patient's left basilar cavitary mass stable to slightly larger at 4.0 x 3.8 cm (versus 4.0 x 3.3 c m, previously). 5. Overall findings suggest disease progression.
== END | disposition home or self-care (01) ==
LOC: RADCTMAIN 13:54
PROVIDERS: ATTEND Internal Medicine Hematology & Oncology
DX: Z03.89 Encounter for observation for other suspected diseases and conditions ruled out (principal); C50.122 Malignant neoplasm of central portion of left male breast; R91.1 Solitary pulmonary nodule
CPT/HCPCS: 82565; 84520; 71260; 36415; Q9967

== ENCOUNTER 2020-10-25 10:20 | Day surgery (SDC) | payer MEDICARE, BC ==
[2020-10-22 15:53] VITALS: BMI 32.9
[~2020-10-25 10:20] MED LIST changes: -ACETAMINOPHEN TAB 500 MG TAB PO ONE; -DEXAMETHASONE SOD PHOSPHATE 10 MG/ML 1 ML VIAL IV ONE; -HYDROmorphone 0.5 MG/0.5 ML SYRINGE IVP PRN; +LACTATED RINGERS 1,000 ML IV SCH; +LIDOCAINE 1% (10MG/ML) FOR IV START INTRADERMA PRN; -LIDOCAINE 1% 20 ML VIAL (10MG/ML) FOR IV START INTRADERMA PRN; -MELOXICAM 7.5 MG TAB PO ONE; -ONDANSETRON 4 MG/2 ML VIAL IVP ONE; -ROPIVACAINE 246.25 MG, EPINEPHrine 0.5 MG, KETOROLAC 30 MG, cloNIDine HCL/PF 80 MCG, WA... MISCELLANE ONE; -SCOPOLAMINE 1.5MG/72HR PATCH TRANSDERM ONE; -TRANEXAMIC ACID 1,000 MG in SODIUM CHLORIDE 0.9% 100 ML IVPB ONE; -VANCOMYCIN 1,750 MG in SODIUM CHLORIDE 0.9% 500 ML 500 ML IVPB ONE
[2020-10-25 10:42] VITALS: TEMP 97.7
--- NOTE | 2020-10-25 11:56 | CT ---
EXAMINATION TYPE: CT Chest rodrigue Salomon Protocol DATE OF EXAM: 10/25/2020 COMPARISON: Abnormal PET/CT. Lung nodule. History of breast cancer. HISTORY: Navigational bronchoscopy. CT DLP: 622 mGycm Automated exposure control for dose reduction was used. FINDINGS: Exam is for bronchoscopy planning and not for diagnostic purposes. Persistent scarring in the right l riley apex. Stable 1.2 cm nodule medial right upper lobe axial image 21 series 6. Persistent peribronch ial wall thickening and narrowing inferior branch image 36 series 6. Mild to moderate bibasilar linea r scarring and/or atelectasis. Right breast implant redemonstrated. Underlying scoliosis again seen. IMPRESSION: As above.
[2020-10-25] MEDS ORDERED: PROPOFOL 10 MG/ML 20 ML VIAL IV ONE (12:16)
[2020-10-25] MEDS ORDERED: ONDANSETRON 4 MG/2 ML VIAL ONE (12:16)
[2020-10-25] MEDS ORDERED: NEOSTIGMINE 1 MG/ML 10 ML VIAL ONE (12:16)
[2020-10-25] MEDS ORDERED: LIDOCAINE 1% INJ 10MG/ML (20 ML MDV) ONE (12:16)
[2020-10-25] MEDS ORDERED: ROCURONIUM 10 MG/ML (5 ML VIAL) IV ONE (12:16)
[2020-10-25] MEDS ORDERED: GLYCOPYRROLATE 0.2 MG/ML 2 ML VIAL ONE (12:16)
--- NOTE | 2020-10-25 13:25 | PCN ---
PROCEDURE NOTE PROCEDURE PERFORMED: Electromagnetic navigational bronchoscopy. PREOP DIAGNOSIS: Left hilar mass. POSTOP DIAGNOSIS: Left hilar mass. BILLET SHEARER: Dr. Wheat, Dr. Gupta, Dr. Mcleod. The patient was done in room #1 endoscopy [address]. ANESTHESIA: Provided general anesthesia. DESCRIPTION OF PROCEDURE: There was informed consent and universal timeout. After the patient was properly anesthetized, the bronchoscope was inserted through the bronchoscope adapter connected to the endotracheal tube. The bronchoscope was pushed through the endotracheal tube into the trachea. We did a thorough evaluation of both lungs. Including right upper lobe, right middle lobe, right lower lobe, left upper lobe, lingula and left lower lobe. There were thick secretions noted throughout. They were suctioned with the aid of saline lavage. Next we focused on primarily in the area of the lingula as guided by electromagnetic navigational system. We did multiple transbronchial biopsies to the lingula, we also did transbronchial needle aspirations to the area of the lingula, we did brushes as well as in the area of the lingula and also washes and BAL in the area of the lingula. Everything was guided by proper localization using the electromagnetic system provided by the [facility]. There was good localization with all specimens taken. The patient tolerated the procedure well. There was minimal bleeding. The specimens will be sent to the laboratory for analysis. There was no immediate complication. The patient was stable throughout the procedure. The patient will be extubated and recovered in the recovery area. MMODL / IJN: [id number] /
--- NOTE | 2020-10-25 13:35 | XR ---
EXAMINATION TYPE: XR chest 1V portable DATE OF EXAM: 10/25/2020 COMPARISON: 03/14/2018 INDICATION: Post Bronch TECHNIQUE: Single frontal view of the chest is obtained. FINDINGS: The heart size is normal. The pulmonary vasculature is normal. Mild infiltrates in the retrocardiac region. Electronic lines overlie the chest. No pneumothorax is e vident. IMPRESSION: 1. No pneumothorax post bronchoscopy. 2. Retrocardiac infiltrate
[2020-10-25 13:59] VITALS: RESP 20
[2020-10-25 14:58] VITALS: BP 110/68; PULSE 78
[2020-10-25 19:59] LABS: Appearance,BF Bloody; Color,BF Red; Nucleated Cells, Body Fluid 10 /uL; RBC, Body Fluid 35400 /uL
== END 2020-10-25 14:40 ==
LOC: ORWHC2ENDO 10:20
PROVIDERS: ATTEND Internal Medicine Critical Care Medicine
DX: R91.8 Other nonspecific abnormal finding of lung field (principal); C50.921 Malignant neoplasm of unspecified site of right male breast; Z17.0 Estrogen receptor positive status [ER+]; J44.9 Chronic obstructive pulmonary disease, unspecified; G47.33 Obstructive sleep apnea (adult) (pediatric); K21.9 Gastro-esophageal reflux disease without esophagitis; Z79.899 Other long term (current) drug therapy; Z88.2 Allergy status to sulfonamides; Z91.038 Other insect allergy status; E07.9 Disorder of thyroid, unspecified; Z90.11 Acquired absence of right breast and nipple
CPT/HCPCS: 87798 ×3; 87496; 87498; 87529; 88104; 88108; 88305; 88173; 89050; 88342; 87252; 87502; 87634; 88341; 87070; 87205; 87116; 87102; 87206; 71045; 71250; 31628; 31624; 31627; J2710; J2405; J2001; J2704; 31625; 31633

== ENCOUNTER 2021-08-20 23:00 | Inpatient (IN) | payer MEDICARE, BC ==
[2021-08-20] MEDS ORDERED: ONDANSETRON 4 MG/2 ML VIAL IVP STA (23:10)
[2021-08-20] MEDS ORDERED: MORPHINE SULFATE 4 MG/ML SYRINGE IV STA (23:10)
[2021-08-20] MEDS ORDERED: SODIUM CHLORIDE 0.9% 1,000 ML IV STA (23:10)
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
[2021-08-20 23:53] LABS: Basophils # (A) 0.1 k/uL (0-0.2); Basophils % (A) 1 %; Eosinophils # (A) 0.4 k/uL (0-0.7); Eosinophils % (A) 4 %; HCT 44.5 % (39.0-53.0); HGB 14.6 gm/dL (13.0-17.5); Lymphocytes # (A) 1.1 k/uL (1.0-4.8); Lymphocytes % (A) 10 %; MCHC 32.7 g/dL (31.0-37.0); MCV 97.8 fL (80.0-100.0); Mean Platelet Volume 8.2; Monocytes # (A) 0.8 k/uL (0-1.0); Monocytes % (A) 8 %; Neutrophils # (A) 7.6 k/uL (1.3-7.7); Neutrophils % (A) 75 %; Platelet Count 296 k/uL (150-450); RBC 4.55 m/uL (4.30-5.90); RDW 12.4 % (11.5-15.5); WBC 10.1 k/uL (3.8-10.6)
[2021-08-21 00:03] LABS: Appearance,Urine Cloudy (Clear); Bilirubin,Urine Negative (Negative); Blood,Urine Negative (Negative); Color,Urine Yellow; Glucose,Urine (UA) Negative (Negative); Hyaline Casts,Urine 1 /lpf (0-2); INR 1.1 (<1.2); Ketones,Urine Negative (Negative); Leukocyte Esterase,Urine Large (Negative); Mucus,Urine Rare /hpf; Nitrite,Urine Negative (Negative); PH, Urine 5.5 (5.0-8.0); Protein,Urine Trace (Negative); RBC,Urine 2 /hpf (0-5); Specific Gravity,Urine 1.026 (1.001-1.035); Squamous Epithelial Cell,Urine <1 /hpf (0-4); Urobilinogen,Urine <2.0 mg/dL (<2.0); WBC,Urine 113 /hpf (0-5)
[2021-08-21 00:04] LABS: Prothrombin Time 11.4 sec (9.0-12.0)
[2021-08-21 00:13] LABS: ALT 24 U/L (4-49); AST 26 U/L (17-59); African American GFR (CKD) >90 (>60 ml/min/1.73 sqM); Albumin 3.1 g/dL (3.5-5.0); Alkaline Phosphatase 143 U/L (38-126); Anion Gap 4 mmol/L; Blood Urea Nitrogen 24 mg/dL (9-20); Carbon Dioxide 34 mmol/L (22-30); Chloride 102 mmol/L (98-107); Glucose 111 mg/dL (74-99); Non-African American GFR(CKD) >90 (>60 ml/min/1.73 sqM); Potassium 3.7 mmol/L (3.5-5.1); Sodium 140 mmol/L (137-145); Total Bilirubin 0.7 mg/dL (0.2-1.3); Total Protein 7.2 g/dL (6.3-8.2)
--- NOTE | 2021-08-21 00:21 | XR ---
EXAMINATION TYPE: XR chest 1V portable DATE OF EXAM: 08/21/2021 COMPARISON: 10/25/2020 HISTORY: Bronchoscopy TECHNIQUE: Single view FINDINGS: There is some patchy airspace infiltrate in the left mid and lower lung field. No pneumotho rax. Trachea is midline. There is coarsening of interstitial markings. IMPRESSION: Left-sided pulmonary infiltrates appear new compared to old exam. No pneumothorax. No hea rt failure.
--- NOTE | 2021-08-21 00:29 | XR ---
EXAMINATION TYPE: XR Hip RT and AP Pelvis DATE OF EXAM: 08/21/2021 COMPARISON: 03/13/2018 HISTORY: Pain TECHNIQUE: 3 views FINDINGS: There is an acute fracture of the right femoral neck with impaction. The pelvic ring is int act. No dislocation. Proximal left femur is intact. IMPRESSION: Acute impacted fracture of the base of the right femoral neck.
[2021-08-21] MEDS ORDERED: cefTRIAXone IN SWFI 1,000 MG/10 ML SYRINGE IVP STA (00:45)
[2021-08-21] MEDS ORDERED: ONDANSETRON 4 MG/2 ML VIAL IVP PRN (01:10)
[2021-08-21] MEDS ORDERED: NALOXONE 0.4 MG/ML 1 ML VIAL IV PRN (01:10)
[2021-08-21] MEDS ORDERED: ALBUTEROL NEBULIZED 2.5 MG/3 ML INHALATION PRN (01:12)
[2021-08-21] MEDS: MORPHINE SULFATE 4 MG/ML SYRINGE IV PRN ×2 (04:51→11:39)
[2021-08-21] MEDS: SODIUM CHLORIDE 0.9% 1,000 ML IV SCH ×3 (12:49→23:15)
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
[2021-08-21] MEDS ORDERED: PSYLLIUM HUSK 100% 6 GM PACKET PO PRN (13:23)
[2021-08-21] MEDS ORDERED: IPRATROPIUM-ALBUTEROL 3 ML NEB INHALATION PRN (13:23)
[2021-08-21] MEDS ORDERED: HYOSCYAMINE SULFATE 0.125 MG TAB PO PRN (13:23)
[2021-08-21] MEDS ORDERED: HEPARIN SODIUM,PORCINE/PF 5,000 UNIT/0.5 ML SYRINGE SQ SCH (13:30)
[2021-08-21] MEDS: PANTOPRAZOLE 40 MG/10 ML VIAL IVP SCH (13:56)
[2021-08-21] MEDS: LEVOTHYROXINE 25 MCG TAB PO SCH (13:56)
[2021-08-21] MEDS: HYDROmorphone 0.5 MG/0.5 ML SYRINGE IVP PRN ×2 (15:13→17:55)
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
[2021-08-21] MEDS ORDERED: FUROSEMIDE 10 MG/ML 2 ML VIAL IV ONE (16:37)
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
[2021-08-21] MEDS: MORPHINE SULFATE ER 15 MG TABLET PO SCH (19:53)
[2021-08-21] MEDS: SENNOSIDES-DOCUSATE SODIUM 1 EACH TAB PO SCH (19:54)
[2021-08-21] MEDS: IPRATROPIUM-ALBUTEROL 3 ML NEB INHALATION SCH (20:48)
[2021-08-21] MEDS ORDERED: ENOXAPARIN 40 MG/0.4 ML SYRINGE SQ SCH (21:00)
[2021-08-22] MEDS: HYDROmorphone 0.5 MG/0.5 ML SYRINGE IVP PRN ×3 (02:28→12:46)
[2021-08-22] MEDS: LEVOTHYROXINE 50 MCG TAB PO SCH (05:30)
[2021-08-22] MEDS: MORPHINE SULFATE ER 15 MG TABLET PO SCH ×2 (07:30→20:03)
[2021-08-22] MEDS: PANTOPRAZOLE 40 MG/10 ML VIAL IVP SCH (07:31)
--- NOTE | 2021-08-22 07:38 | XR ---
EXAMINATION TYPE: XR chest 1V portable DATE OF EXAM: 08/22/2021 HISTORY: Shortness of breath. COMPARISON: 08/21/2021 TECHNIQUE: Single view of the chest is submitted. FINDINGS: Demonstrated are scattered senescent parenchymal change. Persistent left perihilar and left basilar infiltrate. Prominence of the pulmonary interstitium throu ghout the right lung. The heart is stable. Hilar and mediastinal structures are within normal limits. Degenerative changes are seen of the dorsal spine. IMPRESSION: 1. Persistent left perihilar and left basilar infiltrate. Prominence of the pulmonary interstitium t hroughout the right lung.
[2021-08-22] MEDS: SENNOSIDES-DOCUSATE SODIUM 1 EACH TAB PO SCH ×2 (07:40→20:03)
[2021-08-22] MEDS: CHOLECALCIFEROL 25 MCG (1000 IU) TABLET PO SCH (07:40)
[2021-08-22] MEDS ORDERED: IV FLUID CONTINUATION 300 ML IV ONE (08:18)
[2021-08-22 08:22] LABS: INR 1.1 (<1.2); Prothrombin Time 12.1 sec (9.0-12.0)
[2021-08-22] MEDS ORDERED: PHENYLEPHRINE-0.9% NACL SYG 1,000 MCG/10 ML SYRINGE ONE (08:40)
[2021-08-22] MEDS ORDERED: MIDAZOLAM 2 MG/2 ML VIAL ONE (08:40)
[2021-08-22] MEDS ORDERED: fentaNYL (PF) 50 MCG/ML 2 ML AMP ONE (08:40)
[2021-08-22] MEDS: IPRATROPIUM-ALBUTEROL 3 ML NEB INHALATION SCH ×3 (08:47→20:08)
[2021-08-22 09:05] LABS: Basophils # (A) 0.06 X 10*3/uL (0.00-0.10); Basophils % (A) 0.8 %; Eosinophils # (A) 0.33 X 10*3/uL (0.04-0.35); Eosinophils % (A) 4.5 %; HCT 40.7 % (39.6-50.0); HGB 12.8 g/dL (13.0-17.0); Immature Grans, Automated 0.4 %; Lymphocytes # (A) 0.63 X 10*3/uL (0.90-5.00); Lymphocytes % (A) 8.5 %; MCH 30.4 pg (27.0-32.0); MCHC 31.4 g/dL (32.0-37.0); MCV 96.7 fL (80.0-97.0); Mean Platelet Volume 10.6 fL (9.5-12.2); Monocytes # (A) 1.18 X 10*3/uL (0.20-1.00); NRBC Per 100 WBC 0 /100 WBCS (0.0-0.0); Neutrophils # (A) 5.14 X 10*3/uL (1.80-7.70); Neutrophils % (A) 69.8 %; Platelet Count 278 X 10*3/uL (140-440); RBC 4.21 X 10*6/uL (4.40-5.60); RDW 12.1 % (11.5-14.5); WBC 7.37 X 10*3/uL (4.50-10.00)
[2021-08-22 09:14] LABS: African American GFR (CKD) 104.2 (60.0-200.0); Albumin 2.8 g/dL (3.8-4.9); Albumin/Globulin Ratio 0.76 (1.60-3.17); Anion Gap 7.6 mmol/L (10.00-18.00); BUN/Creat Ratio 26.75 Ratio (12.00-20.00); Blood Urea Nitrogen 21.4 mg/dL (9.0-27.0); Calcium 9.2 mg/dL (8.7-10.3); Carbon Dioxide 27.4 mmol/L (20.0-27.5); Globulin 3.7 g/dL (1.6-3.3); Non-African American GFR(CKD) 89.9 (60.0-200.0); Potassium 4.3 mmol/L (3.5-5.5); Total Bilirubin 0.6 mg/dL (0.30-1.20); Total Protein 6.5 g/dL (6.2-8.2)
[2021-08-22] MEDS ORDERED: SODIUM CHLORIDE 0.9% 500 ML 500 ML IV ONE (09:24)
--- NOTE | 2021-08-22 09:49 | P.OP ---
Date of Procedure: 08/22/21 Preoperative Diagnosis: Subcapital fracture R hip Postoperative Diagnosis: Subcapital fracture right hip Procedure(s) Performed: Right hip hemiarthroplasty Implants: Otoole and nephew Polarstem size 7 standard Otoole & Nephew tandem unipolar, 51 mm Otoole & Nephew tandem unipolar 12/14 taper sleeve, +4 mm All components were press-fit. Anesthesia: spinal Surgeon: Carter Nova Order Planner #1: Anjelica Seth Estimated Blood Loss (ml): 100 Pathology: other (Femoral head) Condition: stable Disposition: PACU Indications for Procedure: This is a 71-year-old gentleman who presented to the emergency room after a fall. He was diagnosed with a subcapital fracture of his right hip. Patient was seen by cardiology and pulmonology and deemed very high risk for surgery. After discussing this high risk with him and his daughter, we have elected to proceed with the surgery due to the severe pain and immobility caused by the fracture. They're wear of the higher risk and potential complications and informed consent was obtained. Operative Findings: The operative findings are consistent with a subcapital fracture of the right hip Description of Procedure: Patient was seen and evaluated in the preoperative area, consent was reviewed and the operative site was marked with a skin marker. Patient was then brought to the operating room and given 2 g of Ancef intravenously. A spinal anesthetic was administered by the anesthesia department. Patient was then placed in a lateral decubitus position and held with a Montral hip positioner. The bony prominences were well-padded and an axillary roll was placed. The hip was then prepped and draped in the usual sterile fashion. A universal timeout was then performed which confirmed the patient's name, surgical site, ALLERGIES, and procedure. A standard anterolateral approach the hip was performed. Skin and subcutaneous tissues were sharply incised with an incision centered over the tip of the greater trochanter. The incision was carefully dissected down to the fascia. The fascia was then split in line with skin incision and a Charnley retractor was gently placed. The abductors were then identified, and the anterior one third of the abductors were released off the trochanter and one large sleeve. The fracture hematoma was evacuated and the proximal femur was exposed by externally rotating the femur. The fracture site was readily visualized. Next, using an osteotomy guide, the proximal femur was osteotomized at the appropriate level of the above the lesser trochanter. This bone was then removed. Attention was then turned to the femoral head. Using a corkscrew, the femoral head was removed from the acetabulum without incident. The acetabulum was inspected, and found to have no significant arthrosis. Femoral head was then measured. Attention was then redirected to the femur. Proximal femur was re-exposed and a box osteotome was used to lateralize the proximal femur. A pad hand was then used to locate the femoral canal. Sequential broaching was then performed to the appropriate size. The calcar was then planed and trial head and neck were placed. The hip was then gently reduced. Leg lengths were checked and found to be equal. Hip was then taken through a full range of motion was stable throughout. The hip was then gently dislocated with the aid of a bone hook. Th e trial head and neck were then removed. The femoral broach was then inspected and found to have a secure fit. The broach was then removed. The hip was then copiously irrigated with antibiotic solution with a pulse lavage. Components were then opened and the femoral stem was then impacted into the proximal femur. The trunnion was cleaned and dried, and the femoral head and neck were then impacted. Hip was again gently reduced. Again leg lengths were checked and found to be equal, and the hip was taken through a full range of motion and found to be stable. The hip was again irrigated with pulsatile lavage, then followed by the Irrrisept solution. The abductors were then repaired through drill holes to the bone to the greater trochanter, utilizing #5 Ethibond suture. Next the fascia was repaired with #2 strata fix suture. The subcutaneous tissue was then repaired with 3-0 Vicryl. The subcuticular tissue was then repaired with 3-0 strata fix suture. Skin was then closed with Exofin skin glue. A sterile dressing was then applied and the patient was transported to the recovery room in stable condition. Order Planner LALA Velazquez was required due to the complexity of surgery the need for skilled surgical first assistant. She assisted with positioning the patient, draping the patient, retraction during the surgery, and closure of the wound.
[2021-08-22] MEDS ORDERED: NALOXONE 0.4 MG/ML 1 ML VIAL IV PRN (10:15)
[2021-08-22] MEDS ORDERED: MAGNESIUM HYDROXIDE 2,400 MG/10 ML CUP PO PRN (10:15)
[2021-08-22] MEDS ORDERED: HYDROmorphone 0.5 MG/0.5 ML SYRINGE IVP PRN ×3 (10:15)
[2021-08-22] MEDS: SODIUM CHLORIDE 0.9% 1,000 ML IV SCH ×2 (10:42→11:15)
--- NOTE | 2021-08-22 11:17 | XR ---
EXAMINATION TYPE: XR Hip Limited RT DATE OF EXAM: 08/22/2021 CLINICAL HISTORY: Postoperative evaluation TECHNIQUE: Single portable view of the right hip was submitted. FINDINGS: Noted are changes of hip arthroplasty with femoral component appearing well seated. Alignm ent is anatomic. Postsurgical soft tissue changes are evident. IMPRESSION: Satisfactory postoperative alignment
[2021-08-22] MEDS ORDERED: FUROSEMIDE 10 MG/ML 2 ML VIAL IV STA (14:30)
[2021-08-22] MEDS: LACTATED RINGERS 1,000 ML IV SCH (14:38)
[2021-08-22] MEDS: HYDROcodone/APAP 5-325MG 1 EACH TAB PO PRN (14:39)
[2021-08-22] MEDS ORDERED: bisacodyL 10 MG SUPP RECTAL STA (14:40)
[2021-08-22] MEDS ORDERED: diazePAM 2 MG TAB PO STA (14:59)
[2021-08-22] MEDS ORDERED: KETOROLAC 15 MG/ML 1 ML VIAL IM STA (15:00)
[2021-08-22] MEDS ORDERED: KETOROLAC 15 MG/ML 1 ML VIAL IVP STA (15:09)
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
--- NOTE | 2021-08-22 16:29 | P.PN ---
Subjective Progress Note Date: 08/22/21 Principal diagnosis: hip fracture In f/u today pt has just returned from surgery, he is still a little groggy but he answered my questions and knew who I was Objective - Vital Signs Vital signs: Vital Signs Temp 97 F L 08/22/21 10:11 Pulse 126 H 08/22/21 13:25 Resp 16 08/22/21 10:55 BP 124/81 08/22/21 13:25 Pulse Ox 97 08/22/21 13:25 FiO2 Intake & Output 08/21/21 08/22/21 08/22/21 18:59 06:59 18:59 Intake Total 1050 Output Total 850 205 Balance -850 845 Weight 108.409 kg Intake: IV 1050 Output: Urine 850 105 Estimated Blood Loss 100 Other: Voiding Method External Catheter External Catheter # Voids 3 - Constitutional General appearance: Present: average body habitus, cooperative, no acute distress - EENT Eyes: Present: anicteric sclerae ENT: Present: hearing grossly normal - Respiratory Respiratory: bilateral: CTA, diminished - Cardiovascular Rhythm: regular Abnormal Heart Sounds: Absent: systolic murmur, diastolic murmur, rub, S3 Gallop, S4 Gallop, click, other - Psychiatric Psychiatric: Present: A&O x's 3, appropriate affect - Labs CBC & Chem 7: 08/22/21 04:33 08/22/21 04:33 Labs: Abnormal Lab Results - Last 24 Hours (Table) 08/22/21 08/22/21 08/22/21 Range/Units 04:33 04:33 08:03 RBC 4.21 L (4.40-5.60) X 10*6/uL Hgb 12.8 L (13.0-17.0) g/dL MCHC 31.4 L (32.0-37.0) g/dL Lymphocytes # 0.63 L (0.90-5.00) X 10*3/uL Monocytes # 1.18 H (0.20-1.00) X 10*3/uL PT 12.1 H (9.0-12.0) sec Anion Gap 7.60 L (10.00-18.00) mmol/L BUN/Creatinine Ratio 26.75 H (12.00-20.00) Ratio AST 12 L (14-35) U/L Albumin 2.8 L (3.8-4.9) g/dL Globulin 3.7 H (1.6-3.3) g/dL Albumin/Globulin Ratio 0.76 L (1.60-3.17) g/dL Microbiology - Last 24 Hours (Table) 08/21/21 11:55 Blood Culture - Preliminary Blood No Growth after 24 hours 08/21/21 11:55 Blood Culture Gram Stain - Preliminary Blood 08/20/21 23:34 Urine Culture - Final Urine,Voided Assessment and Plan (1) Carcinoma of right male breast Current Visit: Yes Status: Chronic Priority: High Code(s): C50.921 - MALIGNANT NEOPLASM OF UNSPECIFIED SITE OF RIGHT MALE BREAST SNOMED Code(s): 393128797 Plan: Pt has long Hx of metastatic breast cancer, with questionable findings of bone mets on imaging in the past. No documented treatment since 01/13. No medications in his med list identified as cancer treatments on my review. Pt has hip fracture, s/p orthopedic intervention. Pending pathology to see if malignant NM BS was ordered to assess skeleton, this has been cancelled and that is reasonable-fracture repaired and will have tissue diagnosis. Ca15.3 was WNDL. Pt is not on active treatment for cancer on admit. Will ask pt, when he is not under the influence of anesthesia, if he has any thoughts or concerns about cancer treatment. Attests: I have seen and examined pt, performed H&P, developed impression and plan of care. Discussed with dictator, agree with dictation, documented as a scribe
[2021-08-23] MEDS: HYDROmorphone 0.5 MG/0.5 ML SYRINGE IVP PRN ×5 (00:15→19:35)
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
[2021-08-23] MEDS: LACTATED RINGERS 1,000 ML IV SCH ×3 (02:16→17:03)
[2021-08-23] MEDS: HYDROcodone/APAP 5-325MG 1 EACH TAB PO PRN ×3 (02:52→10:46)
[2021-08-23] MEDS: LEVOTHYROXINE 25 MCG TAB PO SCH (05:29)
[2021-08-23] MEDS: CHOLECALCIFEROL 25 MCG (1000 IU) TABLET PO SCH (07:36)
[2021-08-23] MEDS: SENNOSIDES-DOCUSATE SODIUM 1 EACH TAB PO SCH ×2 (07:36→21:46)
[2021-08-23] MEDS: PANTOPRAZOLE 40 MG/10 ML VIAL IVP SCH (07:37)
[2021-08-23] MEDS: MORPHINE SULFATE ER 15 MG TABLET PO SCH ×2 (07:37→21:46)
[2021-08-23 07:38] LABS: African American GFR (CKD) >90 (>60 ml/min/1.73 sqM); Anion Gap 4 mmol/L; Blood Urea Nitrogen 23 mg/dL (9-20); Calcium 8.6 mg/dL (8.4-10.2); Carbon Dioxide 29 mmol/L (22-30); Chloride 105 mmol/L (98-107); Glucose 116 mg/dL (74-99); Non-African American GFR(CKD) >90 (>60 ml/min/1.73 sqM); Sodium 138 mmol/L (137-145)
[2021-08-23] MEDS: IPRATROPIUM-ALBUTEROL 3 ML NEB INHALATION SCH ×3 (08:00→19:45)
--- NOTE | 2021-08-23 08:32 | P.PN ---
Subjective Progress Note Date: 08/23/21 Principal diagnosis: Right hip fracture. Status post hemiarthroplasty right hip. Metastatic breast cancer. Multiple medical comorbidities. This is a pleasant 71-year-old male who is status post hemiarthroplasty of the right hip for femoral neck fracture. He continues rate his pain at 10/10. However, nursing states that he has seemed much more comfortable and has not been screaming out in pain like he had been. Vital signs are stable. Objective - Vital Signs Vital signs: Vital Signs Temp 98.0 F 08/23/21 07:57 Pulse 88 08/23/21 08:09 Resp 18 08/23/21 08:09 BP 128/83 08/23/21 07:57 Pulse Ox 99 08/23/21 08:03 FiO2 Intake & Output 08/22/21 08/23/21 08/23/21 18:59 06:59 18:59 Intake Total 1590 Output Total 1205 600 Balance 385 -600 Intake: IV 1050 Oral 540 Output: Urine 1105 600 Estimated Blood Loss 100 Other: Voiding Method External Catheter External Catheter - Exam This is a 71-year-old male in no acute distress. He is alert and oriented. Exam of the right hip reveals that his dressing is clean, dry and intact. He is laying on his right side at the hip and knee in flexion. He has crossing his legs. He has full foot and ankle motion without difficulty or pain. Aide rovascular status to the lower extremity is intact. - Labs CBC & Chem 7: 08/22/21 04:33 08/23/21 06:17 Labs: Abnormal Lab Results - Last 24 Hours (Table) 08/22/21 08/22/21 08/23/21 Range/Units 04:33 04:33 06:17 RBC 4.21 L (4.40-5.60) X 10*6/uL Hgb 12.8 L (13.0-17.0) g/dL MCHC 31.4 L (32.0-37.0) g/dL Lymphocytes # 0.63 L (0.90-5.00) X 10*3/uL Monocytes # 1.18 H (0.20-1.00) X 10*3/uL Anion Gap 7.60 L (10.00-18.00) mmol/L BUN 23 H (9-20) mg/dL Creatinine 0.65 L (0.66-1.25) mg/dL BUN/Creatinine Ratio 26.75 H (12.00-20.00) Ratio Glucose 116 H (74-99) mg/dL AST 12 L (14-35) U/L Albumin 2.8 L (3.8-4.9) g/dL Globulin 3.7 H (1.6-3.3) g/dL Albumin/Globulin Ratio 0.76 L (1.60-3.17) g/dL Microbiology - Last 24 Hours (Table) 08/21/21 11:55 Blood Culture - Preliminary Blood No Growth after 24 hours 08/21/21 11:55 Blood Culture Gram Stain - Preliminary Blood 08/20/21 23:34 Urine Culture - Final Urine,Voided Assessment and Plan (1) Closed right hip fracture Current Visit: Yes Status: Acute Code(s): S72.001A - FRACTURE OF UNSP PART OF NECK OF RIGHT FEMUR, INIT SNOMED Code(s): 772955895 (2) Breast cancer in male Current Visit: No Status: Chronic Priority: Medium Code(s): C50.929 - MALIGNANT NEOPLASM OF UNSP SITE OF UNSPECIFIED MALE BREAST SNOMED Code(s): 965422076 Plan: The clinical findings are discussed with the patient. Continue care. The patient may be discharged to [facility] when cleared medically.
--- NOTE | 2021-08-23 08:52 | XR ---
EXAMINATION TYPE: XR pelvis AP view DATE OF EXAM: 08/23/2021 COMPARISON: 08/21/2021 HISTORY: Post right hip replacement TECHNIQUE: AP right hip is performed. FINDINGS: Femoral head articulates with the acetabulum. Femoral prosthesis stem extends into the prox imal right femur medullary region. No acute fractures are evident. Orientation appears normal. IMPRESSION: 1. No acute fracture dislocation post right hip replacement
[2021-08-23 11:41] LABS: Basophils # (A) 0.04 X 10*3/uL (0.00-0.10); Basophils % (A) 0.4 %; Eosinophils # (A) 0.18 X 10*3/uL (0.04-0.35); Eosinophils % (A) 1.9 %; HGB 11.6 g/dL (13.0-17.0); Immature Grans, Automated 0.4 %; Lymphocytes # (A) 0.68 X 10*3/uL (0.90-5.00); Lymphocytes % (A) 7.2 %; MCH 30.5 pg (27.0-32.0); MCHC 32.2 g/dL (32.0-37.0); MCV 94.7 fL (80.0-97.0); Mean Platelet Volume 10.7 fL (9.5-12.2); Monocytes % (A) 11.7 %; NRBC Per 100 WBC 0 /100 WBCS (0.0-0.0); Neutrophils # (A) 7.37 X 10*3/uL (1.80-7.70); Neutrophils % (A) 78.4 %; Platelet Count 254 X 10*3/uL (140-440); WBC 9.41 X 10*3/uL (4.50-10.00)
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
[2021-08-23] MEDS: HEPARIN SODIUM,PORCINE/PF 5,000 UNIT/0.5 ML SYRINGE SQ SCH ×2 (14:32→21:47)
[2021-08-23] MEDS: SODIUM CHLORIDE 0.9% 1,000 ML IV SCH (16:58)
[2021-08-24] MEDS: HYDROmorphone 0.5 MG/0.5 ML SYRINGE IVP PRN ×4 (00:44→18:03)
[2021-08-24] MEDS: HYDROcodone/APAP 5-325MG 1 EACH TAB PO PRN ×3 (03:44→16:00)
[2021-08-24] MEDS: LACTATED RINGERS 1,000 ML IV SCH ×3 (03:48→21:51)
[2021-08-24] MEDS: LEVOTHYROXINE 25 MCG TAB PO SCH (05:34)
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
[2021-08-24] MEDS: IPRATROPIUM-ALBUTEROL 3 ML NEB INHALATION SCH ×3 (07:22→21:32)
[2021-08-24] MEDS: PANTOPRAZOLE 40 MG/10 ML VIAL IVP SCH (08:13)
[2021-08-24] MEDS: SENNOSIDES-DOCUSATE SODIUM 1 EACH TAB PO SCH ×2 (08:14→21:51)
[2021-08-24] MEDS: MORPHINE SULFATE ER 15 MG TABLET PO SCH ×2 (08:14→21:48)
[2021-08-24] MEDS: HEPARIN SODIUM,PORCINE/PF 5,000 UNIT/0.5 ML SYRINGE SQ SCH ×2 (08:14→21:49)
[2021-08-24] MEDS: CHOLECALCIFEROL 25 MCG (1000 IU) TABLET PO SCH (08:15)
[2021-08-24] MEDS: SODIUM CHLORIDE 0.9% 1,000 ML IV SCH (08:15)
[2021-08-24] MEDS ORDERED: bisacodyL 10 MG SUPP RECTAL STA (10:11)
--- NOTE | 2021-08-24 10:28 | P.PN ---
Subjective Progress Note Date: 08/24/21 Principal diagnosis: Right hip fracture. Status post hemiarthroplasty right hip. Metastatic breast cancer. Multiple medical comorbidities. This is a pleasant 71-year-old male who is status post hemiarthroplasty of the right hip for femoral neck fracture. He continues rate his pain at 10/10. However, nursing states that he has seemed much more comfortable and has not been screaming out in pain like he had been. Vital signs are stable. The patient has not yet had a bowel movement. Objective - Vital Signs Vital signs: Vital Signs Temp 96.7 F L 08/24/21 08:30 Pulse 74 08/24/21 08:30 Resp 18 08/24/21 08:30 BP 120/56 08/24/21 08:30 Pulse Ox 100 08/24/21 08:30 FiO2 Intake & Output 08/23/21 08/24/21 08/24/21 18:59 06:59 18:59 Intake Total 480 800 Output Total 300 900 Balance 180 -100 Intake: Intake, IV Titration 600 Amount Sodium Chloride 0.9% 1, 600 000 ml @ 50 mls/hr IV . Q20H [facility] Rx#:[id number] Oral 480 200 Output: Urine 300 900 Other: Voiding Method Indwelling Catheter Indwelling Catheter Indwelling Catheter # Bowel Movements 0 - Exam This is a 71-year-old male in no acute distress. He is alert and oriented. Exam of the right hip reveals that his dressing is clean, dry and intact. He has full foot and ankle motion without difficulty or pain. Neurovascular status to the lower extremity is intact. - Labs CBC & Chem 7: 08/23/21 06:17 08/23/21 06:17 Labs: Abnormal Lab Results - Last 24 Hours (Table) 08/23/21 Range/Units 06:17 RBC 3.80 L (4.40-5.60) X 10*6/uL Hgb 11.6 L (13.0-17.0) g/dL Hct 36.0 L (39.6-50.0) % Lymphocytes # 0.68 L (0.90-5.00) X 10*3/uL Monocytes # 1.10 H (0.20-1.00) X 10*3/uL Microbiology - Last 24 Hours (Table) 08/21/21 11:55 Blood Culture - Preliminary Blood No Growth after 48 hours 08/21/21 11:55 Blood Culture Gram Stain - Final Blood Blood Culture - Final Bacillus species Not Anthracis Assessment and Plan (1) Closed right hip fracture Current Visit: Yes Status: Acute Code(s): S72.001A - FRACTURE OF UNSP PART OF NECK OF RIGHT FEMUR, INIT SNOMED Code(s): 695470790 (2) Breast cancer in male Current Visit: No Status: Chronic Priority: Medium Code(s): C50.929 - MALIGNANT NEOPLASM OF UNSP SITE OF UNSPECIFIED MALE BREAST SNOMED Code(s): 616454205 Plan: The clinical findings are discussed with the patient. Continue care. The patient may be discharged to [facility] when cleared medically.
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
[2021-08-24] MEDS: LACTULOSE 20 GM/30 ML CUP PO SCH ×3 (14:14→21:51)
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
[2021-08-25] MEDS: LACTULOSE 20 GM/30 ML CUP PO SCH ×5 (03:34→17:07)
[2021-08-25] MEDS: HYDROcodone/APAP 5-325MG 1 EACH TAB PO PRN ×2 (03:37→17:08)
[2021-08-25] MEDS: LEVOTHYROXINE 25 MCG TAB PO SCH (05:38)
[2021-08-25] MEDS: SODIUM CHLORIDE 0.9% 1,000 ML IV SCH (05:38)
[2021-08-25] MEDS: HYDROmorphone 0.5 MG/0.5 ML SYRINGE IVP PRN ×2 (05:43→21:11)
[2021-08-25] MEDS: LACTATED RINGERS 1,000 ML IV SCH ×2 (07:21→07:29)
[2021-08-25] MEDS: MORPHINE SULFATE ER 15 MG TABLET PO SCH ×2 (07:28→20:11)
[2021-08-25] MEDS: CHOLECALCIFEROL 25 MCG (1000 IU) TABLET PO SCH (07:28)
[2021-08-25] MEDS: PANTOPRAZOLE 40 MG/10 ML VIAL IVP SCH (07:28)
[2021-08-25] MEDS: SENNOSIDES-DOCUSATE SODIUM 1 EACH TAB PO SCH ×2 (07:29→20:11)
[2021-08-25] MEDS: HEPARIN SODIUM,PORCINE/PF 5,000 UNIT/0.5 ML SYRINGE SQ SCH ×2 (07:30→20:11)
[2021-08-25] MEDS: IPRATROPIUM-ALBUTEROL 3 ML NEB INHALATION SCH ×3 (08:05→20:07)
[2021-08-25 10:17] LABS: Basophils # (A) 0.03 X 10*3/uL (0.00-0.10); Basophils % (A) 0.4 %; Eosinophils # (A) 0.21 X 10*3/uL (0.04-0.35); Eosinophils % (A) 2.5 %; HCT 34.7 % (39.6-50.0); HGB 10.9 g/dL (13.0-17.0); Immature Grans, Automated 0.5 %; Lymphocytes # (A) 0.72 X 10*3/uL (0.90-5.00); Lymphocytes % (A) 8.6 %; MCH 30.2 pg (27.0-32.0); MCHC 31.4 g/dL (32.0-37.0); MCV 96.1 fL (80.0-97.0); Mean Platelet Volume 10.7 fL (9.5-12.2); Monocytes # (A) 0.89 X 10*3/uL (0.20-1.00); Monocytes % (A) 10.6 %; NRBC Per 100 WBC 0 /100 WBCS (0.0-0.0); Neutrophils # (A) 6.52 X 10*3/uL (1.80-7.70); Neutrophils % (A) 77.4 %; Platelet Count 240 X 10*3/uL (140-440); RBC 3.61 X 10*6/uL (4.40-5.60); RDW 12.1 % (11.5-14.5); WBC 8.41 X 10*3/uL (4.50-10.00)
--- NOTE | 2021-08-25 11:33 | P.PN ---
Subjective Progress Note Date: 08/25/21 Principal diagnosis: Right hip fracture. Status post hemiarthroplasty right hip. Metastatic breast cancer. Multiple medical comorbidities. This is a pleasant 71-year-old male who is status post hemiarthroplasty of the right hip for femoral neck fracture. He continues rate his pain at 10/10. However, nursing states that he has seemed much more comfortable and has not been screaming out in pain like he had been. Vital signs are stable. The patient did have a bowel movement last evening. Objective - Vital Signs Vital signs: Vital Signs Temp 97.9 F 08/25/21 08:00 Pulse 72 08/25/21 08:17 Resp 16 08/25/21 08:00 BP 99/61 08/25/21 08:00 Pulse Ox 99 08/25/21 08:05 FiO2 Intake & Output 08/24/21 08/25/21 08/25/21 18:59 06:59 18:59 Intake Total 300 Output Total 300 300 Balance -300 0 Intake: Oral 300 Output: Urine 300 300 Other: Voiding Method Indwelling Catheter Indwelling Catheter # Bowel Movements 4 - Exam This is a 71-year-old male in no acute distress. He is alert and oriented. E xam of the right hip reveals that his dressing is clean, dry and intact. He has full foot and ankle motion without difficulty or pain. Neurovascular status to the lower extremity is intact. - Labs CBC & Chem 7: 08/25/21 06:37 08/23/21 06:17 Labs: Abnormal Lab Results - Last 24 Hours (Table) 08/25/21 Range/Units 06:37 RBC 3.61 L (4.40-5.60) X 10*6/uL Hgb 10.9 L (13.0-17.0) g/dL Hct 34.7 L (39.6-50.0) % MCHC 31.4 L (32.0-37.0) g/dL Lymphocytes # 0.72 L (0.90-5.00) X 10*3/uL Microbiology - Last 24 Hours (Table) 08/21/21 11:55 Blood Culture - Preliminary Blood No Growth after 72 hours Assessment and Plan (1) Closed right hip fracture Current Visit: Yes Status: Acute Code(s): S72.001A - FRACTURE OF UNSP PART OF NECK OF RIGHT FEMUR, INIT SNOMED Code(s): 823969938 (2) Breast cancer in male Current Visit: No Status: Chronic Priority: Medium Code(s): C50.929 - MALIGNANT NEOPLASM OF UNSP SITE OF UNSPECIFIED MALE BREAST SNOMED Code(s): 415543392 Plan: The clinical findings are discussed with the patient. Continue care. The patient may be discharged to [facility] when cleared medically.
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
[2021-08-26] MEDS: HYDROmorphone 0.5 MG/0.5 ML SYRINGE IVP PRN ×2 (00:39→05:42)
[2021-08-26] MEDS: LEVOTHYROXINE 50 MCG TAB PO SCH (05:39)
[2021-08-26] MEDS: PANTOPRAZOLE 40 MG/10 ML VIAL IVP SCH (07:27)
[2021-08-26] MEDS: CHOLECALCIFEROL 25 MCG (1000 IU) TABLET PO SCH (08:40)
[2021-08-26] MEDS: MORPHINE SULFATE ER 15 MG TABLET PO SCH ×2 (08:40→19:54)
[2021-08-26] MEDS: SENNOSIDES-DOCUSATE SODIUM 1 EACH TAB PO SCH ×2 (08:40→19:55)
[2021-08-26] MEDS: LACTULOSE 20 GM/30 ML CUP PO SCH (08:41)
[2021-08-26] MEDS: HEPARIN SODIUM,PORCINE/PF 5,000 UNIT/0.5 ML SYRINGE SQ SCH ×2 (08:41→19:54)
[2021-08-26] MEDS: IPRATROPIUM-ALBUTEROL 3 ML NEB INHALATION SCH ×3 (08:45→20:22)
--- NOTE | 2021-08-26 11:05 | P.PN ---
Subjective Progress Note Date: 08/26/21 Principal diagnosis: Right hip fracture. Status post hemiarthroplasty right hip. Metastatic breast cancer. Multiple medical comorbidities. This is a pleasant 71-year-old male who is status post hemiarthroplasty of the right hip for femoral neck fracture. He continues rate his pain at 10/10. However, nursing states that he has seemed much more comfortable and has not been screaming out in pain like he had been. Vital signs are stable. Objective - Vital Signs Vital signs: Vital Signs Temp 98.1 F 08/26/21 07:44 Pulse 80 08/26/21 08:57 Resp 18 08/26/21 07:44 BP 94/41 08/26/21 07:44 Pulse Ox 98 08/26/21 07:44 FiO2 Intake & Output 08/25/21 08/26/21 08/26/21 18:59 06:59 18:59 Output Total 300 200 Balance -300 -200 Output: Urine 300 200 Other: Voiding Method Indwelling Catheter Indwelling Catheter - Exam This is a 71-year-old male in no acute distress. He is alert and oriented. Exam of the right hip reveals that his dressing is clean, dry and intact. He has full foot and ankle motion without difficulty or pain. Neurovascular status to the lower extremity is intact. - Labs CBC & Chem 7: 08/25/21 06:37 08/23/21 06:17 Labs: Microbiology - Last 24 Hours (Table) 08/21/21 11:55 Blood Culture - Preliminary Blood No Growth after 96 hours Assessment and Plan (1) Closed right hip fracture Current Visit: Yes Status: Acute Code(s): S72.001A - FRACTURE OF UNSP PART OF NECK OF RIGHT FEMUR, INIT SNOMED Code(s): 147269036 (2) Breast cancer in male Current Visit: No Status: Chronic Priority: Medium Code(s): C50.929 - MALIGNANT NEOPLASM OF UNSP SITE OF UNSPECIFIED MALE BREAST SNOMED Code(s): 562860527 Plan: The clinical findings are discussed with the patient. Continue care. The patient may be discharged to [facility] when cleared medically.
[2021-08-26] MEDS: HYDROcodone/APAP 7.5-325MG 1 EACH TAB PO PRN (11:36)
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
[2021-08-27] MEDS: HYDROcodone/APAP 7.5-325MG 1 EACH TAB PO PRN ×4 (03:56→23:47)
--- NOTE | 2021-08-27 07:22 | XR ---
EXAMINATION TYPE: XR chest 1V portable DATE OF EXAM: 08/27/2021 Comparison: 08/22/2021 Clinical History: 71-year-old male CHF Findings: Heart mildly enlarged. Interstitial opacities persist. Previous left midlung opacity become less conf luent. Mild patchy left basilar opacity remains. Impression: Mild cardiomegaly with persistent interstitial changes. Aeration slightly improved at the left midlun g. Patchy left basilar atelectasis and/or consolidation is similar.
[2021-08-27] MEDS: MORPHINE SULFATE ER 15 MG TABLET PO SCH ×2 (08:13→21:01)
[2021-08-27] MEDS: LEVOTHYROXINE 25 MCG TAB PO SCH (08:14)
[2021-08-27] MEDS: CHOLECALCIFEROL 25 MCG (1000 IU) TABLET PO SCH (08:14)
[2021-08-27] MEDS: SENNOSIDES-DOCUSATE SODIUM 1 EACH TAB PO SCH ×2 (08:14→21:01)
[2021-08-27] MEDS: PANTOPRAZOLE 40 MG/10 ML VIAL IVP SCH (08:15)
[2021-08-27] MEDS: HEPARIN SODIUM,PORCINE/PF 5,000 UNIT/0.5 ML SYRINGE SQ SCH ×2 (08:15→21:02)
[2021-08-27] MEDS: LACTULOSE 20 GM/30 ML CUP PO SCH (08:16)
[2021-08-27] MEDS: IPRATROPIUM-ALBUTEROL 3 ML NEB INHALATION SCH ×3 (08:48→19:54)
[2021-08-27 10:38] LABS: Basophils # (A) 0.04 X 10*3/uL (0.00-0.10); Basophils % (A) 0.6 %; Eosinophils # (A) 0.33 X 10*3/uL (0.04-0.35); HCT 32.6 % (39.6-50.0); HGB 10.3 g/dL (13.0-17.0); Immature Grans, Automated 0.3 %; Lymphocytes # (A) 0.75 X 10*3/uL (0.90-5.00); Lymphocytes % (A) 11.3 %; MCH 30.2 pg (27.0-32.0); MCHC 31.6 g/dL (32.0-37.0); MCV 95.6 fL (80.0-97.0); Mean Platelet Volume 10.8 fL (9.5-12.2); Monocytes # (A) 0.66 X 10*3/uL (0.20-1.00); NRBC Per 100 WBC 0 /100 WBCS (0.0-0.0); Neutrophils # (A) 4.82 X 10*3/uL (1.80-7.70); Neutrophils % (A) 72.8 %; Platelet Count 285 X 10*3/uL (140-440); RBC 3.41 X 10*6/uL (4.40-5.60); WBC 6.62 X 10*3/uL (4.50-10.00)
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
[2021-08-28] MEDS: HYDROcodone/APAP 7.5-325MG 1 EACH TAB PO PRN ×3 (06:10→18:00)
[2021-08-28] MEDS: LEVOTHYROXINE 25 MCG TAB PO SCH (06:10)
[2021-08-28] MEDS: IPRATROPIUM-ALBUTEROL 3 ML NEB INHALATION SCH ×3 (08:04→20:02)
[2021-08-28] MEDS: MORPHINE SULFATE ER 15 MG TABLET PO SCH ×2 (09:10→21:30)
[2021-08-28] MEDS: LACTULOSE 20 GM/30 ML CUP PO SCH (09:10)
[2021-08-28] MEDS: PANTOPRAZOLE 40 MG/10 ML VIAL IVP SCH (09:10)
[2021-08-28] MEDS: SENNOSIDES-DOCUSATE SODIUM 1 EACH TAB PO SCH ×2 (09:10→21:31)
[2021-08-28] MEDS: CHOLECALCIFEROL 25 MCG (1000 IU) TABLET PO SCH (09:11)
[2021-08-28] MEDS: HEPARIN SODIUM,PORCINE/PF 5,000 UNIT/0.5 ML SYRINGE SQ SCH ×2 (09:11→21:31)
--- NOTE | 2021-08-28 11:15 | P.PN ---
Subjective Progress Note Date: 08/28/21 Principal diagnosis: Right hip fracture. Status post hemiarthroplasty right hip. Metastatic breast cancer. Multiple medical comorbidities. This is a pleasant 71-year-old male who is status post hemiarthroplasty of the right hip for femoral neck fracture on 08/22/2021. He continues rate his pain at 10/10. However, nursing states that he has seemed much more comfortable and has not been screaming out in pain like he had been. Vital signs are stable. The patient is refusing transfer back to [facility] stating that he has not leaving the hospital until he is better than he was before he came in. the patient's daughter is also refusing discharge. She was instructed by case management yesterday to call the phone number to a appeal his discharge with Medicare. She reportedly did not make a phone call or start the appeal process. Objective - Vital Signs Vital signs: Vital Signs Temp 98.5 F 08/28/21 06:59 Pulse 63 08/28/21 08:13 Resp 18 08/28/21 08:55 BP 105/65 08/28/21 06:59 Pulse Ox 97 08/28/21 08:04 FiO2 Intake & Output 08/27/21 08/28/21 08/28/21 18:59 06:59 18:59 Intake Total 240 Output Total 300 300 Balance -60 -300 Intake: Oral 240 Output: Urine 300 300 Other: Voiding Method Indwelling Catheter Indwelling Catheter Indwelling Catheter - Exam This is a 71-year-old male in no acute distress. He is alert and oriented. Exam of the right hip reveals that his dressing is clean, dry and intact. He has full foot and ankle motion without difficulty or pain. Neurovascular status to the lower extremity is intact. - Labs CBC & Chem 7: 08/27/21 05:33 08/23/21 06:17 Labs: Microbiology - Last 24 Hours (Table) 08/21/21 11:55 Blood Culture - Final Blood No Growth after 144 hours Assessment and Plan (1) Closed right hip fracture Current Visit: Yes Status: Acute Code(s): S72.001A - FRACTURE OF UNSP PART OF NECK OF RIGHT FEMUR, INIT SNOMED Code(s): 835762855 (2) Breast cancer in male Current Visit: No Status: Chronic Priority: Medium Code(s): C50.929 - MALIGNANT NEOPLASM OF UNSP SITE OF UNSPECIFIED MALE BREAST SNOMED Code(s): 016569693 Plan: The clinical findings are discussed with the patient. The patient will be discharged to [facility] today. There was no appeal process started. The patient has been here 1 week and there is no medical need for him to be inpatient.
--- NOTE | 2021-08-28 11:19 | P.DS ---
Providers Date of admission: 08/21/21 02:34 Expected date of discharge: 08/27/21 Attending physician: Carter Nova Consults: 08/21/21 01:10 Consult Physician Urgent Consulting Provider: Nish Monroy Consult Reason/Comments: Medical management Do you want consulting provider notified?: Yes 08/21/21 10:14 Consult Physician Routine Consulting Provider: Mahamed Abarca Consult Reason/Comments: CANCER AND KNOW PATIENT Do you want consulting provider notified?: Yes 08/21/21 11:18 Consult Physician Routine Consulting Provider: Arabella Mcgraw Consult Reason/Comments: PRE OP CLEARNACE ABNORMAL CXR Do you want consulting provider notified?: Yes Primary care physician: Babak De Jesus - Discharge Diagnosis(es) (1) Closed right hip fracture Current Visit: Yes Status: Acute (2) Breast cancer in male Current Visit: No Status: Chronic Priority: Medium Hospital Course: This is a 71-year-old male who presented on 08/21/2021 after falling and sustaining injury to the right hip. On exam and x-ray in the emergency department she was found to have a hip fracture. The pt is admitted to our service for surgical intervention and care. The patient is taken to surgery for hemiarthroplasty of the right hip. The procedure is performed without complication or sequelae. The patient has remained stable since surgery. He continues her rates his pain 10/10 but is sleeping soundly each time I went to his room to evaluate him. Vital signs are stable on postop day #6. The patient and his daughter are refusing discharge. The daughter was instructed to call the number for Medicare appeals to appeal the discharge but she did not make the phone call. There has been no appeal process started. He will be discharged to [facility] today. He is stable medically and there is no medical need for inpatient care. Please refer to the med rec for accurate list of medications. Patient Condition at Discharge: Fair Plan - Discharge Summary New Discharge Prescriptions: New cefUROXime axetiL [Ceftin] 500 mg PO BID 3 Days #6 tab Ipratropium-Albuterol Nebulize [Duoneb 0.5 mg-3 mg/3 ml Soln] 3 ml INHALATION RT-TID each Heparin Sodium,Porcine [Heparin Sodium] 5,000 unit SQ Q12HR 30 Days #60 each Continue clonazePAM [KlonoPIN] 1 mg PO HS@2100 Clotrimazole/Betameth Cream [Lotrisone] 1 applic TOPICAL DAILY Psyllium Husk 100% [Metamucil Packet] 6 gm PO DAILY PRN PRN Reason: Constipation Na Phos,M-B/Na Phos,Di-Ba [Fleet Adult] 118 ml RECTAL ONCE PRN PRN Reason: Constipation Sennosides/Docusate Sodium [Senna Plus 8.6-50 mg Tablet] 2 tab PO BID@899,2099 Naloxegol Oxalate [Movantik] 25 mg PO DAILY@1100 Morphine Sulfate ER [Ms Contin] 15 mg PO BID@899,2099 #2 tab Levothyroxine Sodium [Synthroid] 50 mcg PO MOTH@899 Levothyroxine Sodium [Synthroid] 25 mcg PO SUTUWEFRSA Lactulose [Cephulac] 20 gm PO BID@899,2099 Acetaminophen Tab [Tylenol] 500 mg PO Q6H PRN PRN Reason: Pain Magnesium Hydroxide [Milk of Magnesia] 2,400 mg PO DAILY PRN PRN Reason: Constipation Ipratropium-Albuterol Nebulize [Duoneb 0.5 mg-3 mg/3 ml Soln] 3 ml INHALATION RT-Q4H PRN PRN Reason: Shortness Of Breath Or Wheezing Hyoscyamine Sulfate [Levsin] 0.125 mg PO Q4H PRN PRN Reason: INCREASED SECRETION bisacodyL [Dulcolax] 10 mg RECTAL ONCE PRN PRN Reason: Constipation bisacodyL [Bisacodyl] 10 mg PO DAILY PRN PRN Reason: Constipation Lactose-Reduced Food [Ensure Plus] 1 can PO TID@0800,1200,1700 Cholecalciferol [Vitamin D3 (25 Mcg = 1000 Iu)] 50 mcg PO DAILY@0900 Ida-Lanta Susp 30 ml PO Q4H PRN PRN Reason: Gi Upset oxyCODONE-APAP 10-325MG [Percocet 10-325 mg] 1 tab PO Q6H PRN #6 tab PRN Reason: Pain Discharge Medication List Acetaminophen Tab [Tylenol] 500 mg PO Q6H PRN 10/22/20 [History] Lactulose [Cephulac] 20 gm PO BID@899,209910/22/20 [History] Levothyroxine Sodium [Synthroid] 25 mcg PO SUTUWEFRSA 10/22/20 [History] Levothyroxine Sodium [Synthroid] 50 mcg PO MOTH@0900 10/22/20 [History] clonazePAM [KlonoPIN] 1 mg PO HS@209910/22/20 [History] Cholecalciferol [Vitamin D3 (25 Mcg = 1000 Iu)] 50 mcg PO DAILY@0900 08/21/21 [History] Clotrimazole/Betameth Cream [Lotrisone] 1 applic TOPICAL DAILY 08/21/21 [History] Ida-Lanta Susp 30 ml PO Q4H PRN 08/21/21 [History] Hyoscyamine Sulfate [Levsin] 0.125 mg PO Q4H PRN 08/21/21 [History] Ipratropium-Albuterol Nebulize [Duoneb 0.5 mg-3 mg/3 ml Soln] 3 ml INHALATION RT-Q4H PRN 08/21/21 [History] Lactose-Reduced Food [Ensure Plus] 1 can PO TID@0800,1200,1700 08/21/21 [History] Magnesium Hydroxide [Milk of Magnesia] 2,400 mg PO DAILY PRN 08/21/21 [History] Na Phos,M-B/Na Phos,Di-Ba [Fleet Adult] 118 ml RECTAL ONCE PRN 08/21/21 [History] Naloxegol Oxalate [Movantik] 25 mg PO DAILY@1100 08/21/21 [History] Psyllium Husk 100% [Metamucil Packet] 6 gm PO DAILY PRN 08/21/21 [History] Sennosides/Docusate Sodium [Senna Plus 8.6-50 mg Tablet] 2 tab PO BID@0900,2100 08/21/21 [History] bisacodyL [Bisacodyl] 10 mg PO DAILY PRN 08/21/21 [History] bisacodyL [Dulcolax] 10 mg RECTAL ONCE PRN 08/21/21 [History] Heparin Sodium,Porcine [Heparin Sodium] 5,000 unit SQ Q12HR 30 Days #60 each 08/27/21 [Rx] Ipratropium-Albuterol Nebulize [Duoneb 0.5 mg-3 mg/3 ml Soln] 3 ml INHALATION RT-TID each 08/27/21 [Rx] Morphine Sulfate ER [Ms Contin] 15 mg PO BID@0900,2100 #2 tab 08/27/21 [Rx] cefUROXime axetiL [Ceftin] 500 mg PO BID 3 Days #6 tab 08/27/21 [Rx] oxyCODONE-APAP 10-325MG [Percocet 10-325 mg] 1 tab PO Q6H PRN #6 tab 08/27/21 [Rx] Follow up Appointment(s)/Referral(s): Babak De Jesus MD [Primary Care Provider] - 1-2 days [facility], [NON-STAFF] - As Needed Carter Nova DO [Doctor of Osteopathic Medicine] - 4 Weeks Activity/Diet/Wound Care/Special Instructions: May bear weight as tolerated. Leave Optifoam dressing intact 7 days. May shower. Anticoagulation and pain management per internal medicine. Discharge Disposition: TRANSFER TO SNF/ECF
[2021-08-28 13:46] VITALS: BMI 30.7
[2021-08-28] MEDS: PIPERACILLIN-TAZOBACTAM 3.375 GM in SODIUM CHLORIDE 0.9% 100 ML IVPB SCH (15:03)
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
[2021-08-29] MEDS: PIPERACILLIN-TAZOBACTAM 3.375 GM in SODIUM CHLORIDE 0.9% 100 ML IVPB SCH ×3 (00:55→15:50)
[2021-08-29] MEDS: HYDROcodone/APAP 7.5-325MG 1 EACH TAB PO PRN ×2 (04:05→16:11)
[2021-08-29] MEDS: LEVOTHYROXINE 50 MCG TAB PO SCH (05:20)
[2021-08-29] MEDS: IPRATROPIUM-ALBUTEROL 3 ML NEB INHALATION SCH ×2 (07:03→12:00)
[2021-08-29] MEDS: MORPHINE SULFATE ER 15 MG TABLET PO SCH (07:46)
[2021-08-29] MEDS: HEPARIN SODIUM,PORCINE/PF 5,000 UNIT/0.5 ML SYRINGE SQ SCH (07:46)
[2021-08-29] MEDS: CHOLECALCIFEROL 25 MCG (1000 IU) TABLET PO SCH (07:46)
[2021-08-29] MEDS: SENNOSIDES-DOCUSATE SODIUM 1 EACH TAB PO SCH (07:47)
[2021-08-29] MEDS: LACTULOSE 20 GM/30 ML CUP PO SCH (07:47)
[2021-08-29 08:32] VITALS: TEMP 98.1
[2021-08-29] MEDS: PANTOPRAZOLE 40 MG/10 ML VIAL IVP SCH (08:48)
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
[2021-08-29 14:59] VITALS: BP 104/65; PULSE 60
[2021-08-29 16:12] VITALS: RESP 18
== END 2021-08-29 18:32 | DRG 522 ==
LOC: EC 23:00 → 4SSUR 08-21 02:34
PROVIDERS: ADMIT Hospitalist; ATTEND Hospitalist
PROC: 0SRR0JA Replacement of Right Hip Joint, Femoral Surface with Synthetic Substitute, Uncemented, Open Approach (ICD-10-PCS; principal; 2021-08-22 08:30)
DX: S72.011A Unspecified intracapsular fracture of right femur, initial encounter for closed fracture (principal); N39.0 Urinary tract infection, site not specified; C77.3 Secondary and unspecified malignant neoplasm of axilla and upper limb lymph nodes; C34.90 Malignant neoplasm of unspecified part of unspecified bronchus or lung; E03.9 Hypothyroidism, unspecified; K21.9 Gastro-esophageal reflux disease without esophagitis; F32.A Depression, unspecified; F41.9 Anxiety disorder, unspecified; R13.10 Dysphagia, unspecified; J44.9 Chronic obstructive pulmonary disease, unspecified; K59.00 Constipation, unspecified; M19.90 Unspecified osteoarthritis, unspecified site; W19.XXXA Unspecified fall, initial encounter; C50.921 Malignant neoplasm of unspecified site of right male breast; Z96.652 Presence of left artificial knee joint; Z87.820 Personal history of traumatic brain injury; Z99.3 Dependence on wheelchair; Z87.891 Personal history of nicotine dependence; Z74.01 Bed confinement status; Z15.01 Genetic susceptibility to malignant neoplasm of breast; Z79.810 Long term (current) use of selective estrogen receptor modulators (SERMs); Z79.811 Long term (current) use of aromatase inhibitors; Z79.82 Long term (current) use of aspirin; Z79.890 Hormone replacement therapy; Z90.13 Acquired absence of bilateral breasts and nipples; Z92.21 Personal history of antineoplastic chemotherapy; Z92.3 Personal history of irradiation
CPT/HCPCS: 36415; 71045; 72170; 73501; 73502; 80048; 80053; 81001; 85025; 85610; 85730; 86300; 86850; 86900; 86901; 87040; 87086; 87502; 87635; 88305; 88311; 88341; 88342; 93005; 94640; 94760; 96365; 96372; 96375; 96376; 99284